=== PATIENT | female | born 1940 | race African-American/Black ===

== ENCOUNTER 2017-03-07 18:08 | Inpatient (IN) | payer MEDICARE, MEDICAID ==
[2017-03-07] MEDS ORDERED: Sodium Chloride 0.9% 1,000 ML IV ONE (20:41)
--- NOTE | 2017-03-07 20:44 | ED Physician Chart ---
ED Chief Complaint/HPI - Patient Information Date Seen:: 03/07/17 Time Seen:: 20:30 Chief Complaint:: abnormal labs History of Present Illness:: location: general quality: abnormal labs severity: mild, mod duration: few days context: SNF pt had routine labs drawn today. sodium is found to be low. pt case discussed with SNF physician who advised to send pt to ER for ER medical screening exam. pt reports no pain complaint. no chest pain, no shortness of breath. no acute complaint from patient on arrival. when reevaluated by RN and physician. pt says she feels a little weak and dizzy. 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: none hx from pt, medic, rn Allergies:: Allergies Allergy/AdvReac Type Severity Reaction Status Date / Time lovastatin Allergy Verified 03/07/17 18:40 Vitals:: Vital Signs - 8 hr 03/07/17 18:23 Temp 97.7 F HR 69 RR 18 BP 140/80 O2 Sat % 97 Historian:: Patient, EMS, Medical Records Review:: Nurse's Note Reviewed, EMS run form Reviewed ED Review of Systems - Review of Systems General/Constitutional: No fever, No chills, No weight loss, No weakness, No diaphoresis, No edema, No loss of appetite Skin: No skin lesions, No rash, No bruising Head: No headache, No light-headedness Eyes: No loss of vision, No pain, No diplopia ENT: No earache, No nasal drainage, No sore throat, No tinnitus Neck: No neck pain, No swelling, No thyromegaly, No stiffness, No mass noted Cardio Vascular: No chest pain, No palpitations, No PND, No orthopnea, No edema Pulmonary: No SOB, No cough, No sputum, No wheezing GI: No nausea, No vomiting, No diarrhea, No pain, No melena, No hematochezia, No constipation, No hematemesis G/U: No dysuria, No frequency, No hematuria Musculoskeletal: No bone or joint pain, No back pain, No muscle pain Endocrine: No polyuria, No polydipsia Psychiatric: No prior psych history, No depression, No anxiety, No suicidal ideation Hematopoietic: No bruising, No lymphadenopathy Allergic/Immuno: No urticaria, No angioedema Neurological: No syncope, No focal symptoms, No weakness, No paresthesia, No headache, No seizure, No dizziness, No confusion, No vertigo ED Past Medical History - Past Medical History Past Medical History: HTN, PUD/GERD, Dementia (constipation) Family History: None Social History: Non Smoker, No Alcohol, No Drug Use, Single, Care Facility Surgical History: None Psychiatricy History: Schizophrenia, Dementia, Other Medication: Reviewed Family Medical History - Family Member Mother History Unknown: Yes ED Physical Exam - Physical Examination General/Constitutional: Awake, Well-developed, well-nourished, Alert, No distress, GCS 15, Non-toxic appearing, Ambulatory Head: Atraumatic Eyes: Lids, conjuctiva normal, PERRL, EOMI Skin: Nl inspection, No rash, No skin lesions, No ecchymosis, Well hydrated, No lymphadenopathy ENMT: External ears, nose nl, Nasal exam nl, Lips, teeth, gums nl Neck: Nontender, Full ROM w/o pain, No JVD, No nuchal rigidity, No bruit, No mass, No stridor Respiratory: Nl effort/Exclusion, Clear to Auscultation, No Wheeze/Rhonchi/Rales Cardio Vascular: RRR, No murmur, gallop, rubs, NL S1 S2 GI: No tenderness/rebounding/guarding, Normal BS's, Nondistended : No CVA tenderness Extremities: No tenderness or effusion, Full ROM, normal strength in all extremities, No edema, Normal digits & nails Neuro/Psych: Alert/oriented, Normal sensory exam, Normal motor strength, Judgement/insight normal, Mood normal, Normal gait, No focal deficits Misc: Normal back, No paraspinal tenderness ED Assessment - Assessment General Assessment: pt in stable condition while in ER. ambulated to bathroom with RN with steady but slow gait. no fall, no instability. ED Septic Shock - . Is Septic Shock (SBP<90, OR Lactate>4 mmol\L) present?: No - <6hrs of presentation: Vital Signs: Vital Signs - 8 hr 03/07/17 18:23 Temp 97.7 F HR 69 RR 18 BP 140/80 O2 Sat % 97 ED Reassessment (Disposition) - Reassessment Reassessment:: pt in stable condition while in ER. still reports some generalized weakness, and some mild dizziness when ambulating with assistance. Reassessment Condition:: Improved - Diagnosis Diagnosis:: Hyponatremia, generalized weakness. - Patient Disposition Discharge/Transfer:: Acute Care w/in this hosp Admitted to:: Med/Surg Admitting Medical Physician:: Phan Hernandez Time:: 23:30 Condition at Disposition:: Stable, Improved
[2017-03-07 21:00] LABS: EOSINOPHILE ABSOLUTE 0.2 Th/cmm (0.1-0.4); HEMATOCRIT 32.8 % (41.0-60); HEMOGLOBIN 11.2 gm/dL (12-16); LYMPHOCYTE ABSOLUTE 0.4 Th/cmm (1.5-3.0); MEAN CELL VOLUME 89.3 fl (81-100); MEAN CORPUSCULAR HEMOGLOBIN 30.6 pg (27.0-31.0); MEAN CORPUSCULAR HGB CONC 34.3 pg (28.0-36.0); MEAN PLATELET VOLUME 5.9 fl; MONOCYTE ABSOLUTE 1.9 Th/cmm (0.3-1.0); PLATELET COUNT 356 Th/cmm (150-400); RED BLOOD COUNT 3.67 Mil/cmm (3.80-5.20); WHITE BLOOD COUNT 6.5 Th/cmm (4.8-10.8)
[2017-03-07 21:23] LABS: ALB/GLOB RATIO 1.3 (1.0-1.8); ALBUMIN 4.3 gm/dL (3.7-5.3); ALKALINE PHOSPHATASE 89 U/L (34-104); ANION GAP 11.2 (7.0-16.0); BILIRUBIN,TOTAL 0.5 mg/dL (0.3-1.0); BUN - UREA NITROGEN 10 mg/dL (7-25); CALCIUM SERUM 9.3 mg/dL (8.6-10.3); CARBON DIOXIDE 24.1 mEq/L (21.0-31.0); CHLORIDE 87 mEq/L (98-107); CREATININE - SERUM 0.6 mg/dL (0.6-1.2); GLUCOSE 123 mg/dL (70-105); POTASSIUM SERUM 4.3 mEq/L (3.5-5.1); SGOT 48 U/L (13-39); SGPT/ALT 22 U/L (7-52); TOTAL PROTEIN,SERUM 7.5 gm/dL (6.0-8.3)
[2017-03-07 21:28] LABS: SODIUM SERUM 118 mEq/L (136-145)
[2017-03-07 21:52] LABS: BAND NEUTROPHILE 0 % (0-10); BASOPHIL 0 % (0-3); EOSINOPHIL 1 % (0-5); LYMPHOCYTE 40 % (20-50); MONOCYTE 9 % (2-10); NEUTROPHILS 50 % (40-80); PLATELET ESTIMATE ADEQUATE (NORMAL); PLATELET MORPHOLOGY NORMAL (NORMAL); TOTAL CELLS COUNTED 100
[2017-03-07 22:27] LABS: URINE MICROSCOPIC INDICATED? YES; URINE SOURCE CLEAN C
[2017-03-07 22:33] LABS: URINE BILIRUBIN NEGATIVE (NEGATIVE); URINE BLOOD NEGATIVE (NEGATIVE); URINE CLARITY CLEAR (CLEAR); URINE COLOR OTHER; URINE GLUCOSE (UA) NEGATIVE (NEGATIVE); URINE KETONE NEGATIVE (NEGATIVE); URINE LEUKOCYTE ESTERASE NEGATIVE (NEGATIVE); URINE NITRATE NEGATIVE (NEGATIVE); URINE PROTEIN NEGATIVE (NEGATIVE); URINE UROBILINOGEN 0.2 E.U./dL (0.2 - 1.0)
[2017-03-07 22:34] LABS: URINE BACTERIA FEW /hpf (NONE SEEN); URINE EPITHELIAL CELLS FEW /lpf (FEW); URINE RBC 0-2 /hpf (0-5); URINE WBC 0-2 /hpf (0-5)
[2017-03-07 23:15] LABS: INF A SCREEN NEG FOR INF A; INF B SCREEN NEG FOR INF B
[2017-03-08] MEDS ORDERED: Sodium Chloride 0.9% 1,000 ML IV ONE (00:50)
[2017-03-08 03:35] VITALS: BP 146/75
--- NOTE | 2017-03-08 08:00 | Diagnostic Imaging Report ---
Portable chest x-ray Time: 2249 hours History: Cough Allowing for portable technique the heart size is normal. No focal pulmonary parenchymal processes. No hilar or mediastinal abnormalities. Impression: No acute abnormalities.
[2017-03-08] MEDS ORDERED: Sodium Chloride 3% 500 ML IV ONE (18:00)
--- NOTE | 2017-03-08 19:02 | History and Physical ---
History of Present Illness - HPI Chief Complaint: abnormal labs HPI: This is a 76 year old female who is a correction resident [facility] to hyponatremia. Patient did no have any fevers but complained of weakness and dizziness. Vital Signs: Last Vital Signs Temp 98.3 F 03/08/17 16:00 Pulse 64 03/08/17 16:00 Resp 18 03/08/17 16:00 BP 156/82 03/08/17 16:00 Pulse Ox 98 03/08/17 16:00 Past Medical History Other History: HTN, PUD/GERD, Dementia Family Medical History - Family Member Mother History Unknown: Yes Social History Smoke: No Alcohol: None Drugs: None Lives: Senior Care - Medications Home Medications: Home Medication Medication Instructions Recorded Type Amlodipine Besylate 5 mg PO DAILY 03/07/17 History Aspirin 325 mg PO DAILY 03/07/17 History Cilostazol 100 mg PO BID 03/07/17 History Cyanocobalamin (Vitamin B-12) 1,000 mcg PO DAILY 03/07/17 History [Vitamin B-12] Docusate Sodium [Colace] 100 mg PO DAILY 03/07/17 History Donepezil Hcl [Aricept] 5 mg PO DAILY 03/07/17 History Donepezil Hcl [Aricept] 10 mg PO DAILY 03/07/17 History Gabapentin 300 mg PO TID 03/07/17 History Lisinopril 5 mg PO DAILY 03/07/17 History Omeprazole 20 mg PO DAILY 03/07/17 History Risperidone 0.5 mg PO HS 03/07/17 History Sodium Chloride Tab [NaCL Tab] 1 gm PO BID 03/07/17 History - Allergies Allergies/Adverse Reactions: Allergies Allergy/AdvReac Type Severity Reaction Status Date / Time lovastatin Allergy Verified 03/07/17 18:40 Review of Systems - Review of Systems Constitutional: Report: No Significant Eyes: Report: No Significant Respiratory: Report: No Significant Cardiovascular: Report: No Significant Genitourinary: Report: No Significant Musculoskeletal: Report: No Significant Neurological: Report: Weakness Physical Exam - Physical Exam HEENT: Report: Ears Nose Throat within normal limits Neck: Report: Within normal limits Cardiovascular Systems: Report: +s1/s2 noted Respiratory: Report: Breath Sounds are within normal limits Abdomen: Report: Non-tender to palpation Back: Report: Inspection of back is within normal limits. Extremities: Report: Non-tender to palpation. Skin: Report: Color of skin is within normal limits, Warm, Dry Neuro/Psych: Report: Mood affect is within normal limits - Lab Results All Lab Results last 24 hours: Laboratory Results - last 24 hr 03/08/17 00:24 POC Glucose 123 H - Assessment Assessment: HYPONATREMIA HTN PUD/GERD Dementia - Plan Plan: ivf for hydration monitor electrolytes continue current orders
--- NOTE | 2017-03-09 02:49 | Consultation ---
DATE OF CONSULTATION: 03/08/2017 REASON FOR CONSULTATION: Severe hyponatremia. HISTORY OF PRESENT ILLNESS: This is a 76-year-old -[place] female with a past medical history of hypertension, who was brought in because of low sodium level. A few days prior to admission, the patient experienced generalized weakness. A few hours prior to admission, labs drawn at [facility] revealed a low sodium. She was brought to the Emergency Room. Sodium level was 118. She was started on normal saline. She denied any nausea and vomiting as well as diarrhea. PAST MEDICAL HISTORY: 1. COPD. 2. Essential hypertension. 3. Peripheral arterial disease. 4. Psychosis. 5. GERD. 6. Dementia with behavioral disturbance. 7. Migraine headache. 8. Cataracts. CURRENT MEDICATIONS: She is currently on clonidine as well as normal saline. ALLERGIES: Allergic to LOVASTATIN. SOCIAL HISTORY: Denied any history of alcohol or tobacco use. FAMILY HISTORY: Noncontributory to present illness. REVIEW OF SYSTEMS: CONSTITUTIONAL: She did complain of generalized weakness, appetite had been fair, no fever or chills. HEENT: No mention of headaches, no dizziness. CARDIORESPIRATORY: No chest pain, palpitations, diaphoresis, or cough. No shortness of breath. GASTROINTESTINAL: No nausea, vomiting, abdominal pain or cramping, hematemesis, melena, hematochezia, nor diarrhea. ENDOCRINE: No history of diabetes, thyroid abnormalities, dyslipidemia. MUSCULOSKELETAL: Multiple joint arthralgias. GENITOURINARY: No history of kidney failure in the past. HEMATOLOGIC: Mild anemia. NEUROPSYCHIATRIC: No syncopal episode or seizure activity. PHYSICAL EXAMINATION: GENERAL: The patient is awake, verbal, and comfortable. VITAL SIGNS: Blood pressure is 165/75, pulse is 69, and temperature 98.4 degrees. SKIN: Good turgor, warm, no rash, no jaundice appreciated. HEENT: Head normocephalic and atraumatic. EYES: Extraocular muscles intact. Pupils equal, round, reactive to light and accommodate. Anicteric sclerae, pale conjunctivae. Nose, midline nasal septum. Mouth, moist mucosa, adequate dentition. NECK: Supple, no adenopathy, no thyromegaly, no bruits. Trachea palpated in the midline. CHEST AND CARDIOVASCULAR: S1, S2. No rub, murmur, nor gallop appreciated. Point of maximal impulse fifth intercostal space, left midclavicular line. No abdominal or femoral bruits appreciated. LUNGS: Equal expansion. No use of accessory muscles. No supraclavicular retractions, decreased breath sounds, clear to auscultation without any wheeze. ABDOMEN: Flat and soft. Positive for bowel sounds. No bruits either diastolic or systolic. RECTAL: The patient refused. GENITOURINARY: She also refused. MUSCULOSKELETAL: No effusions present in her joints with limited range of motion. EXTREMITIES: No evidence of edema, cyanosis, nor clubbing with palpable femoral, popliteal, and dorsalis pedis pulses. NEUROLOGIC: The patient is alert, verbal, motor is 5/5. Cranial nerves III through XII intact. Sensory intact. LABORATORY DATA: Sodium is 118, potassium 4.3, chloride 87, BUN is 10, creatinine 0.6, carbon dioxide 24, glucose 123, and albumin 4.3. IMPRESSION: 1. Hyponatremia, etiology unknown at the present time. 2. Generalized weakness may be secondary to her acute hyponatremia. 3. Chronic obstructive pulmonary disease. 4. Essential hypertension. 5. Peripheral arterial disease. 6. Psychosis. 7. Gastroesophageal reflux disease.. 8. Dementia with behavioral disturbance. 9. Migraine headaches. 10. Cataracts. PLAN: 1. Start the patient on hypertonic solution 500 mL over 24 hours. Try to avoid more than an increase of 12 mEq per 24 hours to avoid hyperosmolar demyelination syndrome. 2. Urinalysis. 3. Urine spot sodium, eosinophils, and creatinine. 4. Serum osmolality as well as uric acid. Thank you Dr. Hernandez for this consult. We will follow the patient closely with you. JOB# [id number]
[2017-03-09 07:28] LABS: URINE MICROSCOPIC INDICATED? YES; URINE SOURCE MIDSTREAM
[2017-03-09 07:30] LABS: BASOPHILE ABSOLUTE 0.3 Th/cumm (0-0.2); HEMOGLOBIN 12.9 gm/dL (12-16); LYMPHOCYTE ABSOLUTE 2.4 Th/cmm (1.5-3.0); MEAN CORPUSCULAR HEMOGLOBIN 29.7 pg (27.0-31.0); MEAN CORPUSCULAR HGB CONC 33.3 pg (28.0-36.0); MEAN PLATELET VOLUME 6.2 fl; MONOCYTE ABSOLUTE 0.5 Th/cmm (0.3-1.0); NEUTROPHILE ABSOLUTE 1.1 Th/cmm (1.8-8.0); PLATELET COUNT 383 Th/cmm (150-400); RED BLOOD COUNT 4.34 Mil/cmm (3.80-5.20); RED CELL DISTRIBUTION WIDTH 13.1 % (11.5-20.0)
[2017-03-09 07:31] LABS: HEMATOCRIT 38.6 % (41.0-60); WHITE BLOOD COUNT 4.3 Th/cmm (4.8-10.8)
[2017-03-09 07:41] LABS: URINE BILIRUBIN NEGATIVE (NEGATIVE); URINE BLOOD NEGATIVE (NEGATIVE); URINE GLUCOSE (UA) NEGATIVE (NEGATIVE); URINE KETONE NEGATIVE (NEGATIVE); URINE LEUKOCYTE ESTERASE TRACE (NEGATIVE); URINE NITRATE NEGATIVE (NEGATIVE); URINE PH 6.5 (4.6 - 8.0); URINE PROTEIN NEGATIVE (NEGATIVE); URINE UROBILINOGEN 0.2 E.U./dL (0.2 - 1.0)
[2017-03-09 07:46] LABS: URINE CLARITY CLEAR (CLEAR); URINE COLOR YELLOW
[2017-03-09 07:47] LABS: ALB/GLOB RATIO 1.3 (1.0-1.8); ALBUMIN 4.4 gm/dL (3.7-5.3); ALKALINE PHOSPHATASE 87 U/L (34-104); ANION GAP 12.5 (7.0-16.0); BILIRUBIN,TOTAL 0.6 mg/dL (0.3-1.0); BUN - UREA NITROGEN 10 mg/dL (7-25); CALCIUM SERUM 9.5 mg/dL (8.6-10.3); CARBON DIOXIDE 22.6 mEq/L (21.0-31.0); CHLORIDE 98 mEq/L (98-107); CREATININE - SERUM 0.6 mg/dL (0.6-1.2); GLUCOSE 93 mg/dL (70-105); POTASSIUM SERUM 4.1 mEq/L (3.5-5.1); SGOT 46 U/L (13-39); SGPT/ALT 21 U/L (7-52); SODIUM SERUM 129 mEq/L (136-145); TOTAL PROTEIN,SERUM 7.9 gm/dL (6.0-8.3); URIC ACID 3.7 mg/dL (2.3-6.6)
[2017-03-09 07:49] LABS: URINE RBC 0-2 /hpf (0-5)
[2017-03-09 07:50] LABS: URINE BACTERIA 2+ /hpf (NONE SEEN); URINE EPITHELIAL CELLS FEW /lpf (FEW)
[2017-03-09] MEDS: Pantoprazole 40 mg EC Tab PO SCH (09:01)
--- NOTE | 2017-03-09 09:53 | General Progress Note ---
Subjective - Review of Systems Events since last encounter: c/o weakness denies cp,sob Objective - Results Result Diagrams: 03/09/17 07:00 03/09/17 07:00 Recent Labs: Laboratory Last Values WBC 4.3 Th/cmm (4.8-10.8) L D 03/09/17 07:00 RBC 4.34 Mil/cmm (3.80-5.20) 03/09/17 07:00 Hgb 12.9 gm/dL (12-16) 03/09/17 07:00 Hct 38.6 % (41.0-60) L D 03/09/17 07:00 MCV 89.0 fl (81-100) 03/09/17 07:00 MCH 29.7 pg (27.0-31.0) 03/09/17 07:00 MCHC Differential 33.3 pg (28.0-36.0) 03/09/17 07:00 RDW 13.1 % (11.5-20.0) 03/09/17 07:00 Plt Count 383 Th/cmm (150-400) 03/09/17 07:00 MPV 6.2 fl 03/09/17 07:00 Band Neutrophils % 0 % (0-10) 03/07/17 20:55 Neutrophils (Manual) 50 % (40-80) 03/07/17 20:55 Lymphocytes 40 % (20-50) 03/07/17 20:55 Monocytes 9 % (2-10) 03/07/17 20:55 Eosinophils 1 % (0-5) 03/07/17 20:55 Basophils 0 % (0-3) 03/07/17 20:55 Platelet Estimate ADEQUATE (NORMAL) 03/07/17 20:55 Platelet Morphology NORMAL (NORMAL) 03/07/17 20:55 RBC Morph Micro Appear NORMAL (NORMAL) 03/07/17 20:55 Sodium 129 mEq/L (136-145) L 03/09/17 07:00 Potassium 4.1 mEq/L (3.5-5.1) 03/09/17 07:00 Chloride 98 mEq/L (98-107) 03/09/17 07:00 Carbon Dioxide 22.6 mEq/L (21.0-31.0) 03/09/17 07:00 Anion Gap 12.5 (7.0-16.0) 03/09/17 07:00 BUN 10 mg/dL (7-25) 03/09/17 07:00 Creatinine 0.6 mg/dL (0.6-1.2) 03/09/17 07:00 Est GFR ( Amer) TNP 03/09/17 07:00 Est GFR (Non-Af Amer) TNP 03/09/17 07:00 BUN/Creatinine Ratio 16.7 03/09/17 07:00 Glucose 93 mg/dL (70-105) 03/09/17 07:00 POC Glucose 123 MG/DL (70 - 105) H 03/08/17 00:24 Whole Bld Lactic Acid 0.75 mmol/L (0.60-1.99) 03/07/17 20:55 Uric Acid 3.7 mg/dL (2.3-6.6) 03/09/17 07:00 Calcium 9.5 mg/dL (8.6-10.3) 03/09/17 07:00 Total Bilirubin 0.6 mg/dL (0.3-1.0) 03/09/17 07:00 AST 46 U/L (13-39) H 03/09/17 07:00 ALT 21 U/L (7-52) 03/09/17 07:00 Alkaline Phosphatase 87 U/L (34-104) 03/09/17 07:00 Total Protein 7.9 gm/dL (6.0-8.3) 03/09/17 07:00 Albumin 4.4 gm/dL (3.7-5.3) 03/09/17 07:00 Globulin 3.5 gm/dL 03/09/17 07:00 Albumin/Globulin Ratio 1.3 (1.0-1.8) 03/09/17 07:00 TSH 1.54 uIU/ml (0.34-5.60) 03/09/17 07:00 Urine Source MIDSTREAM 03/09/17 06:08 Urine Color YELLOW 03/09/17 06:08 Urine Clarity CLEAR (CLEAR) 03/09/17 06:08 Urine pH 6.5 (4.6 - 8.0) 03/09/17 06:08 Ur Specific [place] 1.010 (1.005-1.030) 03/09/17 06:08 Urine Protein NEGATIVE mg/dL (NEGATIVE) 03/09/17 06:08 Urine Glucose (UA) NEGATIVE mg/dL (NEGATIVE) 03/09/17 06:08 Urine Ketones NEGATIVE mg/dL (NEGATIVE) 03/09/17 06:08 Urine Blood NEGATIVE (NEGATIVE) 03/09/17 06:08 Urine Nitrate NEGATIVE (NEGATIVE) 03/09/17 06:08 Urine Bilirubin NEGATIVE (NEGATIVE) 03/09/17 06:08 Urine Urobilinogen 0.2 E.U./dL (0.2 - 1.0) 03/09/17 06:08 Ur Leukocyte Esterase TRACE (NEGATIVE) H 03/09/17 06:08 Urine RBC 0-2 /hpf (0-5) 03/09/17 06:08 Urine WBC 2-5 /hpf (0-5) 03/09/17 06:08 Ur Epithelial Cells FEW /lpf (FEW) 03/09/17 06:08 Urine Bacteria 2+ /hpf (NONE SEEN) H 03/09/17 06:08 Ur Random Sodium 105 mmol/L 03/09/17 06:08 Influenza A (Rapid) NEG FOR INF A 03/07/17 22:45 Influenza B (Rapid) NEG FOR INF B 03/07/17 22:45 - Physical Exam Vitals and I&O: Vital Signs Temp 97.3 F 03/09/17 08:17 Pulse 66 03/09/17 09:05 Resp 18 03/09/17 08:17 BP 162/71 03/09/17 09:02 Pulse Ox 100 03/09/17 08:17 Intake & Output 03/08/17 03/09/17 03/09/17 18:59 06:59 18:59 Intake Total 420 360 Balance 420 360 Weight (lbs) 60.328 kg 61.689 kg Intake: Oral 420 360 Other: # Voids 1 # Bowel Movements 1 Active Medications: Current Medications Amlodipine Besylate (Norvasc) 5 mg PO DAILY [facility] Stop: 05/08/17 08:59 Last Admin: 03/09/17 09:01 Dose: 5 mg Aspirin (Aspirin) 325 mg PO DAILY [facility] Stop: 05/08/17 08:59 Last Admin: 03/09/17 09:01 Dose: 325 mg Cilostazol (Pletal) 100 mg PO BID [facility] Stop: 05/08/17 08:59 Last Admin: 03/09/17 09:01 Dose: 100 mg Cyanocobalamin (Vitamin B12) 1,000 mcg PO DAILY [facility] Stop: 05/08/17 08:59 Last Admin: 03/09/17 09:01 Dose: 1,000 mcg Docusate Sodium (Colace) 100 mg PO DAILY [facility] Stop: 05/08/17 08:59 Last Admin: 03/09/17 09:01 Dose: 100 mg Donepezil HCl (Aricept) 10 mg PO DAILY [facility] Stop: 05/08/17 08:59 Last Admin: 03/09/17 09:01 Dose: 10 mg Gabapentin (Neurontin) 300 mg PO TID [facility] Stop: 05/07/17 20:59 Last Admin: 03/09/17 09:01 Dose: 300 mg Sodium Chloride (Hypertonic 3%) 500 mls @ 20 mls/hr IV X1 ONE Stop: 03/09/17 18:59 Last Admin: 03/08/17 18:16 Dose: 20 mls/hr Lisinopril (Zestril) 5 mg PO DAILY [facility] Stop: 05/08/17 08:59 Last Admin: 03/09/17 09:02 Dose: 5 mg Pantoprazole Sodium (Protonix) 40 mg PO DAILY [facility] Stop: 05/08/17 08:59 Last Admin: 03/09/17 09:01 Dose: 40 mg Risperidone (Risperdal) 0.5 mg PO HS [facility] PRN Reason: Protocol Stop: 05/07/17 20:59 Last Admin: 03/08/17 20:45 Dose: 0.5 mg Sodium Chloride (Nacl Tab) 1 gm PO BID [facility] Stop: 05/08/17 08:59 Last Admin: 03/09/17 09:01 Dose: 1 gm Assessment/Plan - Assessment Assessment: HYPONATREMIA HTN PUD/GERD Dementia - Plan Plan: ivf for hydration monitor electrolytes continue current orders
--- NOTE | 2017-03-09 17:22 | General Progress Note ---
Subjective - Review of Systems Service Date: 03/09/17 Subjective: alert, comfortable Objective - Results Result Diagrams: 03/09/17 07:00 03/09/17 07:00 Recent Labs: Laboratory Last Values WBC 4.3 Th/cmm (4.8-10.8) L D 03/09/17 07:00 RBC 4.34 Mil/cmm (3.80-5.20) 03/09/17 07:00 Hgb 12.9 gm/dL (12-16) 03/09/17 07:00 Hct 38.6 % (41.0-60) L D 03/09/17 07:00 MCV 89.0 fl (81-100) 03/09/17 07:00 MCH 29.7 pg (27.0-31.0) 03/09/17 07:00 MCHC Differential 33.3 pg (28.0-36.0) 03/09/17 07:00 RDW 13.1 % (11.5-20.0) 03/09/17 07:00 Plt Count 383 Th/cmm (150-400) 03/09/17 07:00 MPV 6.2 fl 03/09/17 07:00 Band Neutrophils % 0 % (0-10) 03/07/17 20:55 Neutrophils (Manual) 50 % (40-80) 03/07/17 20:55 Lymphocytes 40 % (20-50) 03/07/17 20:55 Monocytes 9 % (2-10) 03/07/17 20:55 Eosinophils 1 % (0-5) 03/07/17 20:55 Basophils 0 % (0-3) 03/07/17 20:55 Platelet Estimate ADEQUATE (NORMAL) 03/07/17 20:55 Platelet Morphology NORMAL (NORMAL) 03/07/17 20:55 RBC Morph Micro Appear NORMAL (NORMAL) 03/07/17 20:55 Sodium 129 mEq/L (136-145) L 03/09/17 07:00 Potassium 4.1 mEq/L (3.5-5.1) 03/09/17 07:00 Chloride 98 mEq/L (98-107) 03/09/17 07:00 Carbon Dioxide 22.6 mEq/L (21.0-31.0) 03/09/17 07:00 Anion Gap 12.5 (7.0-16.0) 03/09/17 07:00 BUN 10 mg/dL (7-25) 03/09/17 07:00 Creatinine 0.6 mg/dL (0.6-1.2) 03/09/17 07:00 Est GFR ( Amer) TNP 03/09/17 07:00 Est GFR (Non-Af Amer) TNP 03/09/17 07:00 BUN/Creatinine Ratio 16.7 03/09/17 07:00 Glucose 93 mg/dL (70-105) 03/09/17 07:00 POC Glucose 123 MG/DL (70 - 105) H 03/08/17 00:24 Whole Bld Lactic Acid 0.75 mmol/L (0.60-1.99) 03/07/17 20:55 Uric Acid 3.7 mg/dL (2.3-6.6) 03/09/17 07:00 Calcium 9.5 mg/dL (8.6-10.3) 03/09/17 07:00 Total Bilirubin 0.6 mg/dL (0.3-1.0) 03/09/17 07:00 AST 46 U/L (13-39) H 03/09/17 07:00 ALT 21 U/L (7-52) 03/09/17 07:00 Alkaline Phosphatase 87 U/L (34-104) 03/09/17 07:00 Total Protein 7.9 gm/dL (6.0-8.3) 03/09/17 07:00 Albumin 4.4 gm/dL (3.7-5.3) 03/09/17 07:00 Globulin 3.5 gm/dL 03/09/17 07:00 Albumin/Globulin Ratio 1.3 (1.0-1.8) 03/09/17 07:00 TSH 1.54 uIU/ml (0.34-5.60) 03/09/17 07:00 Urine Source MIDSTREAM 03/09/17 06:08 Urine Color YELLOW 03/09/17 06:08 Urine Clarity CLEAR (CLEAR) 03/09/17 06:08 Urine pH 6.5 (4.6 - 8.0) 03/09/17 06:08 Ur Specific [place] 1.010 (1.005-1.030) 03/09/17 06:08 Urine Protein NEGATIVE mg/dL (NEGATIVE) 03/09/17 06:08 Urine Glucose (UA) NEGATIVE mg/dL (NEGATIVE) 03/09/17 06:08 Urine Ketones NEGATIVE mg/dL (NEGATIVE) 03/09/17 06:08 Urine Blood NEGATIVE (NEGATIVE) 03/09/17 06:08 Urine Nitrate NEGATIVE (NEGATIVE) 03/09/17 06:08 Urine Bilirubin NEGATIVE (NEGATIVE) 03/09/17 06:08 Urine Urobilinogen 0.2 E.U./dL (0.2 - 1.0) 03/09/17 06:08 Ur Leukocyte Esterase TRACE (NEGATIVE) H 03/09/17 06:08 Urine RBC 0-2 /hpf (0-5) 03/09/17 06:08 Urine WBC 2-5 /hpf (0-5) 03/09/17 06:08 Ur Epithelial Cells FEW /lpf (FEW) 03/09/17 06:08 Urine Bacteria 2+ /hpf (NONE SEEN) H 03/09/17 06:08 Ur Random Sodium 105 mmol/L 03/09/17 06:08 Influenza A (Rapid) NEG FOR INF A 03/07/17 22:45 Influenza B (Rapid) NEG FOR INF B 03/07/17 22:45 - Physical Exam Vitals and I&O: Vital Signs Temp 98.0 F 03/09/17 16:00 Pulse 61 03/09/17 16:00 Resp 18 03/09/17 16:00 BP 100/55 03/09/17 16:00 Pulse Ox 96 03/09/17 16:00 Intake & Output 03/08/17 03/09/17 03/09/17 18:59 06:59 18:59 Intake Total 420 360 Balance 420 360 Weight (lbs) 60.328 kg 61.689 kg Intake: Oral 420 360 Other: # Voids 1 # Bowel Movements 1 Active Medications: Current Medications Amlodipine Besylate (Norvasc) 5 mg PO DAILY [facility] Stop: 05/08/17 08:59 Last Admin: 03/09/17 09:01 Dose: 5 mg Aspirin (Aspirin) 325 mg PO DAILY [facility] Stop: 05/08/17 08:59 Last Admin: 03/09/17 09:01 Dose: 325 mg Cilostazol (Pletal) 100 mg PO BID [facility] Stop: 05/08/17 08:59 Last Admin: 03/09/17 16:51 Dose: 100 mg Cyanocobalamin (Vitamin B12) 1,000 mcg PO DAILY [facility] Stop: 05/08/17 08:59 Last Admin: 03/09/17 09:01 Dose: 1,000 mcg Docusate Sodium (Colace) 100 mg PO DAILY [facility] Stop: 05/08/17 08:59 Last Admin: 03/09/17 09:01 Dose: 100 mg Donepezil HCl (Aricept) 10 mg PO DAILY [facility] Stop: 05/08/17 08:59 Last Admin: 03/09/17 09:01 Dose: 10 mg Gabapentin (Neurontin) 300 mg PO TID [facility] Stop: 05/07/17 20:59 Last Admin: 03/09/17 13:42 Dose: 300 mg Sodium Chloride (Hypertonic 3%) 500 mls @ 20 mls/hr IV X1 ONE Stop: 03/09/17 18:59 Last Admin: 03/08/17 18:16 Dose: 20 mls/hr Lisinopril (Zestril) 5 mg PO DAILY [facility] Stop: 05/08/17 08:59 Last Admin: 03/09/17 09:02 Dose: 5 mg Pantoprazole Sodium (Protonix) 40 mg PO DAILY [facility] Stop: 05/08/17 08:59 Last Admin: 03/09/17 09:01 Dose: 40 mg Risperidone (Risperdal) 0.5 mg PO HS [facility] PRN Reason: Protocol Stop: 05/07/17 20:59 Last Admin: 03/08/17 20:45 Dose: 0.5 mg Sodium Chloride (Nacl Tab) 1 gm PO BID [facility] Stop: 05/08/17 08:59 Last Admin: 03/09/17 16:52 Dose: 1 gm General: Alert, No acute distress HEENT: Atraumatic, PERRLA, Mucous membr. moist/pink Neck: Supple, +2 carotid pulse wo bruit Cardiovascular: Regular rate, Normal S1, Normal S2 Lungs: Clear to auscultation Abdomen: Distended Extremities: no Edema Neurological: Sensation intact Skin: no Rash Psych/Mental Status: Mood NL Assessment/Plan - Assessment Assessment: Hypokalemia COPD Ess Htn PAD Psych GERD Dementia Migraine GALEAS - Plan Plan: Lab - Result Diagrams 03/09/17 07:00 Lab - Result Diagrams 03/09/17 07:00 03/09/17 07:00 03/09/17 07:00 Current Medications Amlodipine Besylate (Norvasc) 5 mg PO DAILY [facility] Stop: 05/08/17 08:59 Last Admin: 03/09/17 09:01 Dose: 5 mg Aspirin (Aspirin) 325 mg PO DAILY [facility] Stop: 05/08/17 08:59 Last Admin: 03/09/17 09:01 Dose: 325 mg Cilostazol (Pletal) 100 mg PO BID [facility] Stop: 05/08/17 08:59 Last Admin: 03/09/17 16:51 Dose: 100 mg Cyanocobalamin (Vitamin B12) 1,000 mcg PO DAILY [facility] Stop: 05/08/17 08:59 Last Admin: 03/09/17 09:01 Dose: 1,000 mcg Docusate Sodium (Colace) 100 mg PO DAILY [facility] Stop: 05/08/17 08:59 Last Admin: 03/09/17 09:01 Dose: 100 mg Donepezil HCl (Aricept) 10 mg PO DAILY [facility] Stop: 05/08/17 08:59 Last Admin: 03/09/17 09:01 Dose: 10 mg Gabapentin (Neurontin) 300 mg PO TID [facility] Stop: 05/07/17 20:59 Last Admin: 03/09/17 13:42 Dose: 300 mg Sodium Chloride (Hypertonic 3%) 500 mls @ 20 mls/hr IV X1 ONE Stop: 03/09/17 18:59 Last Admin: 03/08/17 18:16 Dose: 20 mls/hr Lisinopril (Zestril) 5 mg PO DAILY [facility] Stop: 05/08/17 08:59 Last Admin: 03/09/17 09:02 Dose: 5 mg Pantoprazole Sodium (Protonix) 40 mg PO DAILY [facility] Stop: 05/08/17 08:59 Last Admin: 03/09/17 09:01 Dose: 40 mg Risperidone (Risperdal) 0.5 mg PO HS [facility] PRN Reason: Protocol Stop: 05/07/17 20:59 Last Admin: 03/08/17 20:45 Dose: 0.5 mg Sodium Chloride (Nacl Tab) 1 gm PO BID [facility] Stop: 05/08/17 08:59 Last Admin: 03/09/17 16:52 Dose: 1 gm Lab - Result Diagrams 03/09/17 07:00 03/09/17 07:00 Na up to 129. continue NS f/u electrolytes
[2017-03-09] MEDS: Sodium Chloride 0.9% 1,000 ML IV SCH (20:38)
[2017-03-10] MEDS: Sodium Chloride 0.9% 1,000 ML IV SCH (06:50)
[2017-03-10 08:28] LABS: ANION GAP 11.2 (7.0-16.0); BUN - UREA NITROGEN 13 mg/dL (7-25); CHLORIDE 99 mEq/L (98-107); CREATININE - SERUM 0.6 mg/dL (0.6-1.2); GLUCOSE 94 mg/dL (70-105); POTASSIUM SERUM 4.2 mEq/L (3.5-5.1); SODIUM SERUM 128 mEq/L (136-145)
--- NOTE | 2017-03-10 09:12 | General Progress Note ---
Subjective - Review of Systems Events since last encounter: patient awake alert comfortable Objective - Results Result Diagrams: 03/09/17 07:00 03/09/17 07:00 Recent Labs: Laboratory Last Values WBC 4.3 Th/cmm (4.8-10.8) L D 03/09/17 07:00 RBC 4.34 Mil/cmm (3.80-5.20) 03/09/17 07:00 Hgb 12.9 gm/dL (12-16) 03/09/17 07:00 Hct 38.6 % (41.0-60) L D 03/09/17 07:00 MCV 89.0 fl (81-100) 03/09/17 07:00 MCH 29.7 pg (27.0-31.0) 03/09/17 07:00 MCHC Differential 33.3 pg (28.0-36.0) 03/09/17 07:00 RDW 13.1 % (11.5-20.0) 03/09/17 07:00 Plt Count 383 Th/cmm (150-400) 03/09/17 07:00 MPV 6.2 fl 03/09/17 07:00 Band Neutrophils % 0 % (0-10) 03/07/17 20:55 Neutrophils (Manual) 50 % (40-80) 03/07/17 20:55 Lymphocytes 40 % (20-50) 03/07/17 20:55 Monocytes 9 % (2-10) 03/07/17 20:55 Eosinophils 1 % (0-5) 03/07/17 20:55 Basophils 0 % (0-3) 03/07/17 20:55 Platelet Estimate ADEQUATE (NORMAL) 03/07/17 20:55 Platelet Morphology NORMAL (NORMAL) 03/07/17 20:55 RBC Morph Micro Appear NORMAL (NORMAL) 03/07/17 20:55 Sodium 129 mEq/L (136-145) L 03/09/17 07:00 Potassium 4.1 mEq/L (3.5-5.1) 03/09/17 07:00 Chloride 98 mEq/L (98-107) 03/09/17 07:00 Carbon Dioxide 22.6 mEq/L (21.0-31.0) 03/09/17 07:00 Anion Gap 12.5 (7.0-16.0) 03/09/17 07:00 BUN 10 mg/dL (7-25) 03/09/17 07:00 Creatinine 0.6 mg/dL (0.6-1.2) 03/09/17 07:00 Est GFR ( Amer) TNP 03/09/17 07:00 Est GFR (Non-Af Amer) TNP 03/09/17 07:00 BUN/Creatinine Ratio 16.7 03/09/17 07:00 Glucose 93 mg/dL (70-105) 03/09/17 07:00 POC Glucose 123 MG/DL (70 - 105) H 03/08/17 00:24 Whole Bld Lactic Acid 0.75 mmol/L (0.60-1.99) 03/07/17 20:55 Uric Acid 3.7 mg/dL (2.3-6.6) 03/09/17 07:00 Calcium 9.5 mg/dL (8.6-10.3) 03/09/17 07:00 Total Bilirubin 0.6 mg/dL (0.3-1.0) 03/09/17 07:00 AST 46 U/L (13-39) H 03/09/17 07:00 ALT 21 U/L (7-52) 03/09/17 07:00 Alkaline Phosphatase 87 U/L (34-104) 03/09/17 07:00 Total Protein 7.9 gm/dL (6.0-8.3) 03/09/17 07:00 Albumin 4.4 gm/dL (3.7-5.3) 03/09/17 07:00 Globulin 3.5 gm/dL 03/09/17 07:00 Albumin/Globulin Ratio 1.3 (1.0-1.8) 03/09/17 07:00 TSH 1.54 uIU/ml (0.34-5.60) 03/09/17 07:00 Urine Source MIDSTREAM 03/09/17 06:08 Urine Color YELLOW 03/09/17 06:08 Urine Clarity CLEAR (CLEAR) 03/09/17 06:08 Urine pH 6.5 (4.6 - 8.0) 03/09/17 06:08 Ur Specific [place] 1.010 (1.005-1.030) 03/09/17 06:08 Urine Protein NEGATIVE mg/dL (NEGATIVE) 01/24/18 06:08 Urine Glucose (UA) NEGATIVE mg/dL (NEGATIVE) 03/09/17 06:08 Urine Ketones NEGATIVE mg/dL (NEGATIVE) 03/09/17 06:08 Urine Blood NEGATIVE (NEGATIVE) 03/09/17 06:08 Urine Nitrate NEGATIVE (NEGATIVE) 03/09/17 06:08 Urine Bilirubin NEGATIVE (NEGATIVE) 03/09/17 06:08 Urine Urobilinogen 0.2 E.U./dL (0.2 - 1.0) 03/09/17 06:08 Ur Leukocyte Esterase TRACE (NEGATIVE) H 03/09/17 06:08 Urine RBC 0-2 /hpf (0-5) 03/09/17 06:08 Urine WBC 2-5 /hpf (0-5) 03/09/17 06:08 Ur Epithelial Cells FEW /lpf (FEW) 03/09/17 06:08 Urine Bacteria 2+ /hpf (NONE SEEN) H 03/09/17 06:08 Ur Random Sodium 105 mmol/L 03/09/17 06:08 Influenza A (Rapid) NEG FOR INF A 03/07/17 22:45 Influenza B (Rapid) NEG FOR INF B 03/07/17 22:45 - Physical Exam Vitals and I&O: Vital Signs Temp 98.3 F 03/10/17 08:00 Pulse 60 03/10/17 08:00 Resp 18 03/10/17 08:00 BP 155/74 03/10/17 08:00 Pulse Ox 100 03/10/17 08:00 Intake & Output 03/09/17 03/10/17 03/10/17 18:59 06:59 18:59 Intake Total 250 965 Output Total 800 Balance 250 165 Weight (lbs) 62.188 kg 59.874 kg Intake: Intake, IV Amount 765 Sodium Chloride 0.9% 1, 765 000 ml @ 75 mls/hr IV . [id number] [facility] Rx#:[id number] Oral 250 200 Output: Urine 800 Other: # Voids 2 3 # Bowel Movements 0 0 Active Medications: Current Medications Amlodipine Besylate (Norvasc) 5 mg PO DAILY [facility] Stop: 05/08/17 08:59 Last Admin: 03/09/17 09:01 Dose: 5 mg Aspirin (Aspirin) 325 mg PO DAILY [facility] Stop: 05/08/17 08:59 Last Admin: 03/09/17 09:01 Dose: 325 mg Cilostazol (Pletal) 100 mg PO BID [facility] Stop: 05/08/17 08:59 Last Admin: 03/09/17 16:51 Dose: 100 mg Cyanocobalamin (Vitamin B12) 1,000 mcg PO DAILY [facility] Stop: 05/08/17 08:59 Last Admin: 03/09/17 09:01 Dose: 1,000 mcg Docusate Sodium (Colace) 100 mg PO DAILY [facility] Stop: 05/08/17 08:59 Last Admin: 03/09/17 09:01 Dose: 100 mg Donepezil HCl (Aricept) 10 mg PO DAILY [facility] Stop: 05/08/17 08:59 Last Admin: 03/09/17 09:01 Dose: 10 mg Gabapentin (Neurontin) 300 mg PO TID [facility] Stop: 05/07/17 20:59 Last Admin: 03/09/17 20:37 Dose: 300 mg Sodium Chloride (Nacl 0.9%) 1,000 mls @ 75 mls/hr IV .[id number] [facility] Stop: 05/08/17 17:29 Last Admin: 03/10/17 06:50 Dose: 75 mls/hr Lisinopril (Zestril) 5 mg PO DAILY [facility] Stop: 05/08/17 08:59 Last Admin: 03/09/17 09:02 Dose: 5 mg Pantoprazole Sodium (Protonix) 40 mg PO DAILY [facility] Stop: 05/08/17 08:59 Last Admin: 03/09/17 09:01 Dose: 40 mg Risperidone (Risperdal) 0.5 mg PO [facility] PRN Reason: Protocol Stop: 05/07/17 20:59 Last Admin: 03/09/17 20:38 Dose: 0.5 mg Sodium Chloride (Nacl Tab) 1 gm PO BID [facility] Stop: 05/08/17 08:59 Last Admin: 03/09/17 16:52 Dose: 1 gm General: Alert, No acute distress HEENT: Atraumatic, PERRLA, Mucous membr. moist/pink Neck: Supple, +2 carotid pulse wo bruit Cardiovascular: Regular rate, Normal S1, Normal S2 Lungs: Clear to auscultation Abdomen: Distended Extremities: no Edema Neurological: Sensation intact Skin: no Rash Psych/Mental Status: Mood NL Assessment/Plan - Assessment Assessment: HYPONATREMIA HTN PUD/GERD Dementia - Plan Plan: ivf for hydration monitor electrolytes continue current orders
[2017-03-10] MEDS: Pantoprazole 40 mg EC Tab PO SCH (10:02)
--- NOTE | 2017-03-10 14:26 | General Progress Note ---
Subjective - Review of Systems Service Date: 03/10/17 Subjective: alert, comfortable, verbal Objective - Results Result Diagrams: 03/09/17 07:00 03/10/17 07:25 Recent Labs: Laboratory Last Values WBC 4.3 Th/cmm (4.8-10.8) L D 03/09/17 07:00 RBC 4.34 Mil/cmm (3.80-5.20) 03/09/17 07:00 Hgb 12.9 gm/dL (12-16) 03/09/17 07:00 Hct 38.6 % (41.0-60) L D 03/09/17 07:00 MCV 89.0 fl (81-100) 03/09/17 07:00 MCH 29.7 pg (27.0-31.0) 03/09/17 07:00 MCHC Differential 33.3 pg (28.0-36.0) 03/09/17 07:00 RDW 13.1 % (11.5-20.0) 03/09/17 07:00 Plt Count 383 Th/cmm (150-400) 03/09/17 07:00 MPV 6.2 fl 03/09/17 07:00 Band Neutrophils % 0 % (0-10) 03/07/17 20:55 Neutrophils (Manual) 50 % (40-80) 03/07/17 20:55 Lymphocytes 40 % (20-50) 03/07/17 20:55 Monocytes 9 % (2-10) 03/07/17 20:55 Eosinophils 1 % (0-5) 03/07/17 20:55 Basophils 0 % (0-3) 03/07/17 20:55 Platelet Estimate ADEQUATE (NORMAL) 03/07/17 20:55 Platelet Morphology NORMAL (NORMAL) 03/07/17 20:55 RBC Morph Micro Appear NORMAL (NORMAL) 03/07/17 20:55 Sodium 128 mEq/L (136-145) L 03/10/17 07:25 Potassium 4.2 mEq/L (3.5-5.1) 03/10/17 07:25 Chloride 99 mEq/L (98-107) 03/10/17 07:25 Carbon Dioxide 22.0 mEq/L (21.0-31.0) 03/10/17 07:25 Anion Gap 11.2 (7.0-16.0) 03/10/17 07:25 BUN 13 mg/dL (7-25) 03/10/17 07:25 Creatinine 0.6 mg/dL (0.6-1.2) 03/10/17 07:25 Est GFR ( Amer) TNP 03/10/17 07:25 Est GFR (Non-Af Amer) TNP 03/10/17 07:25 BUN/Creatinine Ratio 21.7 03/10/17 07:25 Glucose 94 mg/dL (70-105) 03/10/17 07:25 POC Glucose 123 MG/DL (70 - 105) H 03/08/17 00:24 Whole Bld Lactic Acid 0.75 mmol/L (0.60-1.99) 03/07/17 20:55 Uric Acid 3.7 mg/dL (2.3-6.6) 03/09/17 07:00 Calcium 9.0 mg/dL (8.6-10.3) 03/10/17 07:25 Total Bilirubin 0.6 mg/dL (0.3-1.0) 03/09/17 07:00 AST 46 U/L (13-39) H 03/09/17 07:00 ALT 21 U/L (7-52) 03/09/17 07:00 Alkaline Phosphatase 87 U/L (34-104) 03/09/17 07:00 Total Protein 7.9 gm/dL (6.0-8.3) 03/09/17 07:00 Albumin 4.4 gm/dL (3.7-5.3) 03/09/17 07:00 Globulin 3.5 gm/dL 03/09/17 07:00 Albumin/Globulin Ratio 1.3 (1.0-1.8) 03/09/17 07:00 TSH 1.54 uIU/ml (0.34-5.60) 03/09/17 07:00 Urine Source MIDSTREAM 03/09/17 06:08 Urine Color YELLOW 03/09/17 06:08 Urine Clarity CLEAR (CLEAR) 03/09/17 06:08 Urine pH 6.5 (4.6 - 8.0) 03/09/17 06:08 Ur Specific [place] 1.010 (1.005-1.030) 03/09/17 06:08 Urine Protein NEGATIVE mg/dL (NEGATIVE) 03/09/17 06:08 Urine Glucose (UA) NEGATIVE mg/dL (NEGATIVE) 03/09/17 06:08 Urine Ketones NEGATIVE mg/dL (NEGATIVE) 03/09/17 06:08 Urine Blood NEGATIVE (NEGATIVE) 03/09/17 06:08 Urine Nitrate NEGATIVE (NEGATIVE) 03/09/17 06:08 Urine Bilirubin NEGATIVE (NEGATIVE) 03/09/17 06:08 Urine Urobilinogen 0.2 E.U./dL (0.2 - 1.0) 03/09/17 06:08 Ur Leukocyte Esterase TRACE (NEGATIVE) H 03/09/17 06:08 Urine RBC 0-2 /hpf (0-5) 03/09/17 06:08 Urine WBC 2-5 /hpf (0-5) 03/09/17 06:08 Ur Epithelial Cells FEW /lpf (FEW) 03/09/17 06:08 Urine Bacteria 2+ /hpf (NONE SEEN) H 03/09/17 06:08 Ur Random Sodium 105 mmol/L 03/09/17 06:08 Influenza A (Rapid) NEG FOR INF A 03/07/17 22:45 Influenza B (Rapid) NEG FOR INF B 03/07/17 22:45 - Physical Exam Vitals and I&O: Vital Signs Temp 98.3 F 03/10/17 08:00 Pulse 90 03/10/17 10:02 Resp 20 03/10/17 08:00 BP 155/74 03/10/17 10:02 Pulse Ox 100 03/10/17 08:00 Intake & Output 03/09/17 03/10/17 03/10/17 18:59 06:59 18:59 Intake Total 250 965 720 Output Total 800 Balance 250 165 720 Weight (lbs) 62.188 kg 59.874 kg 59.874 kg Intake: Intake, IV Amount 765 Sodium Chloride 0.9% 1, 765 000 ml @ 75 mls/hr IV . [id number] [facility] Rx#:[id number] Oral 250 200 720 Output: Urine 800 Other: # Voids 2 3 # Bowel Movements 0 0 Active Medications: Current Medications Amlodipine Besylate (Norvasc) 5 mg PO DAILY [facility] Stop: 05/08/17 08:59 Last Admin: 03/10/17 10:02 Dose: 5 mg Aspirin (Aspirin) 325 mg PO DAILY [facility] Stop: 05/08/17 08:59 Last Admin: 03/10/17 10:00 Dose: 325 mg Cilostazol (Pletal) 100 mg PO BID [facility] Stop: 05/08/17 08:59 Last Admin: 03/10/17 10:01 Dose: 100 mg Cyanocobalamin (Vitamin B12) 1,000 mcg PO DAILY [facility] Stop: 05/08/17 08:59 Last Admin: 03/10/17 10:01 Dose: 1,000 mcg Docusate Sodium (Colace) 100 mg PO DAILY [facility] Stop: 05/08/17 08:59 Last Admin: 03/10/17 10:01 Dose: 100 mg Donepezil HCl (Aricept) 10 mg PO DAILY [facility] Stop: 05/08/17 08:59 Last Admin: 03/10/17 10:01 Dose: 10 mg Gabapentin (Neurontin) 300 mg PO TID [facility] Stop: 05/07/17 20:59 Last Admin: 03/10/17 13:21 Dose: 300 mg Sodium Chloride (Nacl 0.9%) 1,000 mls @ 75 mls/hr IV .[id number] [facility] Stop: 05/08/17 17:29 Last Admin: 03/10/17 06:50 Dose: 75 mls/hr Lisinopril (Zestril) 5 mg PO DAILY [facility] Stop: 05/08/17 08:59 Last Admin: 03/10/17 10:01 Dose: 5 mg Pantoprazole Sodium (Protonix) 40 mg PO DAILY [facility] Stop: 05/08/17 08:59 Last Admin: 03/10/17 10:02 Dose: 40 mg Risperidone (Risperdal) 0.5 mg PO [facility] PRN Reason: Protocol Stop: 05/07/17 20:59 Last Admin: 03/09/17 20:38 Dose: 0.5 mg Sodium Chloride (Nacl Tab) 1 gm PO BID [facility] Stop: 05/08/17 08:59 Last Admin: 03/10/17 10:01 Dose: 1 gm General: Alert, No acute distress HEENT: Atraumatic, PERRLA, Mucous membr. 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 COPD Ess Htn PAD Psych GERD Dementia Migraine GALEAS - Plan Plan: Lab - Result Diagrams 03/09/17 07:00 Lab - Result Diagrams 03/09/17 07:00 03/09/17 07:00 03/09/17 07:00 Current Medications Amlodipine Besylate (Norvasc) 5 mg PO DAILY [facility] Stop: 05/08/17 08:59 Last Admin: 03/09/17 09:01 Dose: 5 mg Aspirin (Aspirin) 325 mg PO DAILY [facility] Stop: 05/08/17 08:59 Last Admin: 03/09/17 09:01 Dose: 325 mg Cilostazol (Pletal) 100 mg PO BID [facility] Stop: 05/08/17 08:59 Last Admin: 03/09/17 16:51 Dose: 100 mg Cyanocobalamin (Vitamin B12) 1,000 mcg PO DAILY [facility] Stop: 05/08/17 08:59 Last Admin: 03/09/17 09:01 Dose: 1,000 mcg Docusate Sodium (Colace) 100 mg PO DAILY [facility] Stop: 05/08/17 08:59 Last Admin: 03/09/17 09:01 Dose: 100 mg Donepezil HCl (Aricept) 10 mg PO DAILY [facility] Stop: 05/08/17 08:59 Last Admin: 03/09/17 09:01 Dose: 10 mg Gabapentin (Neurontin) 300 mg PO TID [facility] Stop: 05/07/17 20:59 Last Admin: 03/09/17 13:42 Dose: 300 mg Sodium Chloride (Hypertonic 3%) 500 mls @ 20 mls/hr IV X1 ONE Stop: 03/09/17 18:59 Last Admin: 03/08/17 18:16 Dose: 20 mls/hr Lisinopril (Zestril) 5 mg PO DAILY [facility] Stop: 05/08/17 08:59 Last Admin: 03/09/17 09:02 Dose: 5 mg Pantoprazole Sodium (Protonix) 40 mg PO DAILY [facility] Stop: 05/08/17 08:59 Last Admin: 03/09/17 09:01 Dose: 40 mg Risperidone (Risperdal) 0.5 mg PO HS [facility] PRN Reason: Protocol Stop: 05/07/17 20:59 Last Admin: 03/08/17 20:45 Dose: 0.5 mg Sodium Chloride (Nacl Tab) 1 gm PO BID [facility] Stop: 05/08/17 08:59 Last Admin: 03/09/17 16:52 Dose: 1 Lab - Result Diagrams 03/09/17 07:00 03/10/17 07:25 Na up to 128 continue NS f/u electrolytes
--- NOTE | 2017-03-12 14:18 | Discharge Summary ---
DATE OF DISCHARGE: 03/10/2017 HISTORY AND HOSPITAL COURSE: This is a patient, very well known to me. The patient from [facility]. The patient was admitted on 03/07/2017 to [facility] and was discharged on 03/10/2017 and the patient was admitted initially for abnormal labs. The patient had hyponatremia, hypertension, and dementia, was treated. The patient improved and the patient was in stable condition. On 03/10/2017, was discharged back to [place]. I will follow the patient there. CONDITION AT THE TIME OF DISCHARGE: Stable. MEDICATIONS: See the reconciliation sheet. JOB# [id number]
== END 2017-03-10 20:05 | disposition home or self-care (01) | DRG 641 ==
LOC: ER 18:08 → MSI 23:30
PROVIDERS: ADMIT Internal Medicine; ATTEND Internal Medicine
DX: E87.1 Hypo-osmolality and hyponatremia (principal); F03.91 Unspecified dementia, unspecified severity, with behavioral disturbance; J44.9 Chronic obstructive pulmonary disease, unspecified; I10 Essential (primary) hypertension; K27.9 Peptic ulcer, site unspecified, unspecified as acute or chronic, without hemorrhage or perforation; K21.9 Gastro-esophageal reflux disease without esophagitis; F29 Unspecified psychosis not due to a substance or known physiological condition; G43.909 Migraine, unspecified, not intractable, without status migrainosus; F20.9 Schizophrenia, unspecified; I73.9 Peripheral vascular disease, unspecified; E87.6 Hypokalemia; H26.9 Unspecified cataract; Z79.82 Long term (current) use of aspirin; Z88.8 Allergy status to other drugs, medicaments and biological substances
CPT/HCPCS: 36415-UA; 71045-TC; 80048-TC; 80053-TC; 81001-TC; 82088-90; 82533-90; 82948-90; 83605; 83930-90; 84300-TC; 84443-TC; 84550-TC; 85007-TC; 85025-TC; 85027-TC; 87086-90; 87804-TC; 93005; J7030; J7042; J7131; Z7610

== ENCOUNTER 2017-03-14 18:13 | Inpatient (IN) | payer MEDICARE, MEDICAID ==
--- NOTE | 2017-03-14 18:24 | ED Physician Chart ---
ED Chief Complaint/HPI - Patient Information Date Seen:: 03/14/17 Time Seen:: 18:10 Chief Complaint:: Weakness History of Present Illness:: onset x 3 days of weakness, dizziness, and poor oral intake; no report of trauma , H/As, S/T, neck pain, C/P, SOB, Abd. Pain, A/N/v/D/c, fever, chills, or urinary s/s Allergies:: Allergies Allergy/AdvReac Type Severity Reaction Status Date / Time lovastatin Allergy Verified 03/07/17 18:40 Historian:: Patient, EMS Review:: Nurse's Note Reviewed, EMS run form Reviewed ED Review of Systems - Review of Systems General/Constitutional: Fever, No chills, No weight loss, Weakness, No diaphoresis, No edema, No loss of appetite Skin: No skin lesions, No rash, No bruising Head: No headache, No light-headedness Eyes: No loss of vision, No pain, No diplopia ENT: No earache, No nasal drainage, No sore throat, No tinnitus Neck: No neck pain, No swelling, No thyromegaly, No stiffness, No mass noted Cardio Vascular: No chest pain, No palpitations, No PND, No orthopnea, No edema Pulmonary: No SOB, Cough, No sputum, No wheezing GI: No nausea, No vomiting, No diarrhea, No pain, No melena, No hematochezia, No constipation, No hematemesis G/U: No dysuria, No frequency, No hematuria, No nacturia [employer] Finisher: No vaginal discharge, No abnormal vaginal bleed, No contraction Musculoskeletal: No bone or joint pain, No back pain, No muscle pain Endocrine: No polyuria, No polydipsia Psychiatric: No prior psych history, No depression, No anxiety, No suicidal ideation, No homicidal ideation, No auditory hallucination, No visual hallucination Hematopoietic: No bruising, No lymphadenopathy Allergic/Immuno: No urticaria, No angioedema Neurological: No syncope, No focal symptoms, Weakness, No paresthesia, No headache, No seizure, Dizziness, No confusion, Vertigo ED Past Medical History - Past Medical History Obtainable: Yes Past Medical History: HTN, Asthma/COPD, Dyslipidemia Family History: HTN Social History: Non Smoker, No Alcohol, No Drug Use, Single, Care Facility Surgical History: None Psychiatricy History: None Medication: Reviewed Family Medical History - Family Member Mother History Unknown: Yes ED Physical Exam - Physical Examination General/Constitutional: Awake, Well-developed, well-nourished, Alert, No distress, GCS 15, Non-toxic appearing, Ambulatory Head: Atraumatic Eyes: Lids, conjuctiva normal, PERRL, EOMI Skin: Nl inspection, No rash, No skin lesions, No ecchymosis, No lymphadenopathy Other Skin comments:: Poor Turgor with dry MM ENMT: External ears, nose nl, TM canals nl, Nasal exam nl, Lips, teeth, gums nl , Oropharynx nl, Tonsils nl Neck: Nontender, Full ROM w/o pain, No JVD, No nuchal rigidity, No bruit, No mass, No stridor Respiratory: Nl effort/Exclusion, Clear to Auscultation, No Wheeze/Rhonchi/Rales Cardio Vascular: RRR, No murmur, gallop, rubs, NL S1 S2, Carotid/Femoral/Distal pulses equal bilaterally GI: No tenderness/rebounding/guarding, No organomegaly, No hernia, Normal BS's, Nondistended, No mass/bruits, No McBurney tenderness : No CVA tenderness Extremities: No tenderness or effusion, Full ROM, normal strength in all extremities, No edema, Normal digits & nails Neuro/Psych: Alert/oriented, DTR's symmetric, Normal sensory exam, Normal motor strength, Judgement/insight normal, Mood normal, Normal gait, No focal deficits Misc: Normal back, No paraspinal tenderness ED Septic Shock - . Is Septic Shock (SBP<90, OR Lactate>4 mmol\L) present?: No ED Reassessment (Disposition) - Reassessment Reassessment Condition:: Improved - Diagnosis Diagnosis:: Poor Oral Intake; Dehydration; Weakness; Dizziness; COPD; - Aftercare/Follow up Instructions Aftercare/Follow-Up Instructions:: Counseled pt regarding lab results/diagnosis & need follow up, Counseled pt & family regarding lab results/diagnosis & need follow up - Patient Disposition Discharge/Transfer:: Acute Care w/in this hosp Accepting Physician:: Dr. Hernandez Time Called:: 081 Time Responded:: 18:40 Admitted to:: Telemetry Spoke to:: Dr. David Admitting Medical Physician:: Dr. Hernandez Condition at Disposition:: Stable, Improved
[2017-03-14] MEDS ORDERED: Sodium Chloride 0.9% 1,000 ML IV ONE (18:25)
[2017-03-14 18:44] LABS: HEMATOCRIT 35.7 % (41.0-60); HEMOGLOBIN 12.1 gm/dL (12-16); MEAN CELL VOLUME 88.3 fl (81-100); MEAN CORPUSCULAR HEMOGLOBIN 29.9 pg (27.0-31.0); MEAN CORPUSCULAR HGB CONC 33.9 pg (28.0-36.0); MEAN PLATELET VOLUME 5.8 fl; PLATELET COUNT 371 Th/cmm (150-400); RED BLOOD COUNT 4.04 Mil/cmm (3.80-5.20); RED CELL DISTRIBUTION WIDTH 12.7 % (11.5-20.0); WHITE BLOOD COUNT 4.7 Th/cmm (4.8-10.8)
[2017-03-14 18:58] LABS: INR 0.93 (0.5-1.4); PROTHROMBIN TIME (TEST) 9.7 SECONDS (9.5-11.5)
[2017-03-14 19:02] LABS: ALB/GLOB RATIO 1.4 (1.0-1.8); ALBUMIN 4.5 gm/dL (3.7-5.3); ALKALINE PHOSPHATASE 80 U/L (34-104); BILIRUBIN,TOTAL 0.7 mg/dL (0.3-1.0); BUN - UREA NITROGEN 6 mg/dL (7-25); CALCIUM SERUM 9.4 mg/dL (8.6-10.3); CARBON DIOXIDE 23.4 mEq/L (21.0-31.0); CHLORIDE 85 mEq/L (98-107); CHOLESTEROL 149 mg/dL (<200); CREATININE - SERUM 0.6 mg/dL (0.6-1.2); CREATININE KINASE 399 U/L (30-223); GLUCOSE 102 mg/dL (70-105); HDL -HIGH DENSITY LIPOPROTEIN 71 mg/dL (23-92); POTASSIUM SERUM 3.9 mEq/L (3.5-5.1); SGOT 51 U/L (13-39); SGPT/ALT 22 U/L (7-52); TOTAL PROTEIN,SERUM 7.7 gm/dL (6.0-8.3); TRIGLYCERIDES 37 mg/dL (<150)
[2017-03-14 19:03] LABS: AMYLASE SERUM 92 U/L (29-103); LIPASE 81 U/L (11-82)
[2017-03-14 19:07] LABS: URINE MICROSCOPIC INDICATED? YES; URINE SOURCE MIDSTREAM
[2017-03-14 19:14] LABS: URINE BILIRUBIN NEGATIVE (NEGATIVE); URINE BLOOD TRACE (NEGATIVE); URINE GLUCOSE (UA) 100 mg/dL (NEGATIVE); URINE KETONE NEGATIVE (NEGATIVE); URINE LEUKOCYTE ESTERASE NEGATIVE (NEGATIVE); URINE NITRATE NEGATIVE (NEGATIVE); URINE PROTEIN NEGATIVE (NEGATIVE); URINE UROBILINOGEN 0.2 E.U./dL (0.2 - 1.0)
[2017-03-14 19:32] LABS: ANION GAP 13.5 (7.0-16.0); SODIUM SERUM 118 mEq/L (136-145)
[2017-03-14 19:43] LABS: URINE CLARITY CLEAR (CLEAR); URINE COLOR YELLOW
[2017-03-14 20:03] LABS: URINE BACTERIA NONE SEEN /hpf (NONE SEEN); URINE EPITHELIAL CELLS NONE SEEN /lpf (FEW); URINE RBC 0-2 /hpf (0-5); URINE WBC NONE SEEN /hpf (0-5)
[2017-03-14 21:40] LABS: BAND NEUTROPHILE 0 % (0-10); LYMPHOCYTE 45 % (20-50); MONOCYTE 10 % (2-10); NEUTROPHILS 45 % (40-80); PLATELET ESTIMATE ADEQUATE (NORMAL); PLATELET MORPHOLOGY NORMAL (NORMAL); TOTAL CELLS COUNTED 100
[2017-03-14 22:13] VITALS: BP 161/77
[2017-03-14 23:04] LABS: CHOLESTEROL 146 mg/dL (<200); HDL -HIGH DENSITY LIPOPROTEIN 69 mg/dL (23-92); TRIGLYCERIDES 36 mg/dL (<150)
[2017-03-15 05:51] LABS: % BASOPHILS 0.3 % (0.0-2.0); % EOSINOPHILS 0.4 % (0.0-5.0); % LYMPHOCYTES 47.7 % (20.0-50.0); % MONOCYTES 14.6 % (2.0-10.0); HEMATOCRIT 35.3 % (41.0-60); HEMOGLOBIN 11.8 gm/dL (12-16); MEAN CELL VOLUME 89.2 fl (81-100); MEAN CORPUSCULAR HEMOGLOBIN 29.9 pg (27.0-31.0); MEAN CORPUSCULAR HGB CONC 33.5 pg (28.0-36.0); MONOCYTE ABSOLUTE 0.6 Th/cmm (0.3-1.0); NEUTROPHILE ABSOLUTE 1.5 Th/cmm (1.8-8.0); PLATELET COUNT 357 Th/cmm (150-400); RED BLOOD COUNT 3.96 Mil/cmm (3.80-5.20); RED CELL DISTRIBUTION WIDTH 12.6 % (11.5-20.0); WHITE BLOOD COUNT 4.1 Th/cmm (4.8-10.8)
[2017-03-15 06:04] LABS: ANION GAP 10.3 (7.0-16.0); BUN - UREA NITROGEN 3 mg/dL (7-25); CALCIUM SERUM 8.9 mg/dL (8.6-10.3); CARBON DIOXIDE 23.4 mEq/L (21.0-31.0); CHLORIDE 94 mEq/L (98-107); CREATININE - SERUM 0.5 mg/dL (0.6-1.2); GLUCOSE 90 mg/dL (70-105); POTASSIUM SERUM 3.7 mEq/L (3.5-5.1); SODIUM SERUM 124 mEq/L (136-145)
--- NOTE | 2017-03-15 08:22 | Diagnostic Imaging Report ---
CHEST X-RAY: AP view INDICATION: pain COMPARISON: 03/07/2017 FINDINGS: Chronic lung changes are noted with left basal subsegmental atelectasis versus scarring. No focal consolidation or effusions. Mild cardiomegaly is noted with atherosclerosis. Degenerative changes of the spine are noted. Postsurgical changes of the lumbar spine are partially visualized. IMPRESSION: Chronic lung changes with left basal subsegmental atelectasis versus scarring. No focal consolidation identified. Mild cardiomegaly with atherosclerosis.
[2017-03-15] MEDS ORDERED: Acetaminophen 500 MG TAB PO PRN (15:01)
[2017-03-15] MEDS ORDERED: Magnesium Hydroxide (MOM) 30 mL UDC PO PRN (15:01)
--- NOTE | 2017-03-15 21:19 | History and Physical ---
History of Present Illness - HPI Chief Complaint: weak, severe right arm pain with infected av shunt HPI: This is a 76 year old female who is admitted to the telemetry unit for weakness and right arm (av shunt) cellulitis. Vital Signs: Last Vital Signs Temp 98.4 F 03/15/17 20:00 Pulse 62 03/15/17 20:00 Resp 20 03/15/17 20:00 BP 137/68 03/15/17 20:00 Pulse Ox 98 03/15/17 20:00 Past Medical History Other History: HTN, Asthma/COPD, Dyslipidemia - Past Surgical History Past Surgical History: Other (av shunt) Family Medical History - Family Member Mother History Unknown: Yes Social History Smoke: No Alcohol: None Drugs: None Lives: With Family - Medications Home Medications: Home Medication Medication Instructions Recorded Type Acetaminophen [Tylenol Extra 500 mg PO Q4HR PRN 03/14/17 History Strength] Acetaminophen [Tylenol] 650 mg PO Q4HR PRN 03/14/17 History Clonidine HCl [Catapres] 0.1 mg PO Q6H PRN 03/14/17 History Cyanocobalamin [Vitamin B12] 1,000 mcg PO DAILY 03/14/17 History Docusate Sodium [Colace] 100 mg PO DAILY 03/14/17 History Donepezil Hcl [Aricept] 10 mg PO DAILY 03/14/17 History Gabapentin [Neurontin] 300 mg PO TID 03/14/17 History Magnesium Hydroxide [Milk of 30 ml PO HS PRN 03/14/17 History Magnesia] Pantoprazole [Protonix] 40 mg PO DAILY 03/14/17 History RX: Aspirin 325 mg PO DAILY 03/14/17 History RX: Cilostazol 100 mg PO BID 03/14/17 History RX: Lisinopril 5 mg PO DAILY 03/14/17 History RX: Sodium Chloride 1 gm PO BID 03/14/17 History amLODIPine Besylate [Norvasc] 5 mg PO DAILY 03/14/17 History risperiDONE [RisperDAL] 0.5 mg PO HS 03/14/17 History - Allergies Allergies/Adverse Reactions: Allergies Allergy/AdvReac Type Severity Reaction Status Date / Time lovastatin Allergy Verified 03/07/17 18:40 Review of Systems - Review of Systems Constitutional: Report: Weakness Eyes: Report: No Significant ENT: Report: No Significant Respiratory: Report: No Significant Cardiovascular: Report: No Significant Gastrointestinal: Report: No Significant Genitourinary: Report: No Significant Neurological: Report: Weakness Physical Exam - Physical Exam HEENT: Report: Ears Nose Throat within normal limits Neck: Report: Within normal limits Cardiovascular Systems: Report: +s1/s2 noted, Regular, Rate and Rhythm Respiratory: Report: Breath Sounds are within normal limits, Clear to Auscultation of lung brandon Abdomen: Report: Non-tender to palpation Extremities: Report: Non-tender to palpation. Skin: Report: Other (right arm redness) Neuro/Psych: Report: Mood affect is within normal limits - Lab Results All Lab Results last 24 hours: Laboratory Results - last 24 hr 03/15/17 03/15/17 03/15/17 05:20 05:20 05:20 WBC 4.1 L RBC 3.96 Hgb 11.8 L Hct 35.3 L MCV 89.2 MCH 29.9 MCHC Differential 33.5 RDW 12.6 Plt Count 357 MPV 6.0 Neutrophils % 37.0 L Lymphocytes % 47.7 Monocytes % 14.6 H Eosinophils % 0.4 Basophils % 0.3 Sodium 124 L Potassium 3.7 Chloride 94 L Carbon Dioxide 23.4 Anion Gap 10.3 BUN 3 L Creatinine 0.5 L Est GFR ( Amer) TNP Est GFR (Non-Af Amer) TNP BUN/Creatinine Ratio 6.0 Glucose 90 Calcium 8.9 TSH 0.67 - Assessment Assessment: right arm cellulitis HTN Asthma/COPD Dyslipidemia - Plan Plan: iv antibiotics id consult nephro consult follow up labs in am continue current plan of care
--- NOTE | 2017-03-16 03:31 | Consultation ---
DATE OF CONSULTATION: 03/15/2017 REFERRING PHYSICIAN: Dr. Hernandez. REASON FOR CONSULTATION: Generalized weakness. HISTORY OF PRESENT ILLNESS: The patient is a 76-year-old female with a past medical history of hypertension, asthma, COPD, dyslipidemia, brought into the ER for generalized weakness, dizziness, and poor oral intake. The patient denies any fever, chills, diarrhea, constipation or any urinary symptoms. The patient denies any cough or shortness of breath. On initial evaluation, the patient's temperature was 97.5 degree Fahrenheit and WBC count was 2700. The patient's sodium was 118. ID consult was called for further evaluation and management although the patient is alert, awake, and communicates well. PAST MEDICAL HISTORY: Includes hypertension, asthma, COPD, dyslipidemia. PAST SURGICAL HISTORY: None. FAMILY HISTORY: Hypertension. ALLERGIES: LOVASTATIN. MEDICATIONS: As per medication reconciliation sheet. ANTIBIOTICS: None. SOCIAL HISTORY: The patient lives at care facility, single. No history of smoking, alcohol, or drug use. REVIEW OF SYSTEMS: GENERAL: The patient has no fever, no chills. HEENT: No diplopia, no photophobia, no sore throat. RESPIRATORY: No cough. No shortness of breath. CARDIOVASCULAR: No chest pain or palpitations. GASTROINTESTINAL: No nausea, no vomiting, no diarrhea, no constipation. GENITOURINARY: No dysuria, no hematuria. NEUROLOGIC: Dizziness. No headache or focal weakness. The patient complains of generalized weakness. IMPRESSION: 1. Generalized weakness. 2. Dizziness. 3. Hyponatremia. 4. Dehydration. 5. Elevated creatinine. 6. Left acute kidney injury. RECOMMENDATIONS: We will do an ultrasound, urinalysis, and urine culture. Nephrology consultation. Thank you, Dr. Hernandez for involving me in taking care of this patient. JOB# [id number]
[2017-03-16] MEDS: Pantoprazole 40 mg EC Tab PO SCH (09:19)
--- NOTE | 2017-03-16 10:05 | General Progress Note ---
Subjective - Review of Systems Events since last encounter: generalized weakness with failure to thrive Objective - Results Result Diagrams: 03/15/17 05:20 03/15/17 05:20 Recent Labs: Laboratory Last Values WBC 4.1 Th/cmm (4.8-10.8) L 03/15/17 05:20 RBC 3.96 Mil/cmm (3.80-5.20) 03/15/17 05:20 Hgb 11.8 gm/dL (12-16) L 03/15/17 05:20 Hct 35.3 % (41.0-60) L 03/15/17 05:20 MCV 89.2 fl (81-100) 03/15/17 05:20 MCH 29.9 pg (27.0-31.0) 03/15/17 05:20 MCHC Differential 33.5 pg (28.0-36.0) 03/15/17 05:20 RDW 12.6 % (11.5-20.0) 03/15/17 05:20 Plt Count 357 Th/cmm (150-400) 03/15/17 05:20 MPV 6.0 fl 03/15/17 05:20 Neutrophils % 37.0 % (40.0-80.0) L 03/15/17 05:20 Band Neutrophils % 0 % (0-10) 03/14/17 18:30 Lymphocytes % 47.7 % (20.0-50.0) 03/15/17 05:20 Monocytes % 14.6 % (2.0-10.0) H 03/15/17 05:20 Eosinophils % 0.4 % (0.0-5.0) 03/15/17 05:20 Basophils % 0.3 % (0.0-2.0) 03/15/17 05:20 Neutrophils (Manual) 45 % (40-80) 03/14/17 18:30 Lymphocytes 45 % (20-50) 03/14/17 18:30 Monocytes 10 % (2-10) 03/14/17 18:30 Platelet Estimate ADEQUATE (NORMAL) 03/14/17 18:30 Platelet Morphology NORMAL (NORMAL) 03/14/17 18:30 RBC Morph Micro Appear NORMAL (NORMAL) 03/14/17 18:30 PT 9.7 SECONDS (9.5-11.5) 03/14/17 18:30 INR 0.93 (0.5-1.4) 03/14/17 18:30 PTT (Actin FS) 25.1 SECONDS (26.0-38.0) L 03/14/17 18:30 Sodium 124 mEq/L (136-145) L 03/15/17 05:20 Potassium 3.7 mEq/L (3.5-5.1) 03/15/17 05:20 Chloride 94 mEq/L (98-107) L 03/15/17 05:20 Carbon Dioxide 23.4 mEq/L (21.0-31.0) 03/15/17 05:20 Anion Gap 10.3 (7.0-16.0) 03/15/17 05:20 BUN 3 mg/dL (7-25) L 03/15/17 05:20 Creatinine 0.5 mg/dL (0.6-1.2) L 03/15/17 05:20 Est GFR ( Amer) TNP 03/15/17 05:20 Est GFR (Non-Af Amer) TNP 03/15/17 05:20 BUN/Creatinine Ratio 6.0 03/15/17 05:20 Glucose 90 mg/dL (70-105) 03/15/17 05:20 Whole Bld Lactic Acid 0.73 mmol/L (0.60-1.99) 03/14/17 18:30 Calcium 8.9 mg/dL (8.6-10.3) 03/15/17 05:20 Total Bilirubin 0.7 mg/dL (0.3-1.0) 03/14/17 18:30 AST 51 U/L (13-39) H 03/14/17 18:30 ALT 22 U/L (7-52) 03/14/17 18:30 Alkaline Phosphatase 80 U/L (34-104) 03/14/17 18:30 Creatine Kinase 399 U/L (30-223) H 03/14/17 18:30 CK-MB (CK-2) 7.8 ng/mL (0.6-6.3) H 03/14/17 18:30 Troponin I 0.01 ng/mL (0.01-0.05) 03/14/17 18:30 B-Natriuretic Peptide 27.7 pg/mL (5.0-100.0) 03/14/17 18:30 Total Protein 7.7 gm/dL (6.0-8.3) 03/14/17 18:30 Albumin 4.5 gm/dL (3.7-5.3) 03/14/17 18:30 Globulin 3.2 gm/dL 03/14/17 18:30 Albumin/Globulin Ratio 1.4 (1.0-1.8) 03/14/17 18:30 Triglycerides 36 mg/dL (<150) 03/14/17 18:30 Cholesterol 146 mg/dL (<200) 03/14/17 18:30 LDL Cholesterol Direct 64 mg/dL (75-193) L 03/14/17 18:30 HDL Cholesterol 69 mg/dL (23-92) 03/14/17 18:30 Amylase 92 U/L (29-103) 03/14/17 18:30 Lipase 81 U/L (11-82) 03/14/17 18:30 TSH 0.67 uIU/ml (0.34-5.60) 03/15/17 05:20 Urine Source MIDSTREAM 03/14/17 18:15 Urine Color YELLOW 03/14/17 18:15 Urine Clarity CLEAR (CLEAR) 03/14/17 18:15 Urine pH 7.0 (4.6 - 8.0) 03/14/17 18:15 Ur Specific [place] <= 1.005 (1.005-1.030) 03/14/17 18:15 Urine Protein NEGATIVE mg/dL (NEGATIVE) 03/14/17 18:15 Urine Glucose (UA) 100 mg/dL (NEGATIVE) H 03/14/17 18:15 Urine Ketones NEGATIVE mg/dL (NEGATIVE) 03/14/17 18:15 Urine Blood TRACE (NEGATIVE) 03/14/17 18:15 Urine Nitrate NEGATIVE (NEGATIVE) 03/14/17 18:15 Urine Bilirubin NEGATIVE (NEGATIVE) 03/14/17 18:15 Urine Urobilinogen 0.2 E.U./dL (0.2 - 1.0) 03/14/17 18:15 Ur Leukocyte Esterase NEGATIVE (NEGATIVE) 03/14/17 18:15 Urine RBC 0-2 /hpf (0-5) 03/14/17 18:15 Urine WBC NONE SEEN /hpf (0-5) 03/14/17 18:15 Ur Epithelial Cells NONE SEEN /lpf (FEW) 03/14/17 18:15 Urine Bacteria NONE SEEN /hpf (NONE SEEN) 03/14/17 18:15 - Physical Exam Vitals and I&O: Vital Signs Temp 98.4 F 03/16/17 08:00 Pulse 64 03/16/17 09:20 Resp 18 03/16/17 08:00 BP 155/80 03/16/17 09:20 Pulse Ox 99 03/16/17 08:00 Intake & Output 03/15/17 03/16/17 03/16/17 18:59 06:59 18:59 Intake Total 800 150 Balance 800 150 Weight (lbs) 55.338 kg 56.472 kg Intake: Oral 800 150 Tube Feeding 0 Other: # Voids 5 3 # Bowel Movements 0 0 Active Medications: Current Medications Acetaminophen (Tylenol) 650 mg PO Q4HR PRN PRN Reason: Moderate Pain or Fever >101F Stop: 05/14/17 15:00 Last Admin: 03/15/17 15:39 Dose: 650 mg Acetaminophen (Tylenol Extra Strength) 500 mg PO Q4HR PRN PRN Reason: Pain (MILD) Stop: 05/14/17 15:00 Amlodipine Besylate (Norvasc) 5 mg PO DAILY [facility] Stop: 05/15/17 08:59 Last Admin: 03/16/17 09:19 Dose: 5 mg Aspirin (Aspirin) 325 mg PO DAILY [facility] Stop: 05/15/17 08:59 Last Admin: 03/16/17 09:19 Dose: 325 mg Cilostazol (Pletal) 100 mg PO BID [facility] Stop: 05/14/17 16:59 Last Admin: 03/16/17 09:19 Dose: 100 mg Cyanocobalamin (Vitamin B12) 1,000 mcg PO DAILY [facility] Stop: 05/15/17 08:59 Last Admin: 03/16/17 09:19 Dose: 1,000 mcg Docusate Sodium (Colace) 100 mg PO DAILY [facility] Stop: 05/15/17 08:59 Last Admin: 03/16/17 09:19 Dose: 100 mg Donepezil HCl (Aricept) 10 mg PO DAILY [facility] Stop: 05/15/17 08:59 Last Admin: 03/16/17 09:19 Dose: 10 mg Gabapentin (Neurontin) 300 mg PO TID [facility] Stop: 05/14/17 20:59 Last Admin: 03/16/17 09:20 Dose: 300 mg Lisinopril (Zestril) 5 mg PO DAILY [facility] Stop: 05/15/17 08:59 Last Admin: 03/16/17 09:20 Dose: 5 mg Magnesium Hydroxide (Milk Of Magnesia) 30 ml PO HS PRN PRN Reason: Constipation Stop: 05/14/17 15:00 Pantoprazole Sodium (Protonix) 40 mg PO DAILY [facility] Stop: 05/15/17 08:59 Last Admin: 03/16/17 09:19 Dose: 40 mg Risperidone (Risperdal) 0.5 mg PO HS [facility] PRN Reason: Protocol Stop: 05/14/17 20:59 Sodium Chloride (Nacl Tab) 1 gm PO BID [facility] Stop: 05/14/17 16:59 Last Admin: 03/16/17 09:20 Dose: 1 gm General: No acute distress HEENT: Atraumatic Neck: Supple, JVD Cardiovascular: Regular rate, Normal S1, Normal S2 Abdomen: Bowel sounds Assessment/Plan - Problem List Patient Problems: All Active Problems Asthma (Acute) J45.909 COPD (chronic obstructive pulmonary disease) (Acute) Dyslipidemia (Acute) E78.5 Failure to thrive (Acute) [id number] HTN (hypertension) (Acute) I10 Right arm cellulitis (Acute) L03.113 - Plan Plan: continue present management
[2017-03-17 02:04] LABS: URINE MICROSCOPIC INDICATED? YES; URINE SOURCE MIDSTREAM
[2017-03-17 02:12] LABS: URINE BILIRUBIN NEGATIVE (NEGATIVE); URINE BLOOD NEGATIVE (NEGATIVE); URINE GLUCOSE (UA) NEGATIVE (NEGATIVE); URINE KETONE NEGATIVE (NEGATIVE); URINE LEUKOCYTE ESTERASE NEGATIVE (NEGATIVE); URINE NITRATE NEGATIVE (NEGATIVE); URINE PROTEIN NEGATIVE (NEGATIVE); URINE UROBILINOGEN 0.2 E.U./dL (0.2 - 1.0)
[2017-03-17 02:13] LABS: URINE BACTERIA FEW /hpf (NONE SEEN); URINE CLARITY CLEAR (CLEAR); URINE COLOR YELLOW; URINE EPITHELIAL CELLS FEW /lpf (FEW); URINE RBC 0-2 /hpf (0-5); URINE WBC 0-2 /hpf (0-5)
[2017-03-17 06:37] LABS: % BASOPHILS 1.3 % (0.0-2.0); % EOSINOPHILS 0.7 % (0.0-5.0); % LYMPHOCYTES 50.8 % (20.0-50.0); % MONOCYTES 14.8 % (2.0-10.0); % NEUTROPHILS 32.4 % (40.0-80.0); BASOPHILE ABSOLUTE 0.1 Th/cumm (0-0.2); HEMATOCRIT 32.7 % (41.0-60); HEMOGLOBIN 10.9 gm/dL (12-16); LYMPHOCYTE ABSOLUTE 2.2 Th/cmm (1.5-3.0); MEAN CELL VOLUME 89.5 fl (81-100); MEAN CORPUSCULAR HEMOGLOBIN 29.9 pg (27.0-31.0); MEAN CORPUSCULAR HGB CONC 33.4 pg (28.0-36.0); MONOCYTE ABSOLUTE 0.7 Th/cmm (0.3-1.0); NEUTROPHILE ABSOLUTE 1.5 Th/cmm (1.8-8.0); PLATELET COUNT 336 Th/cmm (150-400); RED BLOOD COUNT 3.66 Mil/cmm (3.80-5.20); WHITE BLOOD COUNT 4.5 Th/cmm (4.8-10.8)
[2017-03-17 06:52] LABS: ANION GAP 11.3 (7.0-16.0); BUN - UREA NITROGEN 8 mg/dL (7-25); CALCIUM SERUM 8.4 mg/dL (8.6-10.3); CARBON DIOXIDE 20.6 mEq/L (21.0-31.0); CHLORIDE 93 mEq/L (98-107); CREATININE - SERUM 0.6 mg/dL (0.6-1.2); GLUCOSE 122 mg/dL (70-105); POTASSIUM SERUM 3.9 mEq/L (3.5-5.1); SODIUM SERUM 121 mEq/L (136-145)
--- NOTE | 2017-03-17 08:28 | General Progress Note ---
Subjective - Review of Systems Events since last encounter: awake in no acute distress Objective - Results Result Diagrams: 03/17/17 06:06 03/17/17 06:06 Recent Labs: Laboratory Last Values WBC 4.5 Th/cmm (4.8-10.8) L 03/17/17 06:06 RBC 3.66 Mil/cmm (3.80-5.20) L 03/17/17 06:06 Hgb 10.9 gm/dL (12-16) L 03/17/17 06:06 Hct 32.7 % (41.0-60) L 03/17/17 06:06 MCV 89.5 fl (81-100) 03/17/17 06:06 MCH 29.9 pg (27.0-31.0) 03/17/17 06:06 MCHC Differential 33.4 pg (28.0-36.0) 03/17/17 06:06 RDW 13.0 % (11.5-20.0) 03/17/17 06:06 Plt Count 336 Th/cmm (150-400) 03/17/17 06:06 MPV 6.0 fl 03/17/17 06:06 Neutrophils % 32.4 % (40.0-80.0) L 03/17/17 06:06 Band Neutrophils % 0 % (0-10) 03/14/17 18:30 Lymphocytes % 50.8 % (20.0-50.0) H 03/17/17 06:06 Monocytes % 14.8 % (2.0-10.0) H 03/17/17 06:06 Eosinophils % 0.7 % (0.0-5.0) 03/17/17 06:06 Basophils % 1.3 % (0.0-2.0) 03/17/17 06:06 Neutrophils (Manual) 45 % (40-80) 03/14/17 18:30 Lymphocytes 45 % (20-50) 03/14/17 18:30 Monocytes 10 % (2-10) 03/14/17 18:30 Platelet Estimate ADEQUATE (NORMAL) 03/14/17 18:30 Platelet Morphology NORMAL (NORMAL) 03/14/17 18:30 RBC Morph Micro Appear NORMAL (NORMAL) 03/14/17 18:30 PT 9.7 SECONDS (9.5-11.5) 03/14/17 18:30 INR 0.93 (0.5-1.4) 03/14/17 18:30 PTT (Actin FS) 25.1 SECONDS (26.0-38.0) L 03/14/17 18:30 Sodium 121 mEq/L (136-145) L 03/17/17 06:06 Potassium 3.9 mEq/L (3.5-5.1) 03/17/17 06:06 Chloride 93 mEq/L (98-107) L 03/17/17 06:06 Carbon Dioxide 20.6 mEq/L (21.0-31.0) L 03/17/17 06:06 Anion Gap 11.3 (7.0-16.0) 03/17/17 06:06 BUN 8 mg/dL (7-25) 03/17/17 06:06 Creatinine 0.6 mg/dL (0.6-1.2) 03/17/17 06:06 Est GFR ( Amer) TNP 03/17/17 06:06 Est GFR (Non-Af Amer) TNP 03/17/17 06:06 BUN/Creatinine Ratio 13.3 03/17/17 06:06 Glucose 122 mg/dL (70-105) H 03/17/17 06:06 Whole Bld Lactic Acid 0.73 mmol/L (0.60-1.99) 03/14/17 18:30 Calcium 8.4 mg/dL (8.6-10.3) L 03/17/17 06:06 Total Bilirubin 0.7 mg/dL (0.3-1.0) 03/14/17 18:30 AST 51 U/L (13-39) H 03/14/17 18:30 ALT 22 U/L (7-52) 03/14/17 18:30 Alkaline Phosphatase 80 U/L (34-104) 03/14/17 18:30 Creatine Kinase 399 U/L (30-223) H 03/14/17 18:30 CK-MB (CK-2) 7.8 ng/mL (0.6-6.3) H 03/14/17 18:30 Troponin I 0.01 ng/mL (0.01-0.05) 03/14/17 18:30 B-Natriuretic Peptide 27.7 pg/mL (5.0-100.0) 03/14/17 18:30 Total Protein 7.7 gm/dL (6.0-8.3) 03/14/17 18:30 Albumin 4.5 gm/dL (3.7-5.3) 03/14/17 18:30 Globulin 3.2 gm/dL 03/14/17 18:30 Albumin/Globulin Ratio 1.4 (1.0-1.8) 03/14/17 18:30 Triglycerides 36 mg/dL (<150) 03/14/17 18:30 Cholesterol 146 mg/dL (<200) 03/14/17 18:30 LDL Cholesterol Direct 64 mg/dL (75-193) L 03/14/17 18:30 HDL Cholesterol 69 mg/dL (23-92) 03/14/17 18:30 Amylase 92 U/L (29-103) 03/14/17 18:30 Lipase 81 U/L (11-82) 03/14/17 18:30 TSH 0.67 uIU/ml (0.34-5.60) 03/15/17 05:20 Urine Source MIDSTREAM 03/17/17 01:50 Urine Color YELLOW 03/17/17 01:50 Urine Clarity CLEAR (CLEAR) 03/17/17 01:50 Urine pH 6.0 (4.6 - 8.0) 03/17/17 01:50 Ur Specific [place] <= 1.005 (1.005-1.030) 03/17/17 01:50 Urine Protein NEGATIVE mg/dL (NEGATIVE) 03/17/17 01:50 Urine Glucose (UA) NEGATIVE mg/dL (NEGATIVE) 03/17/17 01:50 Urine Ketones NEGATIVE mg/dL (NEGATIVE) 03/17/17 01:50 Urine Blood NEGATIVE (NEGATIVE) 03/17/17 01:50 Urine Nitrate NEGATIVE (NEGATIVE) 03/17/17 01:50 Urine Bilirubin NEGATIVE (NEGATIVE) 03/17/17 01:50 Urine Urobilinogen 0.2 E.U./dL (0.2 - 1.0) 03/17/17 01:50 Ur Leukocyte Esterase NEGATIVE (NEGATIVE) 03/17/17 01:50 Urine RBC 0-2 /hpf (0-5) 03/17/17 01:50 Urine WBC 0-2 /hpf (0-5) 03/17/17 01:50 Ur Epithelial Cells FEW /lpf (FEW) 03/17/17 01:50 Urine Bacteria FEW /hpf (NONE SEEN) 03/17/17 01:50 - Physical Exam Vitals and I&O: Vital Signs Temp 97.0 F 03/17/17 07:54 Pulse 58 03/17/17 07:54 Resp 17 03/17/17 07:54 BP 151/73 03/17/17 07:54 Pulse Ox 99 03/17/17 07:54 Intake & Output 03/16/17 03/17/17 03/17/17 18:59 06:59 18:59 Intake Total 800 800 Output Total 0 Balance 800 800 Weight (lbs) 56.472 kg 56.245 kg Intake: Oral 800 800 Output: Stool 0 Other: # Voids 3 3 # Bowel Movements 1 0 Active Medications: Current Medications Acetaminophen (Tylenol) 650 mg PO Q4HR PRN PRN Reason: Moderate Pain or Fever >101F Stop: 05/14/17 15:00 Last Admin: 03/15/17 15:39 Dose: 650 mg Acetaminophen (Tylenol Extra Strength) 500 mg PO Q4HR PRN PRN Reason: Pain (MILD) Stop: 05/14/17 15:00 Amlodipine Besylate (Norvasc) 5 mg PO DAILY [facility] Stop: 05/15/17 08:59 Last Admin: 03/16/17 09:19 Dose: 5 mg Aspirin (Aspirin) 325 mg PO DAILY [facility] Stop: 05/15/17 08:59 Last Admin: 03/16/17 09:19 Dose: 325 mg Cilostazol (Pletal) 100 mg PO BID [facility] Stop: 05/14/17 16:59 Last Admin: 03/16/17 16:53 Dose: 100 mg Cyanocobalamin (Vitamin B12) 1,000 mcg PO DAILY [facility] Stop: 05/15/17 08:59 Last Admin: 03/16/17 09:19 Dose: 1,000 mcg Docusate Sodium (Colace) 100 mg PO DAILY [facility] Stop: 05/15/17 08:59 Last Admin: 03/16/17 09:19 Dose: 100 mg Donepezil HCl (Aricept) 10 mg PO DAILY [facility] Stop: 05/15/17 08:59 Last Admin: 03/16/17 09:19 Dose: 10 mg Gabapentin (Neurontin) 300 mg PO TID [facility] Stop: 05/14/17 20:59 Last Admin: 03/16/17 20:43 Dose: 300 mg Lisinopril (Zestril) 5 mg PO DAILY [facility] Stop: 05/15/17 08:59 Last Admin: 03/16/17 09:20 Dose: 5 mg Magnesium Hydroxide (Milk Of Magnesia) 30 ml PO HS PRN PRN Reason: Constipation Stop: 05/14/17 15:00 Pantoprazole Sodium (Protonix) 40 mg PO DAILY [facility] Stop: 05/15/17 08:59 Last Admin: 03/16/17 09:19 Dose: 40 mg Risperidone (Risperdal) 0.5 mg PO HS [facility] PRN Reason: Protocol Stop: 05/14/17 20:59 Last Admin: 03/16/17 20:43 Dose: 0.5 mg Sodium Chloride (Nacl Tab) 1 gm PO BID [facility] Stop: 05/14/17 16:59 Last Admin: 03/16/17 16:52 Dose: 1 gm General: No acute distress HEENT: Atraumatic Neck: Supple, JVD Cardiovascular: Regular rate, Normal S1, Normal S2 Abdomen: Bowel sounds Assessment/Plan - Problem List Patient Problems: All Active Problems Asthma (Acute) J45.909 COPD (chronic obstructive pulmonary disease) (Acute) Dyslipidemia (Acute) E78.5 Failure to thrive (Acute) [id number] HTN (hypertension) (Acute) I10 Right arm cellulitis (Acute) L03.113 - Plan Plan: continue present management Nutritional Asmnt/Malnutr-PDOC - Dietary Evaluation Malnutrition Findings (Please click <Entered> for more info): Nutritional Asmnt/Malnutrition Start: 03/16/17 17: 03 Text: Status: Complete Freq: Document 03/16/17 17:03 [email or web address] (Rec: 03/16/17 17:08 [id number]) Nutritional Asmnt/Malnutrition Patient General Information Nutritional Screening High Risk Consult Diagnosis generlized weakness, po9or oral intake Pertinent Medical Hx/Surgical Hx HTN, asthma/COPD, dyslipidemia , AV shunt Subjective Information Consult received for poor vahe intake. Pt seen sleeping at time of visit, lunch tray at on table. RN reported pt did not want to eat, wanted go back to her facility. Per records, 25% of breakfast and lunch, 0% of dinner on 03/15. Current Diet Order/ Nutrition Support Cardiac Pertinent Medications vitamin B12, colace, protonix, nacl tab Pertinent Labs 03/15 Na 124, K 3.7, Cl 94, BUN 3, Cr 0.5, Glucose 90, Ca 8.9 Nutritional Hx/Data Height 1.65 m Height (Calculated Centimeters) 165.1 Current Weight (lbs) 56.472 kg Weight (Calculated Kilograms) 56.5 Weight (Calculated Grams) 17959.3 [place] Body Weight 125 % [place] Body Weight 100 Body Mass Index (BMI) 20.7 Weight Status Approriate GI Symptoms GI Symptoms None Last BM none Difficult in: None Skin Integrity/Comment: yesenia enamorado 19 Estimated Nutritional Goals BEE in Kcals: Using Current wt Calories/Kcals/Kg 25-30 Kcals Calculated 6588-3354 Protein: Using Current wt Protein g/k Protein Calculated 57 Fluid: ml 1425-1710ml (1ml/kcal) Nutritional Problem 1. Problem Problem inadequate food intake Etiology poor appetite Signs/Symptoms: PO intake 0-25% Malnutrition Alert Protein-Calorie Malnutrition N/A Is there a minimum of two criteria No selected? Query Text:Check all the applicable criteria. A minimum of two criteria are recommended for diagnosis of either severe or non-severe malnutrition. Intervention/Recommendation Comments 1. Continue with current diet as ordered. Assist pt with meals as needed. If PO intake continue low, consider Boost BID to supplement intake. 2. Monitor PO intake, wt, labs and skin integrity 3. F/U as high risk in 2-3 days, 2/2-2/3 Expected Outcomes/Goals Expected Outcomes/Goals 1. PO intake to meet at least 75% of nutritional needs. 2. Wt stability, skin to remain intact, labs to approach WNL.
--- NOTE | 2017-03-17 10:49 | Diagnostic Imaging Report ---
Renal ultrasound HISTORY: Pyelonephritis The right kidney measures 11.8 x 6 point x 6.8 cm. Multiple sonolucent lesions consistent with cysts are seen throughout the kidney. The largest measures approximately 3.6 cm. No hydronephrosis. The left kidney measures 9.7 x 6.0 x 6.2 cm. 2 cysts noted in the upper pole. The largest measures approximately 2.4 cm. No hydronephrosis. The urinary bladder cannot be evaluated due to lack of distention. IMPRESSION: 1. Findings consistent with bilateral renal cysts
[2017-03-17] MEDS: Pantoprazole 40 mg EC Tab PO SCH (11:00)
--- NOTE | 2017-03-17 13:42 | Internal Medicine Prog Note ---
Internal Medicine Subjective - Subjective Service Date: 03/17/17 Patient seen and examined:: with staff Patient is:: awake Per staff patient has:: no adverse event Internal Medicine Objective - Results Result Diagrams: 03/17/17 06:06 03/17/17 06:06 Recent Labs: Laboratory Last Values WBC 4.5 Th/cmm (4.8-10.8) L 03/17/17 06:06 RBC 3.66 Mil/cmm (3.80-5.20) L 03/17/17 06:06 Hgb 10.9 gm/dL (12-16) L 03/17/17 06:06 Hct 32.7 % (41.0-60) L 03/17/17 06:06 MCV 89.5 fl (81-100) 03/17/17 06:06 MCH 29.9 pg (27.0-31.0) 03/17/17 06:06 MCHC Differential 33.4 pg (28.0-36.0) 03/17/17 06:06 RDW 13.0 % (11.5-20.0) 03/17/17 06:06 Plt Count 336 Th/cmm (150-400) 03/17/17 06:06 MPV 6.0 fl 03/17/17 06:06 Neutrophils % 32.4 % (40.0-80.0) L 03/17/17 06:06 Band Neutrophils % 0 % (0-10) 03/14/17 18:30 Lymphocytes % 50.8 % (20.0-50.0) H 03/17/17 06:06 Monocytes % 14.8 % (2.0-10.0) H 03/17/17 06:06 Eosinophils % 0.7 % (0.0-5.0) 03/17/17 06:06 Basophils % 1.3 % (0.0-2.0) 03/17/17 06:06 Neutrophils (Manual) 45 % (40-80) 03/14/17 18:30 Lymphocytes 45 % (20-50) 03/14/17 18:30 Monocytes 10 % (2-10) 03/14/17 18:30 Platelet Estimate ADEQUATE (NORMAL) 03/14/17 18:30 Platelet Morphology NORMAL (NORMAL) 03/14/17 18:30 RBC Morph Micro Appear NORMAL (NORMAL) 03/14/17 18:30 PT 9.7 SECONDS (9.5-11.5) 03/14/17 18:30 INR 0.93 (0.5-1.4) 03/14/17 18:30 PTT (Actin FS) 25.1 SECONDS (26.0-38.0) L 03/14/17 18:30 Sodium 121 mEq/L (136-145) L 03/17/17 06:06 Potassium 3.9 mEq/L (3.5-5.1) 03/17/17 06:06 Chloride 93 mEq/L (98-107) L 03/17/17 06:06 Carbon Dioxide 20.6 mEq/L (21.0-31.0) L 03/17/17 06:06 Anion Gap 11.3 (7.0-16.0) 03/17/17 06:06 BUN 8 mg/dL (7-25) 03/17/17 06:06 Creatinine 0.6 mg/dL (0.6-1.2) 03/17/17 06:06 Est GFR ( Amer) TNP 03/17/17 06:06 Est GFR (Non-Af Amer) TNP 03/17/17 06:06 BUN/Creatinine Ratio 13.3 03/17/17 06:06 Glucose 122 mg/dL (70-105) H 03/17/17 06:06 Whole Bld Lactic Acid 0.73 mmol/L (0.60-1.99) 03/14/17 18:30 Calcium 8.4 mg/dL (8.6-10.3) L 03/17/17 06:06 Total Bilirubin 0.7 mg/dL (0.3-1.0) 03/14/17 18:30 AST 51 U/L (13-39) H 03/14/17 18:30 ALT 22 U/L (7-52) 03/14/17 18:30 Alkaline Phosphatase 80 U/L (34-104) 03/14/17 18:30 Creatine Kinase 399 U/L (30-223) H 03/14/17 18:30 CK-MB (CK-2) 7.8 ng/mL (0.6-6.3) H 03/14/17 18:30 Troponin I 0.01 ng/mL (0.01-0.05) 03/14/17 18:30 B-Natriuretic Peptide 27.7 pg/mL (5.0-100.0) 03/14/17 18:30 Total Protein 7.7 gm/dL (6.0-8.3) 03/14/17 18:30 Albumin 4.5 gm/dL (3.7-5.3) 03/14/17 18:30 Globulin 3.2 gm/dL 03/14/17 18:30 Albumin/Globulin Ratio 1.4 (1.0-1.8) 03/14/17 18:30 Triglycerides 36 mg/dL (<150) 03/14/17 18:30 Cholesterol 146 mg/dL (<200) 03/14/17 18:30 LDL Cholesterol Direct 64 mg/dL (75-193) L 03/14/17 18:30 HDL Cholesterol 69 mg/dL (23-92) 03/14/17 18:30 Amylase 92 U/L (29-103) 03/14/17 18:30 Lipase 81 U/L (11-82) 03/14/17 18:30 TSH 0.67 uIU/ml (0.34-5.60) 03/15/17 05:20 Urine Source MIDSTREAM 03/17/17 01:50 Urine Color YELLOW 03/17/17 01:50 Urine Clarity CLEAR (CLEAR) 03/17/17 01:50 Urine pH 6.0 (4.6 - 8.0) 03/17/17 01:50 Ur Specific [place] <= 1.005 (1.005-1.030) 03/17/17 01:50 Urine Protein NEGATIVE mg/dL (NEGATIVE) 03/17/17 01:50 Urine Glucose (UA) NEGATIVE mg/dL (NEGATIVE) 03/17/17 01:50 Urine Ketones NEGATIVE mg/dL (NEGATIVE) 03/17/17 01:50 Urine Blood NEGATIVE (NEGATIVE) 03/17/17 01:50 Urine Nitrate NEGATIVE (NEGATIVE) 03/17/17 01:50 Urine Bilirubin NEGATIVE (NEGATIVE) 03/17/17 01:50 Urine Urobilinogen 0.2 E.U./dL (0.2 - 1.0) 03/17/17 01:50 Ur Leukocyte Esterase NEGATIVE (NEGATIVE) 03/17/17 01:50 Urine RBC 0-2 /hpf (0-5) 03/17/17 01:50 Urine WBC 0-2 /hpf (0-5) 03/17/17 01:50 Ur Epithelial Cells FEW /lpf (FEW) 03/17/17 01:50 Urine Bacteria FEW /hpf (NONE SEEN) 03/17/17 01:50 - Physical Exam Vitals and I&O: Vital Signs Temp 97.4 F 03/17/17 11:34 Pulse 68 03/17/17 11:34 Resp 18 03/17/17 11:34 BP 142/66 03/17/17 11:34 Pulse Ox 98 03/17/17 11:34 Intake & Output 03/16/17 03/17/17 03/17/17 18:59 06:59 18:59 Intake Total 800 800 Output Total 0 0 Balance 800 800 0 Weight (lbs) 124 lb 8 oz 124 lb 124 lb Intake: Oral 800 800 Output: Stool 0 0 Other: # Voids 3 3 2 # Bowel Movements 1 0 0 Active Medications: Current Medications Acetaminophen (Tylenol) 650 mg PO Q4HR PRN PRN Reason: Moderate Pain or Fever >101F Stop: 05/14/17 15:00 Last Admin: 03/15/17 15:39 Dose: 650 mg Acetaminophen (Tylenol Extra Strength) 500 mg PO Q4HR PRN PRN Reason: Pain (MILD) Stop: 05/14/17 15:00 Amlodipine Besylate (Norvasc) 5 mg PO DAILY [facility] Stop: 05/15/17 08:59 Last Admin: 03/17/17 11:00 Dose: 5 mg Aspirin (Aspirin) 325 mg PO DAILY [facility] Stop: 05/15/17 08:59 Last Admin: 03/17/17 11:00 Dose: 325 mg Cilostazol (Pletal) 100 mg PO BID [facility] Stop: 05/14/17 16:59 Last Admin: 03/17/17 11:00 Dose: 100 mg Cyanocobalamin (Vitamin B12) 1,000 mcg PO DAILY [facility] Stop: 05/15/17 08:59 Last Admin: 03/17/17 11:00 Dose: 1,000 mcg Docusate Sodium (Colace) 100 mg PO DAILY [facility] Stop: 05/15/17 08:59 Last Admin: 03/17/17 11:00 Dose: 100 mg Donepezil HCl (Aricept) 10 mg PO DAILY [facility] Stop: 05/15/17 08:59 Last Admin: 03/17/17 11:00 Dose: 10 mg Gabapentin (Neurontin) 300 mg PO TID KENISHA Stop: 05/14/17 20:59 Last Admin: 03/17/17 11:00 Dose: 300 mg Lisinopril (Zestril) 5 mg PO DAILY KENISHA Stop: 05/15/17 08:59 Last Admin: 03/17/17 11:00 Dose: 5 mg Magnesium Hydroxide (Milk Of Magnesia) 30 ml PO HS PRN PRN Reason: Constipation Stop: 05/14/17 15:00 Pantoprazole Sodium (Protonix) 40 mg PO DAILY KENISHA Stop: 05/15/17 08:59 Last Admin: 03/17/17 11:00 Dose: 40 mg Risperidone (Risperdal) 0.5 mg PO HS KENISHA PRN Reason: Protocol Stop: 05/14/17 20:59 Last Admin: 03/16/17 20:43 Dose: 0.5 mg Sodium Chloride (Nacl Tab) 1 gm PO BID KENISHA Stop: 05/14/17 16:59 Last Admin: 03/17/17 11:00 Dose: 1 gm General: alert HEENT: NC/AT, PERRLA Neck: Supple Lungs: CTAB Cardiovascular: RRR, Normal S1, Normal S2 Abdomen: soft, non-tender, non-distended Neurological: alert Internal Medicine Assmt/Plan - Assessment Assessment: failure to thrize generalized weakness HTN Dyslipidemia - Plan Plan: ivf for hydration follow up labs in am continue current plan of care Nutritional Asmnt/Malnutr-PDOC - Dietary Evaluation Malnutrition Findings (Please click <Entered> for more info): Nutritional Asmnt/Malnutrition Start: 03/16/17 17: 03 Text: Status: Complete Freq: Document 03/16/17 17:03 [email or web address] (Rec: 03/16/17 17:08 [id number]) Nutritional Asmnt/Malnutrition Patient General Information Nutritional Screening High Risk Consult Diagnosis generlized weakness, po9or oral intake Pertinent Medical Hx/Surgical Hx HTN, asthma/COPD, dyslipidemia , AV shunt Subjective Information Consult received for poor vahe intake. Pt seen sleeping at time of visit, lunch tray at on table. RN reported pt did not want to eat, wanted go back to her facility. Per records, 25% of breakfast and lunch, 0% of dinner on 03/15. Current Diet Order/ Nutrition Support Cardiac Pertinent Medications vitamin B12, colace, protonix, nacl tab Pertinent Labs 03/15 Na 124, K 3.7, Cl 94, BUN 3, Cr 0.5, Glucose 90, Ca 8.9 Nutritional Hx/Data Height 5 ft 5 in Height (Calculated Centimeters) 165.1 Current Weight (lbs) 124 lb 8 oz Weight (Calculated Kilograms) 56.5 Weight (Calculated Grams) 06134.3 [place] Body Weight 125 % [place] Body Weight 100 Body Mass Index (BMI) 20.7 Weight Status Approriate GI Symptoms GI Symptoms None Last BM none Difficult in: None Skin Integrity/Comment: yesenia enamorado 19 Estimated Nutritional Goals BEE in Kcals: Using Current wt Calories/Kcals/Kg 25-30 Kcals Calculated 4719-8517 Protein: Using Current wt Protein g/k Protein Calculated 57 Fluid: ml 1425-1710ml (1ml/kcal) Nutritional Problem 1. Problem Problem inadequate food intake Etiology poor appetite Signs/Symptoms: PO intake 0-25% Malnutrition Alert Protein-Calorie Malnutrition N/A Is there a minimum of two criteria No selected? Query Text:Check all the applicable criteria. A minimum of two criteria are recommended for diagnosis of either severe or non-severe malnutrition. Intervention/Recommendation Comments 1. Continue with current diet as ordered. Assist pt with meals as needed. If PO intake continue low, consider Boost BID to supplement intake. 2. Monitor PO intake, wt, labs and skin integrity 3. F/U as high risk in 2-3 days, 2/2-2/3 Expected Outcomes/Goals Expected Outcomes/Goals 1. PO intake to meet at least 75% of nutritional needs. 2. Wt stability, skin to remain intact, labs to approach WNL.
[2017-03-17] MEDS ORDERED: Sodium Chloride 0.9% 1,000 ML IV SCH (13:45)
[2017-03-17] MEDS ORDERED: Sodium Chloride 3% 500 ML IV ONE ×2 (18:51→20:43)
[2017-03-18 07:10] LABS: % BASOPHILS 3.1 % (0.0-2.0); % LYMPHOCYTES 52.9 % (20.0-50.0); BASOPHILE ABSOLUTE 0.2 Th/cumm (0-0.2); EOSINOPHILE ABSOLUTE 0.1 Th/cmm (0.1-0.4); HEMOGLOBIN 12.2 gm/dL (12-16); LYMPHOCYTE ABSOLUTE 3.6 Th/cmm (1.5-3.0); MEAN CELL VOLUME 88.1 fl (81-100); MEAN CORPUSCULAR HEMOGLOBIN 29.3 pg (27.0-31.0); MEAN CORPUSCULAR HGB CONC 33.2 pg (28.0-36.0); MEAN PLATELET VOLUME 6.5 fl; MONOCYTE ABSOLUTE 0.8 Th/cmm (0.3-1.0); NEUTROPHILE ABSOLUTE 2.1 Th/cmm (1.8-8.0); RED BLOOD COUNT 4.16 Mil/cmm (3.80-5.20); RED CELL DISTRIBUTION WIDTH 13.2 % (11.5-20.0)
[2017-03-18 07:12] LABS: WHITE BLOOD COUNT 6.8 Th/cmm (4.8-10.8)
[2017-03-18 07:13] LABS: HEMATOCRIT 36.6 % (41.0-60); PLATELET COUNT 243 Th/cmm (150-400)
[2017-03-18 07:29] LABS: ANION GAP 11.2 (7.0-16.0); BUN - UREA NITROGEN 8 mg/dL (7-25); CALCIUM SERUM 8.7 mg/dL (8.6-10.3); CHLORIDE 101 mEq/L (98-107); CREATININE - SERUM 0.9 mg/dL (0.6-1.2); GLUCOSE 80 mg/dL (70-105); POTASSIUM SERUM 4.2 mEq/L (3.5-5.1); SODIUM SERUM 131 mEq/L (136-145); URIC ACID 3.4 mg/dL (2.3-6.6)
[2017-03-18] MEDS: Pantoprazole 40 mg EC Tab PO SCH (09:41)
--- NOTE | 2017-03-18 14:54 | Internal Medicine Prog Note ---
Internal Medicine Subjective - Subjective Service Date: 03/18/17 Patient is:: awake Per staff patient has:: no adverse event Internal Medicine Objective - Results Result Diagrams: 03/18/17 06:33 03/18/17 06:33 Recent Labs: Laboratory Last Values WBC 6.8 Th/cmm (4.8-10.8) D 03/18/17 06:33 RBC 4.16 Mil/cmm (3.80-5.20) 03/18/17 06:33 Hgb 12.2 gm/dL (12-16) 03/18/17 06:33 Hct 36.6 % (41.0-60) L D 03/18/17 06:33 MCV 88.1 fl (81-100) 03/18/17 06:33 MCH 29.3 pg (27.0-31.0) 03/18/17 06:33 MCHC Differential 33.2 pg (28.0-36.0) 03/18/17 06:33 RDW 13.2 % (11.5-20.0) 03/18/17 06:33 Plt Count 243 Th/cmm (150-400) D 03/18/17 06:33 MPV 6.5 fl 03/18/17 06:33 Neutrophils % 31.0 % (40.0-80.0) L 03/18/17 06:33 Band Neutrophils % 0 % (0-10) 03/14/17 18:30 Lymphocytes % 52.9 % (20.0-50.0) H 03/18/17 06:33 Monocytes % 12.0 % (2.0-10.0) H 03/18/17 06:33 Eosinophils % 1.0 % (0.0-5.0) 03/18/17 06:33 Basophils % 3.1 % (0.0-2.0) H 03/18/17 06:33 Neutrophils (Manual) 45 % (40-80) 03/14/17 18:30 Lymphocytes 45 % (20-50) 03/14/17 18:30 Monocytes 10 % (2-10) 03/14/17 18:30 Platelet Estimate ADEQUATE (NORMAL) 03/14/17 18:30 Platelet Morphology NORMAL (NORMAL) 03/14/17 18:30 RBC Morph Micro Appear NORMAL (NORMAL) 03/14/17 18:30 PT 9.7 SECONDS (9.5-11.5) 03/14/17 18:30 INR 0.93 (0.5-1.4) 03/14/17 18:30 PTT (Actin FS) 25.1 SECONDS (26.0-38.0) L 03/14/17 18:30 Sodium 131 mEq/L (136-145) L 03/18/17 06:33 Potassium 4.2 mEq/L (3.5-5.1) 03/18/17 06:33 Chloride 101 mEq/L (98-107) 03/18/17 06:33 Carbon Dioxide 23.0 mEq/L (21.0-31.0) 03/18/17 06:33 Anion Gap 11.2 (7.0-16.0) 03/18/17 06:33 BUN 8 mg/dL (7-25) 03/18/17 06:33 Creatinine 0.9 mg/dL (0.6-1.2) 03/18/17 06:33 Est GFR ( Amer) TNP 03/18/17 06:33 Est GFR (Non-Af Amer) TNP 03/18/17 06:33 BUN/Creatinine Ratio 8.9 03/18/17 06:33 Glucose 80 mg/dL (70-105) 03/18/17 06:33 Whole Bld Lactic Acid 0.73 mmol/L (0.60-1.99) 03/14/17 18:30 Uric Acid 3.4 mg/dL (2.3-6.6) 03/18/17 06:33 Calcium 8.7 mg/dL (8.6-10.3) 03/18/17 06:33 Total Bilirubin 0.7 mg/dL (0.3-1.0) 03/14/17 18:30 AST 51 U/L (13-39) H 03/14/17 18:30 ALT 22 U/L (7-52) 03/14/17 18:30 Alkaline Phosphatase 80 U/L (34-104) 03/14/17 18:30 Creatine Kinase 399 U/L (30-223) H 03/14/17 18:30 CK-MB (CK-2) 7.8 ng/mL (0.6-6.3) H 03/14/17 18:30 Troponin I 0.01 ng/mL (0.01-0.05) 03/14/17 18:30 B-Natriuretic Peptide 27.7 pg/mL (5.0-100.0) 03/14/17 18:30 Total Protein 7.7 gm/dL (6.0-8.3) 03/14/17 18:30 Albumin 4.5 gm/dL (3.7-5.3) 03/14/17 18:30 Globulin 3.2 gm/dL 03/14/17 18:30 Albumin/Globulin Ratio 1.4 (1.0-1.8) 03/14/17 18:30 Triglycerides 36 mg/dL (<150) 03/14/17 18:30 Cholesterol 146 mg/dL (<200) 03/14/17 18:30 LDL Cholesterol Direct 64 mg/dL (75-193) L 03/14/17 18:30 HDL Cholesterol 69 mg/dL (23-92) 03/14/17 18: Amylase 92 U/L (29-103) 03/14/17 18:30 Lipase 81 U/L (11-82) 03/14/17 18:30 TSH 0.67 uIU/ml (0.34-5.60) 03/15/17 05:20 Urine Source MIDSTREAM 03/17/17 01:50 Urine Color YELLOW 03/17/17 01:50 Urine Clarity CLEAR (CLEAR) 03/17/17 01:50 Urine pH 6.0 (4.6 - 8.0) 03/17/17 01:50 Ur Specific [place] <= 1.005 (1.005-1.030) 03/17/17 01:50 Urine Protein NEGATIVE mg/dL (NEGATIVE) 03/17/17 01:50 Urine Glucose (UA) NEGATIVE mg/dL (NEGATIVE) 03/17/17 01:50 Urine Ketones NEGATIVE mg/dL (NEGATIVE) 03/17/17 01:50 Urine Blood NEGATIVE (NEGATIVE) 03/17/17 01:50 Urine Nitrate NEGATIVE (NEGATIVE) 03/17/17 01:50 Urine Bilirubin NEGATIVE (NEGATIVE) 03/17/17 01:50 Urine Urobilinogen 0.2 E.U./dL (0.2 - 1.0) 03/17/17 01:50 Ur Leukocyte Esterase NEGATIVE (NEGATIVE) 03/17/17 01:50 Urine RBC 0-2 /hpf (0-5) 03/17/17 01:50 Urine WBC 0-2 /hpf (0-5) 03/17/17 01:50 Ur Epithelial Cells FEW /lpf (FEW) 03/17/17 01:50 Urine Bacteria FEW /hpf (NONE SEEN) 03/17/17 01:50 - Physical Exam Vitals and I&O: Vital Signs Temp 97 F 03/18/17 12:00 Pulse 97 03/18/17 12:00 Resp 19 03/18/17 12:00 BP 139/74 03/18/17 12:00 Pulse Ox 97 03/18/17 12:00 Intake & Output 03/17/17 03/18/17 03/18/17 18:59 06:59 18:59 Intake Total 100 120 Output Total 0 Balance 0 100 120 Weight (lbs) 124 lb 124 lb 124 lb Intake: Oral 100 120 Output: Stool 0 Other: # Voids 2 3 3 # Bowel Movements 0 1 Active Medications: Current Medications Acetaminophen (Tylenol) 650 mg PO Q4HR PRN PRN Reason: Moderate Pain or Fever >101F Stop: 05/14/17 15:00 Last Admin: 03/15/17 15:39 Dose: 650 mg Acetaminophen (Tylenol Extra Strength) 500 mg PO Q4HR PRN PRN Reason: Pain (MILD) Stop: 05/14/17 15:00 Amlodipine Besylate (Norvasc) 5 mg PO DAILY [facility] Stop: 05/15/17 08:59 Last Admin: 03/18/17 09:36 Dose: 5 mg Aspirin (Aspirin) 325 mg PO DAILY [facility] Stop: 05/15/17 08:59 Last Admin: 03/18/17 09:38 Dose: 325 mg Cilostazol (Pletal) 100 mg PO BID [facility] Stop: 05/14/17 16:59 Last Admin: 03/18/17 09:41 Dose: 100 mg Cyanocobalamin (Vitamin B12) 1,000 mcg PO DAILY [facility] Stop: 05/15/17 08:59 Last Admin: 03/18/17 09:41 Dose: 1,000 mcg Docusate Sodium (Colace) 100 mg PO DAILY [facility] Stop: 05/15/17 08:59 Last Admin: 03/18/17 09:39 Dose: 100 mg Donepezil HCl (Aricept) 10 mg PO DAILY [facility] Stop: 05/15/17 08:59 Last Admin: 03/18/17 09:40 Dose: 10 mg Gabapentin (Neurontin) 300 mg PO TID [facility] Stop: 05/14/17 20:59 Last Admin: 03/18/17 09:40 Dose: 300 mg Sodium Chloride (Hypertonic 3%) 500 mls @ 20 mls/hr IV X1 ONE Stop: 03/18/17 19:50 Last Admin: 03/17/17 21:14 Dose: 20 mls/hr Lisinopril (Zestril) 5 mg PO DAILY [facility] Stop: 05/15/17 08:59 Last Admin: 03/18/17 09:40 Dose: 5 mg Magnesium Hydroxide (Milk Of Magnesia) 30 ml PO HS PRN PRN Reason: Constipation Stop: 05/14/17 15:00 Pantoprazole Sodium (Protonix) 40 mg PO DAILY [facility] Stop: 05/15/17 08:59 Last Admin: 03/18/17 09:41 Dose: 40 mg Risperidone (Risperdal) 0.5 mg PO HS [facility] PRN Reason: Protocol Stop: 05/14/17 20:59 Last Admin: 03/17/17 21:35 Dose: 0.5 mg Sodium Chloride (Nacl Tab) 1 gm PO BID [facility] Stop: 05/14/17 16:59 Last Admin: 03/18/17 09:41 Dose: 1 gm General: alert HEENT: NC/AT, PERRLA Neck: Supple Lungs: CTAB Cardiovascular: RRR, Normal S1, Normal S2 Abdomen: soft, non-tender, non-distended Neurological: alert Internal Medicine Assmt/Plan - Assessment Assessment: failure to thrize generalized weakness HTN Dyslipidemia - Plan Plan: ivf for hydration follow up labs in am continue current plan of care Nutritional Asmnt/Malnutr-PDOC - Dietary Evaluation Malnutrition Findings (Please click <Entered> for more info): Nutritional Asmnt/Malnutrition Start: 03/16/17 17: 03 Text: Status: Complete Freq: Document 03/16/17 17:03 BECCA (Rec: 03/16/17 17:08 [email or web address]) Nutritional Asmnt/Malnutrition Patient General Information Nutritional Screening High Risk Consult Diagnosis generlized weakness, po9or oral intake Pertinent Medical Hx/Surgical Hx HTN, asthma/COPD, dyslipidemia , AV shunt Subjective Information Consult received for poor vahe intake. Pt seen sleeping at time of visit, lunch tray at on table. RN reported pt did not want to eat, wanted go back to her facility. Per records, 25% of breakfast and lunch, 0% of dinner on 03/15. Current Diet Order/ Nutrition Support Cardiac Pertinent Medications vitamin B12, colace, protonix, nacl tab Pertinent Labs 03/15 Na 124, K 3.7, Cl 94, BUN 3, Cr 0.5, Glucose 90, Ca 8.9 Nutritional Hx/Data Height 5 ft 5 in Height (Calculated Centimeters) 165.1 Current Weight (lbs) 124 lb 8 oz Weight (Calculated Kilograms) 56.5 Weight (Calculated Grams) 45685.3 [place] Body Weight 125 % [place] Body Weight 100 Body Mass Index (BMI) 20.7 Weight Status Approriate GI Symptoms GI Symptoms None Last BM none Difficult in: None Skin Integrity/Comment: yesenia enamorado 19 Estimated Nutritional Goals BEE in Kcals: Using Current wt Calories/Kcals/Kg 25-30 Kcals Calculated 3640-4016 Protein: Using Current wt Protein g/k Protein Calculated 57 Fluid: ml 1425-1710ml (1ml/kcal) Nutritional Problem 1. Problem Problem inadequate food intake Etiology poor appetite Signs/Symptoms: PO intake 0-25% Malnutrition Alert Protein-Calorie Malnutrition N/A Is there a minimum of two criteria No selected? Query Text:Check all the applicable criteria. A minimum of two criteria are recommended for diagnosis of either severe or non-severe malnutrition. Intervention/Recommendation Comments 1. Continue with current diet as ordered. Assist pt with meals as needed. If PO intake continue low, consider Boost BID to supplement intake. 2. Monitor PO intake, wt, labs and skin integrity 3. F/U as high risk in 2-3 days, 2/2-2/3 Expected Outcomes/Goals Expected Outcomes/Goals 1. PO intake to meet at least 75% of nutritional needs. 2. Wt stability, skin to remain intact, labs to approach WNL.
--- NOTE | 2017-03-18 15:02 | General Progress Note ---
Subjective - Review of Systems Service Date: 03/18/17 Subjective: alert, verbal, comfortable Objective - Results Result Diagrams: 03/18/17 06:33 03/18/17 06:33 Recent Labs: Laboratory Last Values WBC 6.8 Th/cmm (4.8-10.8) D 03/18/17 06:33 RBC 4.16 Mil/cmm (3.80-5.20) 03/18/17 06:33 Hgb 12.2 gm/dL (12-16) 03/18/17 06:33 Hct 36.6 % (41.0-60) L D 03/18/17 06:33 MCV 88.1 fl (81-100) 03/18/17 06:33 MCH 29.3 pg (27.0-31.0) 03/18/17 06:33 MCHC Differential 33.2 pg (28.0-36.0) 03/18/17 06:33 RDW 13.2 % (11.5-20.0) 03/18/17 06:33 Plt Count 243 Th/cmm (150-400) D 03/18/17 06:33 MPV 6.5 fl 03/18/17 06:33 Neutrophils % 31.0 % (40.0-80.0) L 03/18/17 06:33 Band Neutrophils % 0 % (0-10) 03/14/17 18:30 Lymphocytes % 52.9 % (20.0-50.0) H 03/18/17 06:33 Monocytes % 12.0 % (2.0-10.0) H 03/18/17 06:33 Eosinophils % 1.0 % (0.0-5.0) 03/18/17 06:33 Basophils % 3.1 % (0.0-2.0) H 03/18/17 06:33 Neutrophils (Manual) 45 % (40-80) 03/14/17 18:30 Lymphocytes 45 % (20-50) 03/14/17 18:30 Monocytes 10 % (2-10) 03/14/17 18:30 Platelet Estimate ADEQUATE (NORMAL) 03/14/17 18:30 Platelet Morphology NORMAL (NORMAL) 03/14/17 18:30 RBC Morph Micro Appear NORMAL (NORMAL) 03/14/17 18:30 PT 9.7 SECONDS (9.5-11.5) 03/14/17 18:30 INR 0.93 (0.5-1.4) 03/14/17 18:30 PTT (Actin FS) 25.1 SECONDS (26.0-38.0) L 03/14/17 18:30 Sodium 131 mEq/L (136-145) L 03/18/17 06:33 Potassium 4.2 mEq/L (3.5-5.1) 03/18/17 06:33 Chloride 101 mEq/L (98-107) 03/18/17 06:33 Carbon Dioxide 23.0 mEq/L (21.0-31.0) 03/18/17 06:33 Anion Gap 11.2 (7.0-16.0) 03/18/17 06:33 BUN 8 mg/dL (7-25) 03/18/17 06:33 Creatinine 0.9 mg/dL (0.6-1.2) 03/18/17 06:33 Est GFR ( Amer) TNP 03/18/17 06:33 Est GFR (Non-Af Amer) TNP 03/18/17 06:33 BUN/Creatinine Ratio 8.9 03/18/17 06:33 Glucose 80 mg/dL (70-105) 03/18/17 06:33 Whole Bld Lactic Acid 0.73 mmol/L (0.60-1.99) 03/14/17 18:30 Uric Acid 3.4 mg/dL (2.3-6.6) 03/18/17 06:33 Calcium 8.7 mg/dL (8.6-10.3) 03/18/17 06:33 Total Bilirubin 0.7 mg/dL (0.3-1.0) 03/14/17 18:30 AST 51 U/L (13-39) H 03/14/17 18:30 ALT 22 U/L (7-52) 03/14/17 18:30 Alkaline Phosphatase 80 U/L (34-104) 03/14/17 18:30 Creatine Kinase 399 U/L (30-223) H 03/14/17 18:30 CK-MB (CK-2) 7.8 ng/mL (0.6-6.3) H 03/14/17 18:30 Troponin I 0.01 ng/mL (0.01-0.05) 03/14/17 18:30 B-Natriuretic Peptide 27.7 pg/mL (5.0-100.0) 03/14/17 18:30 Total Protein 7.7 gm/dL (6.0-8.3) 03/14/17 18:30 Albumin 4.5 gm/dL (3.7-5.3) 03/14/17 18:30 Globulin 3.2 gm/dL 03/14/17 18:30 Albumin/Globulin Ratio 1.4 (1.0-1.8) 03/14/17 18:30 Triglycerides 36 mg/dL (<150) 03/14/17 18:30 Cholesterol 146 mg/dL (<200) 03/14/17 18:30 LDL Cholesterol Direct 64 mg/dL (75-193) L 03/14/17 18:30 HDL Cholesterol 69 mg/dL (23-92) 03/14/17 18: Amylase 92 U/L (29-103) 03/14/17 18: Lipase 81 U/L (11-82) 03/14/17 18:30 TSH 0.67 uIU/ml (0.34-5.60) 03/15/17 05:20 Urine Source MIDSTREAM 03/17/17 01:50 Urine Color YELLOW 03/17/17 01:50 Urine Clarity CLEAR (CLEAR) 03/17/17 01:50 Urine pH 6.0 (4.6 - 8.0) 03/17/17 01:50 Ur Specific [place] <= 1.005 (1.005-1.030) 03/17/17 01:50 Urine Protein NEGATIVE mg/dL (NEGATIVE) 03/17/17 01:50 Urine Glucose (UA) NEGATIVE mg/dL (NEGATIVE) 03/17/17 01:50 Urine Ketones NEGATIVE mg/dL (NEGATIVE) 03/17/17 01:50 Urine Blood NEGATIVE (NEGATIVE) 03/17/17 01:50 Urine Nitrate NEGATIVE (NEGATIVE) 03/17/17 01:50 Urine Bilirubin NEGATIVE (NEGATIVE) 03/17/17 01:50 Urine Urobilinogen 0.2 E.U./dL (0.2 - 1.0) 03/17/17 01:50 Ur Leukocyte Esterase NEGATIVE (NEGATIVE) 03/17/17 01:50 Urine RBC 0-2 /hpf (0-5) 03/17/17 01:50 Urine WBC 0-2 /hpf (0-5) 03/17/17 01:50 Ur Epithelial Cells FEW /lpf (FEW) 03/17/17 01:50 Urine Bacteria FEW /hpf (NONE SEEN) 03/17/17 01:50 - Physical Exam Vitals and I&O: Vital Signs Temp 97 F 03/18/17 12:00 Pulse 97 03/18/17 12:00 Resp 19 03/18/17 12:00 BP 139/74 03/18/17 12:00 Pulse Ox 97 03/18/17 12:00 Intake & Output 03/17/17 03/18/17 03/18/17 18:59 06:59 18:59 Intake Total 100 120 Output Total 0 Balance 0 100 120 Weight (lbs) 56.245 kg 56.245 kg 56.245 kg Intake: Oral 100 120 Output: Stool 0 Other: # Voids 2 3 3 # Bowel Movements 0 1 Active Medications: Current Medications Acetaminophen (Tylenol) 650 mg PO Q4HR PRN PRN Reason: Moderate Pain or Fever >101F Stop: 05/14/17 15:00 Last Admin: 03/15/17 15:39 Dose: 650 mg Acetaminophen (Tylenol Extra Strength) 500 mg PO Q4HR PRN PRN Reason: Pain (MILD) Stop: 05/14/17 15:00 Amlodipine Besylate (Norvasc) 5 mg PO DAILY [facility] Stop: 05/15/17 08:59 Last Admin: 03/18/17 09:36 Dose: 5 mg Aspirin (Aspirin) 325 mg PO DAILY [facility] Stop: 05/15/17 08:59 Last Admin: 03/18/17 09:38 Dose: 325 mg Cilostazol (Pletal) 100 mg PO BID [facility] Stop: 05/14/17 16:59 Last Admin: 03/18/17 09:41 Dose: 100 mg Cyanocobalamin (Vitamin B12) 1,000 mcg PO DAILY [facility] Stop: 05/15/17 08:59 Last Admin: 03/18/17 09:41 Dose: 1,000 mcg Docusate Sodium (Colace) 100 mg PO DAILY [facility] Stop: 05/15/17 08:59 Last Admin: 03/18/17 09:39 Dose: 100 mg Donepezil HCl (Aricept) 10 mg PO DAILY [facility] Stop: 05/15/17 08:59 Last Admin: 03/18/17 09:40 Dose: 10 mg Gabapentin (Neurontin) 300 mg PO TID [facility] Stop: 05/14/17 20:59 Last Admin: 03/18/17 09:40 Dose: 300 mg Sodium Chloride (Hypertonic 3%) 500 mls @ 20 mls/hr IV X1 ONE Stop: 03/18/17 19:50 Last Admin: 03/17/17 21:14 Dose: 20 mls/hr Lisinopril (Zestril) 5 mg PO DAILY [facility] Stop: 05/15/17 08:59 Last Admin: 03/18/17 09:40 Dose: 5 mg Magnesium Hydroxide (Milk Of Magnesia) 30 ml PO HS PRN PRN Reason: Constipation Stop: 05/14/17 15:00 Pantoprazole Sodium (Protonix) 40 mg PO DAILY [facility] Stop: 05/15/17 08:59 Last Admin: 03/18/17 09:41 Dose: 40 mg Risperidone (Risperdal) 0.5 mg PO HS [facility] PRN Reason: Protocol Stop: 05/14/17 20:59 Last Admin: 03/17/17 21:35 Dose: 0.5 mg Sodium Chloride (Nacl Tab) 1 gm PO BID [facility] Stop: 05/14/17 16:59 Last Admin: 03/18/17 09:41 Dose: 1 gm General: Alert, No acute distress HEENT: Atraumatic, PERRLA, Mucous membr. 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 Gen weakness Ess Htn BA/COPD Dyslipidemia - Plan Plan: Lab - Result Diagrams 03/18/17 06:33 03/18/17 06:33 Current Medications Acetaminophen (Tylenol) 650 mg PO Q4HR PRN PRN Reason: Moderate Pain or Fever >101F Stop: 05/14/17 15:00 Last Admin: 03/15/17 15:39 Dose: 650 mg Acetaminophen (Tylenol Extra Strength) 500 mg PO Q4HR PRN PRN Reason: Pain (MILD) Stop: 05/14/17 15:00 Amlodipine Besylate (Norvasc) 5 mg PO DAILY [facility] Stop: 05/15/17 08:59 Last Admin: 03/18/17 09:36 Dose: 5 mg Aspirin (Aspirin) 325 mg PO DAILY [facility] Stop: 05/15/17 08:59 Last Admin: 03/18/17 09:38 Dose: 325 mg Cilostazol (Pletal) 100 mg PO BID [facility] Stop: 05/14/17 16:59 Last Admin: 03/18/17 09:41 Dose: 100 mg Cyanocobalamin (Vitamin B12) 1,000 mcg PO DAILY [facility] Stop: 05/15/17 08:59 Last Admin: 03/18/17 09:41 Dose: 1,000 mcg Docusate Sodium (Colace) 100 mg PO DAILY [facility] Stop: 05/15/17 08:59 Last Admin: 03/18/17 09:39 Dose: 100 mg Donepezil HCl (Aricept) 10 mg PO DAILY [facility] Stop: 05/15/17 08:59 Last Admin: 03/18/17 09:40 Dose: 10 mg Gabapentin (Neurontin) 300 mg PO TID [facility] Stop: 05/14/17 20:59 Last Admin: 03/18/17 09:40 Dose: 300 mg Sodium Chloride (Hypertonic 3%) 500 mls @ 20 mls/hr IV X1 ONE Stop: 03/18/17 19:50 Last Admin: 03/17/17 21:14 Dose: 20 mls/hr Lisinopril (Zestril) 5 mg PO DAILY [facility] Stop: 05/15/17 08:59 Last Admin: 03/18/17 09:40 Dose: 5 mg Magnesium Hydroxide (Milk Of Magnesia) 30 ml PO HS PRN PRN Reason: Constipation Stop: 05/14/17 15:00 Pantoprazole Sodium (Protonix) 40 mg PO DAILY [facility] Stop: 05/15/17 08:59 Last Admin: 03/18/17 09:41 Dose: 40 mg Risperidone (Risperdal) 0.5 mg PO HS [facility] PRN Reason: Protocol Stop: 05/14/17 20:59 Last Admin: 03/17/17 21:35 Dose: 0.5 mg Sodium Chloride (Nacl Tab) 1 gm PO BID [facility] Stop: 05/14/17 16:59 Last Admin: 03/18/17 09:41 Dose: 1 gm Lab - Result Diagrams 03/18/17 06:33 03/18/17 06:33 Na up to 131 still on 3% NS add florinef f/u electrolytes in am Nutritional Asmnt/Malnutr-PDOC - Dietary Evaluation Malnutrition Findings (Please click <Entered> for more info): Nutritional Asmnt/Malnutrition Start: 03/16/17 17: 03 Text: Status: Complete Freq: Document 03/16/17 17:03 BECCA (Rec: 03/16/17 17:08 BECCA [email or web address]) Nutritional Asmnt/Malnutrition Patient General Information Nutritional Screening High Risk Consult Diagnosis generlized weakness, po9or oral intake Pertinent Medical Hx/Surgical Hx HTN, asthma/COPD, dyslipidemia , AV shunt Subjective Information Consult received for poor vahe intake. Pt seen sleeping at time of visit, lunch tray at on table. RN reported pt did not want to eat, wanted go back to her facility. Per records, 25% of breakfast and lunch, 0% of dinner on 03/15. Current Diet Order/ Nutrition Support Cardiac Pertinent Medications vitamin B12, colace, protonix, nacl tab Pertinent Labs 03/15 Na 124, K 3.7, Cl 94, BUN 3, Cr 0.5, Glucose 90, Ca 8.9 Nutritional Hx/Data Height 1.65 m Height (Calculated Centimeters) 165.1 Current Weight (lbs) 56.472 kg Weight (Calculated Kilograms) 56.5 Weight (Calculated Grams) 74849.3 [place] Body Weight 125 % [place] Body Weight 100 Body Mass Index (BMI) 20.7 Weight Status Approriate GI Symptoms GI Symptoms None Last BM none Difficult in: None Skin Integrity/Comment: yesenia enamorado Estimated Nutritional Goals BEE in Kcals: Using Current wt Calories/Kcals/Kg 25-30 Kcals Calculated 9669-6453 Protein: Using Current wt Protein g/k Protein Calculated 57 Fluid: ml 1425-1710ml (1ml/kcal) Nutritional Problem 1. Problem Problem inadequate food intake Etiology poor appetite Signs/Symptoms: PO intake 0-25% Malnutrition Alert Protein-Calorie Malnutrition N/A Is there a minimum of two criteria No selected? Query Text:Check all the applicable criteria. A minimum of two criteria are recommended for diagnosis of either severe or non-severe malnutrition. Intervention/Recommendation Comments 1. Continue with current diet as ordered. Assist pt with meals as needed. If PO intake continue low, consider Boost BID to supplement intake. 2. Monitor PO intake, wt, labs and skin integrity 3. F/U as high risk in 2-3 days, 2/2-2/3 Expected Outcomes/Goals Expected Outcomes/Goals 1. PO intake to meet at least 75% of nutritional needs. 2. Wt stability, skin to remain intact, labs to approach WNL.
--- NOTE | 2017-03-18 18:05 | Consultation ---
DATE OF CONSULTATION: 03/17/2017 ATTENDING: Dr. Hernandez. TREE SCOUT: Reece Fry M.D. REASON FOR CONSULTATION: Chronic hyponatremia. HISTORY OF PRESENT ILLNESS: This is a 76-year-old -[place] female with past medical history of hyponatremia, who came in because of generalized weakness. Three days prior to admission, [facility] staff noted the patient to have a very poor oral intake along with her medications. A few hours prior to admission, she complained of generalized weakness along with some dizziness. She was then brought to the Emergency Room. Her sugar level was within acceptable limits. Her white count was 4.5. Urinalysis was benign. Her sodium was 118. She was started on normal saline at 50 mL per hour. Her sodium improved to 124 then back down 121 today. She denied any nausea and vomiting, diarrhea, being on diuretics. PAST MEDICAL HISTORY: 1. Chronic hyponatremia. 2. Essential hypertension. 3. Bronchial asthma. 4. COPD. 5. Dyslipidemia. 6. Polyneuropathy. 7. Gastritis. CURRENT MEDICATIONS: She is currently on acetaminophen, amlodipine, aspirin, Pletal, clonidine, cyanocobalamin, Colace, Aricept, Neurontin, Zestril, milk of magnesia, pantoprazole, risperidone, sodium chloride tablets. ALLERGIES: Lovastatin. SOCIAL AND FAMILY HISTORY: I was not able to obtain directly from the patient because she is drowsy at the present time. REVIEW OF SYSTEMS: Again, I was not able to decipher directly from the patient because of the same reason. PHYSICAL EXAMINATION: GENERAL: The patient is drowsy, arousable, but remains comfortable. VITAL SIGNS: Blood pressure is 110/62, pulse 54, temperature 98 degrees. SKIN: Good turgor, warm, no rash, no jaundice appreciated. HEENT: Head normocephalic, atraumatic. Eyes: Extraocular muscles intact. Unable to assess her pupils, anicteric sclerae. Pale conjunctivae. Nose, midline nasal septum. Mouth, moist mucosa with poor dentition. NECK: Supple, no adenopathy, no thyromegaly, no bruits. Trachea palpated in the midline. CHEST AND CARDIOVASCULAR: S1, S2. No rub, murmur, or gallop appreciated. Point of maximal impulse, fifth intercostal space, left midclavicular line. No abdominal or femoral bruits appreciated. LUNGS: Equal expansion, no use of accessory muscles. No supraclavicular retractions. Decreased breath sounds, but clear to auscultation without any wheeze. BREAST: Symmetrical without any discharge. ABDOMEN: Flat, soft, positive for bowel sounds. No bruits either diastolic or systolic. RECTAL: The patient refused. GENITOURINARY: Normal appearing female genitalia. MUSCULOSKELETAL: No effusions present in her joints with adequate range of motion. EXTREMITIES: No evidence of edema, cyanosis or clubbing with palpable femoral, popliteal, or dorsalis pedis pulses. NEUROLOGIC: The patient remains drowsy at the present time. She was not able to follow my neuro commands, so I was not able to pursue further my neuro exam. LABORATORY DATA: Did reveal white count 4.5, hemoglobin 10.9, hematocrit 32.7, platelets 336, polys 32.4%. Sodium 121, potassium 3.9, chloride 93, bicarbonate 20, BUN 8, creatinine 0.6, glucose 122, calcium 8.4, creatinine kinase 399. Troponin 0.01. BNP 27. Albumin 4.5, TSH 0.67. IMPRESSION: 1. Chronic hyponatremia likely due to syndrome of inappropriate antidiuretic hormone secretion with history of hyponatremia in the past. On exam, the patient looks euvolemic. However, we also need to consider a reset osmostat as the cause of her hyponatremia. 2. Generalized weakness and dizziness secondary to malnutrition due to very poor oral intake or severe hyponatremia. 3. Essential hypertension. 4. Bronchial asthma. 5. Chronic obstructive pulmonary disease. 6. Dyslipidemia. 7. Polyneuropathy. 8. Gastritis. PLAN: 1. Start the patient on 3% normal saline because of her persistent weakness and dizziness. It is quite important to keep the increase of sodium limited to about 12 mEq per 24 hours to avoid hyperosmolar demyelination syndrome. 2. Urine sodium. 3. A 24-hour urine for sodium. 4. Cortisol, aldosterone, uric acid, and serum osmolarity. 5. Follow up electrolytes. JOB# [id number]
--- NOTE | 2017-03-22 01:40 | Discharge Summary ---
DATE OF DISCHARGE: 03/18/2017 HISTORY AND HOSPITAL COURSE: This patient is a resident of [place]. Apparently, the patient had weakness, shortness of breath and cellulitis, was admitted at [facility]. The patient's diagnosis is cellulitis, history of asthma, COPD, hyperlipidemia and the patient was treated at [facility] and the patient's antibiotics and pain medications and the patient improved. The patient is in stable condition on 03/18/2017, discharged back to [place] with the final diagnosis of cellulitis, improving; history of hypertension; asthma; COPD; dyslipidemia and right arm cellulitis improved. The patient also had infected shunt and complaining of pain to improve. The patient was sent back to [place] with antibiotics and I will follow the patient there. CONDITION AT THE TIME OF DISCHARGE: Stable. JOB# [id number]
== END 2017-03-18 16:07 | disposition home or self-care (01) | DRG 315 ==
LOC: ER 18:13 → MSI 19:42 → TELE 20:27
PROVIDERS: ADMIT Internal Medicine; ATTEND Internal Medicine
DX: T82.7XXA Infection and inflammatory reaction due to other cardiac and vascular devices, implants and grafts, initial encounter (principal); E22.2 Syndrome of inappropriate secretion of antidiuretic hormone; E46 Unspecified protein-calorie malnutrition; N17.9 Acute kidney failure, unspecified; G62.9 Polyneuropathy, unspecified; L03.113 Cellulitis of right upper limb; E86.0 Dehydration; J44.9 Chronic obstructive pulmonary disease, unspecified; I10 Essential (primary) hypertension; E78.5 Hyperlipidemia, unspecified; K29.70 Gastritis, unspecified, without bleeding; R62.7 Adult failure to thrive; Y83.8 Other surgical procedures as the cause of abnormal reaction of the patient, or of later complication, without mention of misadventure at the time of the procedure; E03.9 Hypothyroidism, unspecified; Z88.8 Allergy status to other drugs, medicaments and biological substances; Z82.49 Family history of ischemic heart disease and other diseases of the circulatory system; Z79.82 Long term (current) use of aspirin; Z68.20 Body mass index [BMI] 20.0-20.9, adult; Y92.89 Other specified places as the place of occurrence of the external cause
CPT/HCPCS: 36415-UA; 71045-TC; 76770-TC; 80048-TC; 80053-TC; 80061-TC; 81001-TC; 82088-90; 82150-TC; 82533-90; 82550-TC; 82553; 83605; 83690-TC; 83880-TC; 84443-TC; 84484-TC; 84550-TC; 85007-TC; 85025-TC; 85027-TC; 85610-TC; 85730-TC; 87086-90; 93005; J7030; J7131; Z7610

== ENCOUNTER 2017-05-14 12:12 | Inpatient (IN) | payer MEDICARE, MEDICAID ==
[2017-05-14 12:49] LABS: URINE MICROSCOPIC INDICATED? YES; URINE SOURCE CLEAN C
[2017-05-14 12:55] LABS: % BASOPHILS 3.9 % (0.0-2.0); % EOSINOPHILS 1.4 % (0.0-5.0); % LYMPHOCYTES 48.1 % (20.0-50.0); % MONOCYTES 10.8 % (2.0-10.0); % NEUTROPHILS 35.8 % (40.0-80.0); BASOPHILE ABSOLUTE 0.2 Th/cumm (0-0.2); EOSINOPHILE ABSOLUTE 0.1 Th/cmm (0.1-0.4); HEMATOCRIT 32.4 % (41.0-60); LYMPHOCYTE ABSOLUTE 2.4 Th/cmm (1.5-3.0); MEAN CELL VOLUME 87.6 fl (81-100); MEAN CORPUSCULAR HEMOGLOBIN 29.7 pg (27.0-31.0); MEAN CORPUSCULAR HGB CONC 33.9 pg (28.0-36.0); MEAN PLATELET VOLUME 6.4 fl; MONOCYTE ABSOLUTE 0.6 Th/cmm (0.3-1.0); NEUTROPHILE ABSOLUTE 1.9 Th/cmm (1.8-8.0); PLATELET COUNT 449 Th/cmm (150-400); RED CELL DISTRIBUTION WIDTH 13.7 % (11.5-20.0); WHITE BLOOD COUNT 5.2 Th/cmm (4.8-10.8)
--- NOTE | 2017-05-14 13:03 | ED Physician Chart ---
ED Chief Complaint/HPI - Patient Information Date Seen:: 05/14/17 Time Seen:: 13:02 Chief Complaint:: the patient awoke this a.m. with swelling of the right upper lip accompanie History of Present Illness:: The patient is unaware of any local trauma and she denies any fever, chills, or sweats. She has never experienced a similar episode in the past. Patient does not recall any trauma to the right upper lip region. Allergies:: Allergies Allergy/AdvReac Type Severity Reaction Status Date / Time lovastatin Allergy Verified 03/07/17 18:40 Vitals:: Vital Signs - 8 hr 05/14/17 12:41 Temp 99 F HR 91 RR 18 BP 130/66 O2 Sat % 99 Family Medical History - Family Member Mother History Unknown: Yes Hx Family Cancer: No Hx Family Hypertension: No Hx Family Stroke: No Hx Family Seizures: No Hx Family Dementia: No Hx Family AIDS: No Hx Family COPD: No ED Labs/Radiology/EKG Results - Lab Results Results: Laboratory Tests 05/14/17 12:38 WBC 5.2 RBC 3.70 L Hgb 11.0 L Hct 32.4 L MCV 87.6 MCH 29.7 MCHC Differential 33.9 RDW 13.7 Plt Count 449 H MPV 6.4 Neutrophils % 35.8 L Lymphocytes % 48.1 Monocytes % 10.8 H Eosinophils % 1.4 Basophils % 3.9 H ED Septic Shock - . Is Septic Shock (SBP<90, OR Lactate>4 mmol\L) present?: No - <6hrs of presentation: Vital Signs: Vital Signs - 8 hr 05/14/17 12:41 Temp 99 F HR 91 RR 18 BP 130/66 O2 Sat % 99 ED Reassessment (Disposition) - Reassessment Reassessment Condition:: Improved - Diagnosis Diagnosis:: ANGIOEDEMA VS ALLERGIC REACTION RT UPPER LIP ED Discharge Plan - Patient Disposition Admit/Discharge/Transfer: Acute Care w/in this hosp
[2017-05-14 13:14] LABS: URINE CLARITY CLEAR (CLEAR); URINE COLOR YELLOW
[2017-05-14 13:15] LABS: URINE BILIRUBIN NEGATIVE (NEGATIVE); URINE BLOOD NEGATIVE (NEGATIVE); URINE GLUCOSE (UA) NEGATIVE (NEGATIVE); URINE KETONE NEGATIVE (NEGATIVE); URINE LEUKOCYTE ESTERASE NEGATIVE (NEGATIVE); URINE NITRATE NEGATIVE (NEGATIVE); URINE PROTEIN NEGATIVE (NEGATIVE); URINE RBC NONE SEEN /hpf (0-5); URINE UROBILINOGEN 0.2 E.U./dL (0.2 - 1.0); URINE WBC 0-2 /hpf (0-5)
[2017-05-14 13:16] LABS: URINE BACTERIA FEW /hpf (NONE SEEN); URINE EPITHELIAL CELLS OCCASIONAL /lpf (FEW)
[2017-05-14 13:21] LABS: ALB/GLOB RATIO 1.1 (1.0-1.8); ALBUMIN 3.7 gm/dL (3.7-5.3); ALKALINE PHOSPHATASE 67 U/L (34-104); BILIRUBIN,TOTAL 0.5 mg/dL (0.3-1.0); BUN - UREA NITROGEN 7 mg/dL (7-25); CALCIUM SERUM 9.4 mg/dL (8.6-10.3); CHLORIDE 91 mEq/L (98-107); CREATININE - SERUM 0.7 mg/dL (0.6-1.2); GLUCOSE 97 mg/dL (70-105); SGOT 28 U/L (13-39); SGPT/ALT 11 U/L (7-52); SODIUM SERUM 123 mEq/L (136-145)
[2017-05-14 17:29] VITALS: BP 135/60
[2017-05-14] MEDS ORDERED: Magnesium Hydroxide (MOM) 30 mL UDC PO PRN (19:13)
[2017-05-14] MEDS ORDERED: Acetaminophen 500 MG TAB PO PRN (19:13)
--- NOTE | 2017-05-14 20:21 | History & Physical ---
ADMIT DATE: 05/14/2017 HISTORY OF PRESENT ILLNESS: The patient apparently had swelling of her right upper lip since yesterday who woke up with that. The patient complained of no fever, no chills, no rigors, no trauma. The patient is known to have history of psych disorder and history of depression, on multiple medications. PAST MEDICAL HISTORY: As noted in the past. PHYSICAL EXAMINATION: HEENT: Normocephalic. Pupils equal, reactive to light. NECK: Supple, nontender. LUNGS: Clear. CARDIOVASCULAR SYSTEM: S1, S2 heard. ABDOMEN: Soft. Bowel sounds are heard. CENTRAL NERVOUS SYSTEM: Grossly normal. LABORATORY DATA: Apparently when she came to the floor, she fell on the right leg and she is complaining of pain to the right knee. DIAGNOSES: Right upper lip swelling of possible allergic reaction, rule out cellulitis; history of psych disorder; history of depression; and history of fall, right knee pain, right knee contusion. PLAN: The patient is going to be admitted and give steroids. I will have Dr. Karl Vallejo see the patient. I will follow the patient. I will also do the x-rays of the knee. JOB# [id number]
--- NOTE | 2017-05-14 23:02 | Consultation ---
Consult Note - Consult Note Service Date: 05/14/17 Referring Physician: Phan Hernandez Consult Note: PHYSICIAN Consultation Note: Date of Admission: 05/14/17 Purpose of Consultation: facial cellulitis. Chief Complaint: Patient HARESH TRENT was admitted to location Medical/Surgical Unit I with RT FACIAL SWELLING R/O ALLERGIC REACTION. History of Present Illness: 76 year old female presented with upper lip swelling and associated lower facial swelling of one day. She stated that she was doing well, and she woke up with the above mentioned swelling. So she came to the ED. She denies any relation with any food or drugs. she had been receiving steroids. Past Medical History: Allergies Allergy/AdvReac Type Severity Reaction Status Date / Time lovastatin Allergy Verified 03/07/17 18:40 Vital Signs Temp 98.3 F 05/14/17 21:25 Pulse 71 05/14/17 21:25 Resp 18 05/14/17 21:25 BP 146/73 05/14/17 21:25 Pulse Ox 96 05/14/17 21:25 Intake & Output 05/14/17 05/14/17 05/15/17 06:59 18:59 06:59 Intake Total 250 Output Total 400 Balance -150 Weight (lbs) 53.161 kg Intake: Oral 250 Output: Urine 400 Other: Weight Source [facility] Home Medication Medication Instructions Recorded Type Acetaminophen [Tylenol Extra 1,000 mg PO Q4HR PRN 03/14/17 History Strength] Acetaminophen [Tylenol] 650 mg PO Q4HR PRN 03/14/17 History Aspirin 325 mg PO DAILY 03/14/17 History Cilostazol 100 mg PO BID 03/14/17 History Clonidine HCl [Catapres] 0.1 mg PO Q6H PRN 03/14/17 History Cyanocobalamin [Vitamin B12] 1,000 mcg PO DAILY 03/14/17 History Docusate Sodium [Colace] 100 mg PO DAILY 03/14/17 History Donepezil Hcl [Aricept] 10 mg PO DAILY 03/14/17 History Gabapentin [Neurontin] 300 mg PO TID 03/14/17 History Lisinopril 5 mg PO DAILY 03/14/17 History Magnesium Hydroxide [Milk of 30 ml PO HS PRN 03/14/17 History Magnesia] Pantoprazole [Protonix] 40 mg PO DAILY 03/14/17 History Sodium Chloride 1 gm PO BID 03/14/17 History amLODIPine Besylate [Norvasc] 5 mg PO DAILY 03/14/17 History Escitalopram Oxalate [Lexapro] 5 mg PO HS 05/14/17 History Current Medications Generic Name Dose Route Start Last Admin Trade Name Freq PRN Reason Stop Dose Admin Acetaminophen 650 mg 05/14/17 19:13 Tylenol PO 07/13/17 19:12 Q4HR PRN Pain or Fever >101 Amlodipine Besylate 5 mg 05/15/17 09:00 Norvasc PO 07/14/17 08:59 DAILY [facility] Aspirin 325 mg 05/15/17 09:00 Aspirin PO 07/14/17 08:59 DAILY [facility] Cilostazol 100 mg 05/15/17 09:00 Pletal PO 07/14/17 08:59 BID [facility] Cyanocobalamin 1,000 mcg 05/15/17 09:00 Vitamin B12 PO 07/14/17 08:59 DAILY [facility] Docusate Sodium 100 mg 05/15/17 09:00 Colace PO 07/14/17 08:59 DAILY [facility] Donepezil HCl 10 mg 05/15/17 09:00 Aricept PO 07/14/17 08:59 DAILY [facility] Escitalopram Oxalate 5 mg 05/14/17 21:00 Lexapro PO 07/13/17 20:59 HS KENISHA Protocol Gabapentin 300 mg 05/14/17 21:00 05/14/17 21:03 Neurontin PO 07/13/17 20:59 300 mg TID KENISHA Administration Lisinopril 5 mg 05/15/17 09:00 Zestril PO 07/14/17 08:59 DAILY [facility] Magnesium Hydroxide 30 ml 05/14/17 19:13 Milk Of Magnesia PO 07/13/17 19:12 HS PRN Constipation Methylprednisolone Sodium Succinate 125 mg 05/14/17 21:00 05/14/17 21:03 Solu-Medrol IVP 07/13/17 20:59 125 mg Q6H KENISHA Administration Pantoprazole Sodium 40 mg 05/15/17 09:00 Protonix PO 07/14/17 08:59 DAILY [facility] Sodium Chloride 1 gm 05/15/17 09:00 Nacl Tab PO 07/14/17 08:59 BID [facility] Tramadol HCl 50 mg 05/14/17 19:55 03/31/18 21:03 Ultram PO 07/13/17 19:54 50 mg Q6HR PRN Administration Pain (Moderate) Review of Systems: A 12 point ROS was reviewed with the pertinent positive and negatives noted in the HPI. Social History Smoking Status Unknown if ever smoked Family Medical History Family Medical History Start: 05/14/17 17: 25 Freq: ONCE Status: Active Document 05/14/17 17:25 TEENA (Rec: 05/14/17 22:19 TEENA [id number]) Family Medical History Mother History Unknown Yes Physical Exam: General: Comfortable, not in any acute distress. HEENT: Head: NC NT. Oral cavily moist pink tongue, swelling of the lip on the right with associated facial swelling. eyes: mp pallopr, no icterus. Neck: Supple, no JVD, no carotid bruit. Cardio: S1 and S2 WNL. Respiratory: Vesicular breath sounds. Abdominal: Soft NT ND BS present. Genital/Urinary: Deferred Extremities: NCCE. Neurological: AAIOx3. Assessment: 1. Upper lip swelling, ?Angioedema. 2. Depression. Plan: will continue steroids. Thank you , Dr Hernandez for involving me in taking care of this patient. Signed, Karl Vallejo M.D. [id number]
[2017-05-15] MEDS: Pantoprazole 40 mg EC Tab PO SCH (10:11)
--- NOTE | 2017-05-15 10:28 | Diagnostic Imaging Report ---
EXAM: Right knee joint HISTORY: Trauma COMPARISON: None FINDINGS: Multiple views of the right knee joint reviewed. The study demonstrates no evidence of fracture or dislocation. There is no evidence for joint effusion. The patella is intact. If clinically indicated ligamentous or meniscal injury is considered MRI examination might be helpful. IMPRESSION: Normal examination right knee joint.
--- NOTE | 2017-05-15 11:23 | General Progress Note ---
Subjective - Review of Systems Events since last encounter: patient with rt facial swelling awake in no distress Objective - Results Result Diagrams: 05/14/17 12:38 05/14/17 12:38 Recent Labs: Laboratory Last Values WBC 5.2 Th/cmm (4.8-10.8) 05/14/17 12:38 RBC 3.70 Mil/cmm (3.80-5.20) L 05/14/17 12:38 Hgb 11.0 gm/dL (12-16) L 05/14/17 12:38 Hct 32.4 % (41.0-60) L 05/14/17 12:38 MCV 87.6 fl (81-100) 05/14/17 12:38 MCH 29.7 pg (27.0-31.0) 05/14/17 12:38 MCHC Differential 33.9 pg (28.0-36.0) 05/14/17 12:38 RDW 13.7 % (11.5-20.0) 05/14/17 12:38 Plt Count 449 Th/cmm (150-400) H 05/14/17 12:38 MPV 6.4 fl 05/14/17 12:38 Neutrophils % 35.8 % (40.0-80.0) L 05/14/17 12:38 Lymphocytes % 48.1 % (20.0-50.0) 05/14/17 12:38 Monocytes % 10.8 % (2.0-10.0) H 05/14/17 12:38 Eosinophils % 1.4 % (0.0-5.0) 05/14/17 12:38 Basophils % 3.9 % (0.0-2.0) H 05/14/17 12:38 Sodium 123 mEq/L (136-145) L 05/14/17 12:38 Potassium 4.0 mEq/L (3.5-5.1) 05/14/17 12:38 Chloride 91 mEq/L (98-107) L 05/14/17 12:38 Carbon Dioxide 25.0 mEq/L (21.0-31.0) 05/14/17 12:38 Anion Gap 11.0 (7.0-16.0) 05/14/17 12:38 BUN 7 mg/dL (7-25) 05/14/17 12:38 Creatinine 0.7 mg/dL (0.6-1.2) 05/14/17 12:38 Est GFR ( Amer) TNP 05/14/17 12:38 Est GFR (Non-Af Amer) TNP 05/14/17 12:38 BUN/Creatinine Ratio 10.0 05/14/17 12:38 Glucose 97 mg/dL (70-105) 05/14/17 12:38 Calcium 9.4 mg/dL (8.6-10.3) 05/14/17 12:38 Total Bilirubin 0.5 mg/dL (0.3-1.0) 05/14/17 12:38 AST 28 U/L (13-39) 05/14/17 12:38 ALT 11 U/L (7-52) 05/14/17 12:38 Alkaline Phosphatase 67 U/L (34-104) 05/14/17 12:38 Total Protein 7.0 gm/dL (6.0-8.3) 05/14/17 12:38 Albumin 3.7 gm/dL (3.7-5.3) 05/14/17 12:38 Globulin 3.3 gm/dL 05/14/17 12:38 Albumin/Globulin Ratio 1.1 (1.0-1.8) 05/14/17 12:38 Urine Source CLEAN C 05/14/17 12:10 Urine Color YELLOW 05/14/17 12:10 Urine Clarity CLEAR (CLEAR) 05/14/17 12:10 Urine pH 7.0 (4.6 - 8.0) 05/14/17 12:10 Ur Specific [place] 1.010 (1.005-1.030) 05/14/17 12:10 Urine Protein NEGATIVE mg/dL (NEGATIVE) 05/14/17 12:10 Urine Glucose (UA) NEGATIVE mg/dL (NEGATIVE) 05/14/17 12:10 Urine Ketones NEGATIVE mg/dL (NEGATIVE) 05/14/17 12:10 Urine Blood NEGATIVE (NEGATIVE) 05/14/17 12:10 Urine Nitrate NEGATIVE (NEGATIVE) 05/14/17 12:10 Urine Bilirubin NEGATIVE (NEGATIVE) 05/14/17 12:10 Urine Urobilinogen 0.2 E.U./dL (0.2 - 1.0) 05/14/17 12:10 Ur Leukocyte Esterase NEGATIVE (NEGATIVE) 05/14/17 12:10 Urine RBC NONE SEEN /hpf (0-5) 05/14/17 12:10 Urine WBC 0-2 /hpf (0-5) 05/14/17 12:10 Ur Epithelial Cells OCCASIONAL /lpf (FEW) 05/14/17 12:10 Urine Bacteria FEW /hpf (NONE SEEN) 05/14/17 12:10 - Physical Exam Vitals and I&O: Vital Signs Temp 97.5 F 05/15/17 08:00 Pulse 61 05/15/17 10:10 Resp 18 05/15/17 08:00 BP 145/74 05/15/17 10:10 Pulse Ox 98 05/15/17 08:00 Intake & Output 05/14/17 05/15/17 05/15/17 18:59 06:59 18:59 Intake Total 250 200 Output Total 400 Balance -150 200 Weight (lbs) 53.161 kg 53.161 kg Intake: Oral 250 200 Output: Urine 400 Other: # Voids 3 # Bowel Movements 0 Weight Source Bedscale Bedscale Active Medications: Current Medications Acetaminophen (Tylenol) 650 mg PO Q4HR PRN PRN Reason: Pain or Fever >101 Stop: 07/13/17 19:12 Amlodipine Besylate (Norvasc) 5 mg PO DAILY [facility]ISHA Stop: 07/14/17 08:59 Last Admin: 05/15/17 10:02 Dose: 5 mg Aspirin (Aspirin) 325 mg PO DAILY [facility] Stop: 07/14/17 08:59 Last Admin: 05/15/17 10:02 Dose: 325 mg Cilostazol (Pletal) 100 mg PO BID [facility] Stop: 07/14/17 08:59 Last Admin: 05/15/17 10:03 Dose: 100 mg Cyanocobalamin (Vitamin B12) 1,000 mcg PO DAILY [facility] Stop: 07/14/17 08:59 Last Admin: 05/15/17 10:03 Dose: 1,000 mcg Docusate Sodium (Colace) 100 mg PO DAILY [facility] Stop: 07/14/17 08:59 Last Admin: 05/15/17 10:03 Dose: 100 mg Donepezil HCl (Aricept) 10 mg PO DAILY [facility] Stop: 07/14/17 08:59 Last Admin: 05/15/17 10:07 Dose: 10 mg Escitalopram Oxalate (Lexapro) 5 mg PO HS KENISHA PRN Reason: Protocol Stop: 07/13/17 20:59 Gabapentin (Neurontin) 300 mg PO TID [facility] Stop: 07/13/17 20:59 Last Admin: 05/15/17 10:09 Dose: 300 mg Lisinopril (Zestril) 5 mg PO DAILY [facility] Stop: 07/14/17 08:59 Last Admin: 05/15/17 10:10 Dose: 5 mg Magnesium Hydroxide (Milk Of Magnesia) 30 ml PO HS PRN PRN Reason: Constipation Stop: 07/13/17 19:12 Methylprednisolone Sodium Succinate (Solu-Medrol) 125 mg IVP Q6H [facility]IS[facility] Stop: 07/13/17 20:59 Last Admin: 05/15/17 10:10 Dose: 125 mg Pantoprazole Sodium (Protonix) 40 mg PO DAILY [facility] Stop: 07/14/17 08:59 Last Admin: 05/15/17 10:11 Dose: 40 mg Sodium Chloride (Nacl Tab) 1 gm PO BID [facility] Stop: 07/14/17 08:59 Last Admin: 05/15/17 10:11 Dose: 1 gm Tramadol HCl (Ultram) 50 mg PO Q6HR PRN PRN Reason: Pain (Moderate) Stop: 07/13/17 19:54 Last Admin: 05/14/17 21:03 Dose: 50 mg Assessment/Plan - Problem List Patient Problems: All Active Problems RIGHT FACIAL AND LIP SWELLING (Acute)
--- NOTE | 2017-05-15 18:07 | Consultation ---
DATE OF CONSULTATION: 05/15/2017 HISTORY OF PRESENT ILLNESS: A 76-year-old female currently in the hospital under the care of Dr. Hernandez. Well-oriented to name, place, situation, and year, month. She knows the day of the week. She has swelling of her right upper lip and she is aware of this. She denies any current depression, no anxiety. States she is sleeping okay, eating okay. She states she is hopeful to get better. She is motivated to leave the hospital. Denies any sadness. PAST PSYCHIATRIC HISTORY: Seems as history of depression. She denies any suicide history. FAMILY HISTORY: Noncontributory. SOCIAL HISTORY: Born in [place]. She states she many years ago and her ex- is now . She states she has 7 sons, but they are not very involved. She is not very happy about that. No drugs, no alcohol, no tobacco. PAST MEDICAL HISTORY: As noted including dementia. MENTAL STATUS EXAMINATION: -[place] female of stated age. Fair eye contact, fair orientation. Mood "pretty good." Affect constricted. Thought processes were grossly linear. No SI, no HI. No psychosis. Insight and judgment reasonable. PROVISIONAL DIAGNOSIS: Dementia per documentation, major depression, unspecified. Although the patient is denying any overt symptoms of sadness, melancholy. No hopeless thoughts. Under MEDICAL: Please see full H and P. RECOMMENDATIONS AND PLAN: The patient fairly stable from a psychiatric perspective. Any symptoms of depression seem to be well controlled. We will continue to monitor and follow up. [facility]# [id number]
--- NOTE | 2017-05-15 19:48 | Infectious Disease Prog Note ---
Infectious Disease Subjective - Review of Systems Service Date: 05/15/17 Subjective: Upper lip swelling has resolved. no fever. Infectious Disease Objective - Results Result Diagrams: 05/14/17 12:38 05/14/17 12:38 Recent Labs: Laboratory Last Values WBC 5.2 Th/cmm (4.8-10.8) 05/14/17 12:38 RBC 3.70 Mil/cmm (3.80-5.20) L 05/14/17 12:38 Hgb 11.0 gm/dL (12-16) L 05/14/17 12:38 Hct 32.4 % (41.0-60) L 05/14/17 12:38 MCV 87.6 fl (81-100) 05/14/17 12:38 MCH 29.7 pg (27.0-31.0) 05/14/17 12:38 MCHC Differential 33.9 pg (28.0-36.0) 05/14/17 12:38 RDW 13.7 % (11.5-20.0) 05/14/17 12:38 Plt Count 449 Th/cmm (150-400) H 05/14/17 12:38 MPV 6.4 fl 05/14/17 12:38 Neutrophils % 35.8 % (40.0-80.0) L 05/14/17 12:38 Lymphocytes % 48.1 % (20.0-50.0) 05/14/17 12:38 Monocytes % 10.8 % (2.0-10.0) H 05/14/17 12:38 Eosinophils % 1.4 % (0.0-5.0) 05/14/17 12:38 Basophils % 3.9 % (0.0-2.0) H 05/14/17 12:38 Sodium 123 mEq/L (136-145) L 05/14/17 12:38 Potassium 4.0 mEq/L (3.5-5.1) 05/14/17 12:38 Chloride 91 mEq/L (98-107) L 05/14/17 12:38 Carbon Dioxide 25.0 mEq/L (21.0-31.0) 05/14/17 12:38 Anion Gap 11.0 (7.0-16.0) 05/14/17 12:38 BUN 7 mg/dL (7-25) 05/14/17 12:38 Creatinine 0.7 mg/dL (0.6-1.2) 05/14/17 12:38 Est GFR ( Amer) TNP 05/14/17 12:38 Est GFR (Non-Af Amer) TNP 05/14/17 12:38 BUN/Creatinine Ratio 10.0 05/14/17 12:38 Glucose 97 mg/dL (70-105) 05/14/17 12:38 Calcium 9.4 mg/dL (8.6-10.3) 05/14/17 12:38 Total Bilirubin 0.5 mg/dL (0.3-1.0) 05/14/17 12:38 AST 28 U/L (13-39) 05/14/17 12:38 ALT 11 U/L (7-52) 05/14/17 12:38 Alkaline Phosphatase 67 U/L (34-104) 05/14/17 12:38 Total Protein 7.0 gm/dL (6.0-8.3) 05/14/17 12:38 Albumin 3.7 gm/dL (3.7-5.3) 05/14/17 12:38 Globulin 3.3 gm/dL 05/14/17 12:38 Albumin/Globulin Ratio 1.1 (1.0-1.8) 05/14/17 12:38 Urine Source CLEAN C 05/14/17 12:10 Urine Color YELLOW 05/14/17 12:10 Urine Clarity CLEAR (CLEAR) 05/14/17 12:10 Urine pH 7.0 (4.6 - 8.0) 05/14/17 12:10 Ur Specific [place] 1.010 (1.005-1.030) 05/14/17 12:10 Urine Protein NEGATIVE mg/dL (NEGATIVE) 05/14/17 12:10 Urine Glucose (UA) NEGATIVE mg/dL (NEGATIVE) 05/14/17 12:10 Urine Ketones NEGATIVE mg/dL (NEGATIVE) 05/14/17 12:10 Urine Blood NEGATIVE (NEGATIVE) 05/14/17 12:10 Urine Nitrate NEGATIVE (NEGATIVE) 05/14/17 12:10 Urine Bilirubin NEGATIVE (NEGATIVE) 05/14/17 12:10 Urine Urobilinogen 0.2 E.U./dL (0.2 - 1.0) 05/14/17 12:10 Ur Leukocyte Esterase NEGATIVE (NEGATIVE) 05/14/17 12:10 Urine RBC NONE SEEN /hpf (0-5) 05/14/17 12:10 Urine WBC 0-2 /hpf (0-5) 05/14/17 12:10 Ur Epithelial Cells OCCASIONAL /lpf (FEW) 05/14/17 12:10 Urine Bacteria FEW /hpf (NONE SEEN) 05/14/17 12:10 - Physical Exam Vitals and I&O: Vital Signs Temp 97.4 F 05/15/17 16:00 Pulse 68 05/15/17 16:00 Resp 18 05/15/17 16:00 BP 131/72 05/15/17 16:00 Pulse Ox 98 05/15/17 16:00 Intake & Output 05/15/17 05/15/17 05/16/17 06:59 18:59 06:59 Intake Total 200 350 Balance 200 350 Weight (lbs) 53.161 kg 53.161 kg Intake: Oral 200 350 Other: # Voids 3 5 # Bowel Movements 0 1 Stool Characteristics Soft Brown Weight Source Bedscale Bedscale Active Medications: Current Medications Acetaminophen (Tylenol) 650 mg PO Q4HR PRN PRN Reason: Pain or Fever >101 Stop: 07/13/17 19:12 Amlodipine Besylate (Norvasc) 5 mg PO DAILY [facility] Stop: 07/14/17 08:59 Last Admin: 05/15/17 10:02 Dose: 5 mg Aspirin (Aspirin) 325 mg PO DAILY [facility] Stop: 07/14/17 08:59 Last Admin: 05/15/17 10:02 Dose: 325 mg Cilostazol (Pletal) 100 mg PO BID [facility] Stop: 07/14/17 08:59 Last Admin: 05/15/17 16:49 Dose: 100 mg Cyanocobalamin (Vitamin B12) 1,000 mcg PO DAILY [facility] Stop: 07/14/17 08:59 Last Admin: 05/15/17 10:03 Dose: 1,000 mcg Docusate Sodium (Colace) 100 mg PO DAILY [facility] Stop: 07/14/17 08:59 Last Admin: 05/15/17 10:03 Dose: 100 mg Donepezil HCl (Aricept) 10 mg PO DAILY [facility] Stop: 07/14/17 08:59 Last Admin: 05/15/17 10:07 Dose: 10 mg Escitalopram Oxalate (Lexapro) 5 mg PO HS [facility]HA PRN Reason: Protocol Stop: 07/13/17 20:59 Gabapentin (Neurontin) 300 mg PO TID [facility] Stop: 07/13/17 20:59 Last Admin: 05/15/17 14:59 Dose: 300 mg Lisinopril (Zestril) 5 mg PO DAILY [facility] Stop: 07/14/17 08:59 Last Admin: 05/15/17 10:10 Dose: 5 mg Magnesium Hydroxide (Milk Of Magnesia) 30 ml PO HS PRN PRN Reason: Constipation Stop: 07/13/17 19:12 Methylprednisolone Sodium Succinate (Solu-Medrol) 125 mg IVP Q6H [facility] Stop: 07/13/17 20:59 Last Admin: 05/15/17 14:59 Dose: 125 mg Pantoprazole Sodium (Protonix) 40 mg PO DAILY [facility] Stop: 07/14/17 08:59 Last Admin: 05/15/17 10:11 Dose: 40 mg Sodium Chloride (Nacl Tab) 1 gm PO BID [facility] Stop: 07/14/17 08:59 Last Admin: 05/15/17 16:49 Dose: 1 gm Tramadol HCl (Ultram) 50 mg PO Q6HR PRN PRN Reason: Pain (Moderate) Stop: 07/13/17 19:54 Last Admin: 05/15/17 14:59 Dose: 50 mg General: no acute distress, well developed, well nourished HEENT: atraumatic, normocephalic, PERRLA, EOMI Neck: supple, no thyromegaly Cardiovascular: S1S2, regular Lungs: clear to auscultation bilaterally, clear to percussion Abdomen: soft, no tender, no distended, no mass, no rebound Extremities: no cyanosis, no clubbing Neurological: awake, alert, oriented Skin: intact Infectious Disease Assmt/Plan - Problem List Patient Problems: All Active Problems RIGHT FACIAL AND LIP SWELLING (Acute) - Assessment Assessment: 1. Upper lip swelling, ?Angioedema. resolved. 2. Depression. - Plan Plan: Dc planning.
[2017-05-15] MEDS: Escitalopram Oxalate 5 mg Tab PO SCH (21:36)
[2017-05-16] MEDS: Pantoprazole 40 mg EC Tab PO SCH (08:06)
[2017-05-16 11:27] LABS: HEMATOCRIT 33.5 % (41.0-60); HEMOGLOBIN 11.4 gm/dL (12-16); MEAN CELL VOLUME 87.7 fl (81-100); MEAN CORPUSCULAR HEMOGLOBIN 29.9 pg (27.0-31.0); MEAN CORPUSCULAR HGB CONC 34.1 pg (28.0-36.0); MEAN PLATELET VOLUME 6.4 fl; PLATELET COUNT 424 Th/cmm (150-400); RED BLOOD COUNT 3.81 Mil/cmm (3.80-5.20); RED CELL DISTRIBUTION WIDTH 14.2 % (11.5-20.0)
[2017-05-16 11:39] LABS: ANION GAP 12.8 (7.0-16.0); BUN - UREA NITROGEN 17 mg/dL (7-25); CALCIUM SERUM 9.2 mg/dL (8.6-10.3); CARBON DIOXIDE 21.5 mEq/L (21.0-31.0); CHLORIDE 95 mEq/L (98-107); CREATININE - SERUM 0.8 mg/dL (0.6-1.2); GLUCOSE 122 mg/dL (70-105); POTASSIUM SERUM 4.3 mEq/L (3.5-5.1); SODIUM SERUM 125 mEq/L (136-145)
--- NOTE | 2017-05-16 11:39 | General Progress Note ---
Subjective - Review of Systems Service Date: 05/16/17 Subjective: no pain noted denies discomfort Objective - Results Result Diagrams: 05/14/17 12:38 05/14/17 12:38 Recent Labs: Laboratory Last Values WBC 5.2 Th/cmm (4.8-10.8) 05/14/17 12:38 RBC 3.70 Mil/cmm (3.80-5.20) L 05/14/17 12:38 Hgb 11.0 gm/dL (12-16) L 05/14/17 12:38 Hct 32.4 % (41.0-60) L 05/14/17 12:38 MCV 87.6 fl (81-100) 05/14/17 12:38 MCH 29.7 pg (27.0-31.0) 05/14/17 12:38 MCHC Differential 33.9 pg (28.0-36.0) 05/14/17 12:38 RDW 13.7 % (11.5-20.0) 05/14/17 12:38 Plt Count 449 Th/cmm (150-400) H 05/14/17 12:38 MPV 6.4 fl 05/14/17 12:38 Neutrophils % 35.8 % (40.0-80.0) L 05/14/17 12:38 Lymphocytes % 48.1 % (20.0-50.0) 05/14/17 12:38 Monocytes % 10.8 % (2.0-10.0) H 05/14/17 12:38 Eosinophils % 1.4 % (0.0-5.0) 05/14/17 12:38 Basophils % 3.9 % (0.0-2.0) H 05/14/17 12:38 Sodium 123 mEq/L (136-145) L 05/14/17 12:38 Potassium 4.0 mEq/L (3.5-5.1) 05/14/17 12:38 Chloride 91 mEq/L (98-107) L 05/14/17 12:38 Carbon Dioxide 25.0 mEq/L (21.0-31.0) 05/14/17 12:38 Anion Gap 11.0 (7.0-16.0) 05/14/17 12:38 BUN 7 mg/dL (7-25) 05/14/17 12:38 Creatinine 0.7 mg/dL (0.6-1.2) 05/14/17 12:38 Est GFR ( Amer) TNP 05/14/17 12:38 Est GFR (Non-Af Amer) TNP 05/14/17 12:38 BUN/Creatinine Ratio 10.0 05/14/17 12:38 Glucose 97 mg/dL (70-105) 05/14/17 12:38 Calcium 9.4 mg/dL (8.6-10.3) 05/14/17 12:38 Total Bilirubin 0.5 mg/dL (0.3-1.0) 05/14/17 12:38 AST 28 U/L (13-39) 05/14/17 12:38 ALT 11 U/L (7-52) 05/14/17 12:38 Alkaline Phosphatase 67 U/L (34-104) 05/14/17 12:38 Total Protein 7.0 gm/dL (6.0-8.3) 05/14/17 12:38 Albumin 3.7 gm/dL (3.7-5.3) 05/14/17 12:38 Globulin 3.3 gm/dL 05/14/17 12:38 Albumin/Globulin Ratio 1.1 (1.0-1.8) 05/14/17 12:38 Urine Source CLEAN C 05/14/17 12:10 Urine Color YELLOW 05/14/17 12:10 Urine Clarity CLEAR (CLEAR) 05/14/17 12:10 Urine pH 7.0 (4.6 - 8.0) 05/14/17 12:10 Ur Specific [place] 1.010 (1.005-1.030) 05/14/17 12:10 Urine Protein NEGATIVE mg/dL (NEGATIVE) 05/14/17 12:10 Urine Glucose (UA) NEGATIVE mg/dL (NEGATIVE) 05/14/17 12:10 Urine Ketones NEGATIVE mg/dL (NEGATIVE) 05/14/17 12:10 Urine Blood NEGATIVE (NEGATIVE) 05/14/17 12:10 Urine Nitrate NEGATIVE (NEGATIVE) 05/14/17 12:10 Urine Bilirubin NEGATIVE (NEGATIVE) 05/14/17 12:10 Urine Urobilinogen 0.2 E.U./dL (0.2 - 1.0) 05/14/17 12:10 Ur Leukocyte Esterase NEGATIVE (NEGATIVE) 05/14/17 12:10 Urine RBC NONE SEEN /hpf (0-5) 05/14/17 12:10 Urine WBC 0-2 /hpf (0-5) 05/14/17 12:10 Ur Epithelial Cells OCCASIONAL /lpf (FEW) 05/14/17 12:10 Urine Bacteria FEW /hpf (NONE SEEN) 05/14/17 12:10 - Physical Exam Vitals and I&O: Vital Signs Temp 97.5 F 05/16/17 09:02 Pulse 60 05/16/17 09:02 Resp 17 05/16/17 09:02 BP 114/49 05/16/17 09:02 Pulse Ox 94 05/16/17 09:02 Intake & Output 05/15/17 05/16/17 05/16/17 18:59 06:59 18:59 Intake Total 350 200 Balance 350 200 Weight (lbs) 53.161 kg 51.766 kg 51.71 kg Intake: Oral 350 200 Other: # Voids 5 4 # Bowel Movements 1 0 Stool Characteristics Soft Brown Weight Source Bedscale Bedscale Bedscale Active Medications: Current Medications Acetaminophen (Tylenol) 650 mg PO Q4HR PRN PRN Reason: Pain or Fever >101 Stop: 07/13/17 19:12 Amlodipine Besylate (Norvasc) 5 mg PO DAILY [facility] Stop: 07/14/17 08:59 Last Admin: 05/16/17 08:44 Dose: 5 mg Aspirin (Aspirin) 325 mg PO DAILY [facility] Stop: 07/14/17 08:59 Last Admin: 05/16/17 08:44 Dose: 325 mg Cilostazol (Pletal) 100 mg PO BID [facility] Stop: 07/14/17 08:59 Last Admin: 05/16/17 08:06 Dose: 100 mg Cyanocobalamin (Vitamin B12) 1,000 mcg PO DAILY [facility] Stop: 07/14/17 08:59 Last Admin: 05/16/17 08:06 Dose: 1,000 mcg Docusate Sodium (Colace) 100 mg PO DAILY [facility] Stop: 07/14/17 08:59 Last Admin: 05/16/17 08:06 Dose: 100 mg Donepezil HCl (Aricept) 10 mg PO DAILY [facility] Stop: 07/14/17 08:59 Last Admin: 05/16/17 08:06 Dose: 10 mg Escitalopram Oxalate (Lexapro) 5 mg PO HS [facility] PRN Reason: Protocol Stop: 07/13/17 20:59 Last Admin: 05/15/17 21:36 Dose: 5 mg Gabapentin (Neurontin) 300 mg PO TID [facility] Stop: 07/13/17 20:59 Last Admin: 05/16/17 08:06 Dose: 300 mg Lisinopril (Zestril) 5 mg PO DAILY [facility] Stop: 07/14/17 08:59 Last Admin: 05/16/17 08:06 Dose: 5 mg Magnesium Hydroxide (Milk Of Magnesia) 30 ml PO HS PRN PRN Reason: Constipation Stop: 07/13/17 19:12 Methylprednisolone Sodium Succinate (Solu-Medrol) 125 mg IVP Q6H [facility] Stop: 07/13/17 20:59 Last Admin: 05/16/17 11:20 Dose: 125 mg Pantoprazole Sodium (Protonix) 40 mg PO DAILY [facility] Stop: 07/14/17 08:59 Last Admin: 05/16/17 08:06 Dose: 40 mg Sodium Chloride (Nacl Tab) 1 gm PO BID [facility] Stop: 07/14/17 08:59 Last Admin: 05/15/17 16:49 Dose: 1 gm Tramadol HCl (Ultram) 50 mg PO Q6HR PRN PRN Reason: Pain (Moderate) Stop: 07/13/17 19:54 Last Admin: 05/15/17 14:59 Dose: 50 mg Assessment/Plan - Problem List Patient Problems: All Active Problems RIGHT FACIAL AND LIP SWELLING (Acute)
[2017-05-16 11:46] LABS: MANUAL DIFF REQUIRED? YES; WHITE BLOOD COUNT 12.1 Th/cmm (4.8-10.8)
[2017-05-16 12:02] LABS: BAND NEUTROPHILE 2 % (0-10); LYMPHOCYTE 15 % (20-50); MONOCYTE 2 % (2-10); NEUTROPHILS 81 % (40-80); TOTAL CELLS COUNTED 100
[2017-05-16] MEDS: Sodium Chloride 0.9% 1,000 ML IV SCH (15:03)
--- NOTE | 2017-05-16 15:06 | Infectious Disease Prog Note ---
Infectious Disease Subjective - Review of Systems Service Date: 05/16/17 Subjective: Upper lip swelling has resolved. no fever. Infectious Disease Objective - Results Result Diagrams: 05/16/17 11:15 05/16/17 11:15 Recent Labs: Laboratory Last Values WBC 12.1 Th/cmm (4.8-10.8) H 05/16/17 11:15 RBC 3.81 Mil/cmm (3.80-5.20) 05/16/17 11:15 Hgb 11.4 gm/dL (12-16) L 05/16/17 11:15 Hct 33.5 % (41.0-60) L 05/16/17 11:15 MCV 87.7 fl (81-100) 05/16/17 11:15 MCH 29.9 pg (27.0-31.0) 05/16/17 11:15 MCHC Differential 34.1 pg (28.0-36.0) 05/16/17 11:15 RDW 14.2 % (11.5-20.0) 05/16/17 11:15 Plt Count 424 Th/cmm (150-400) H 05/16/17 11:15 MPV 6.4 fl 05/16/17 11:15 Neutrophils % 35.8 % (40.0-80.0) L 05/14/17 12:38 Band Neutrophils % 2 % (0-10) 05/16/17 11:15 Lymphocytes % 48.1 % (20.0-50.0) 05/14/17 12:38 Monocytes % 10.8 % (2.0-10.0) H 05/14/17 12:38 Eosinophils % 1.4 % (0.0-5.0) 05/14/17 12:38 Basophils % 3.9 % (0.0-2.0) H 05/14/17 12:38 Neutrophils (Manual) 81 % (40-80) H 05/16/17 11:15 Lymphocytes 15 % (20-50) L 05/16/17 11:15 Monocytes 2 % (2-10) 05/16/17 11:15 Sodium 125 mEq/L (136-145) L 05/16/17 11:15 Potassium 4.3 mEq/L (3.5-5.1) 05/16/17 11:15 Chloride 95 mEq/L (98-107) L 05/16/17 11:15 Carbon Dioxide 21.5 mEq/L (21.0-31.0) 05/16/17 11:15 Anion Gap 12.8 (7.0-16.0) 05/16/17 11:15 BUN 17 mg/dL (7-25) 05/16/17 11:15 Creatinine 0.8 mg/dL (0.6-1.2) 05/16/17 11:15 Est GFR ( Amer) TNP 05/16/17 11:15 Est GFR (Non-Af Amer) TNP 05/16/17 11:15 BUN/Creatinine Ratio 21.3 05/16/17 11:15 Glucose 122 mg/dL (70-105) H 05/16/17 11:15 Calcium 9.2 mg/dL (8.6-10.3) 05/16/17 11:15 Total Bilirubin 0.5 mg/dL (0.3-1.0) 05/14/17 12:38 AST 28 U/L (13-39) 05/14/17 12:38 ALT 11 U/L (7-52) 05/14/17 12:38 Alkaline Phosphatase 67 U/L (34-104) 05/14/17 12:38 Total Protein 7.0 gm/dL (6.0-8.3) 05/14/17 12:38 Albumin 3.7 gm/dL (3.7-5.3) 05/14/17 12:38 Globulin 3.3 gm/dL 05/14/17 12:38 Albumin/Globulin Ratio 1.1 (1.0-1.8) 05/14/17 12:38 Urine Source CLEAN C 05/14/17 12:10 Urine Color YELLOW 05/14/17 12:10 Urine Clarity CLEAR (CLEAR) 05/14/17 12:10 Urine pH 7.0 (4.6 - 8.0) 05/14/17 12:10 Ur Specific [place] 1.010 (1.005-1.030) 05/14/17 12:10 Urine Protein NEGATIVE mg/dL (NEGATIVE) 05/14/17 12:10 Urine Glucose (UA) NEGATIVE mg/dL (NEGATIVE) 05/14/17 12:10 Urine Ketones NEGATIVE mg/dL (NEGATIVE) 05/14/17 12:10 Urine Blood NEGATIVE (NEGATIVE) 05/14/17 12:10 Urine Nitrate NEGATIVE (NEGATIVE) 05/14/17 12:10 Urine Bilirubin NEGATIVE (NEGATIVE) 05/14/17 12:10 Urine Urobilinogen 0.2 E.U./dL (0.2 - 1.0) 05/14/17 12:10 Ur Leukocyte Esterase NEGATIVE (NEGATIVE) 05/14/17 12:10 Urine RBC NONE SEEN /hpf (0-5) 05/14/17 12:10 Urine WBC 0-2 /hpf (0-5) 05/14/17 12:10 Ur Epithelial Cells OCCASIONAL /lpf (FEW) 05/14/17 12:10 Urine Bacteria FEW /hpf (NONE SEEN) 05/14/17 12:10 - Physical Exam Vitals and I&O: Vital Signs Temp 97.6 F 05/16/17 12:04 Pulse 61 05/16/17 12:04 Resp 18 05/16/17 12:04 BP 125/62 05/16/17 12:04 Pulse Ox 95 05/16/17 12:04 Intake & Output 05/15/17 05/16/17 05/16/17 18:59 06:59 18:59 Intake Total 350 200 Balance 350 200 Weight (lbs) 53.161 kg 51.766 kg 51.71 kg Intake: Oral 350 200 Other: # Voids 5 4 # Bowel Movements 1 0 Stool Characteristics Soft Brown Weight Source Bedscale Bedscale Bedscale Active Medications: Current Medications Acetaminophen (Tylenol) 650 mg PO Q4HR PRN PRN Reason: Pain or Fever >101 Stop: 07/13/17 19:12 Amlodipine Besylate (Norvasc) 5 mg PO DAILY [facility] Stop: 07/14/17 08:59 Last Admin: 05/16/17 08:44 Dose: 5 mg Aspirin (Aspirin) 325 mg PO DAILY [facility] Stop: 07/14/17 08:59 Last Admin: 05/16/17 08:44 Dose: 325 mg Cilostazol (Pletal) 100 mg PO BID [facility] Stop: 07/14/17 08:59 Last Admin: 05/16/17 08:06 Dose: 100 mg Cyanocobalamin (Vitamin B12) 1,000 mcg PO DAILY [facility] Stop: 07/14/17 08:59 Last Admin: 05/16/17 08:06 Dose: 1,000 mcg Docusate Sodium (Colace) 100 mg PO DAILY [facility] Stop: 07/14/17 08:59 Last Admin: 05/16/17 08:06 Dose: 100 mg Donepezil HCl (Aricept) 10 mg PO DAILY [facility] Stop: 07/14/17 08:59 Last Admin: 05/16/17 08:06 Dose: 10 mg Escitalopram Oxalate (Lexapro) 5 mg PO HS [facility] PRN Reason: Protocol Stop: 07/13/17 20:59 Last Admin: 05/15/17 21:36 Dose: 5 mg Gabapentin (Neurontin) 300 mg PO TID [facility] Stop: 07/13/17 20:59 Last Admin: 05/16/17 08:06 Dose: 300 mg Sodium Chloride (Nacl 0.9%) 1,000 mls @ 100 mls/hr IV .Q10H [facility] Stop: 07/15/17 12:59 Last Admin: 05/16/17 15:03 Dose: 100 mls/hr Lisinopril (Zestril) 5 mg PO DAILY [facility] Stop: 07/14/17 08:59 Last Admin: 05/16/17 08:06 Dose: 5 mg Magnesium Hydroxide (Milk Of Magnesia) 30 ml PO HS PRN PRN Reason: Constipation Stop: 07/13/17 19:12 Methylprednisolone Sodium Succinate (Solu-Medrol) 125 mg IVP Q6H [facility] Stop: 07/13/17 20:59 Last Admin: 05/16/17 11:20 Dose: 125 mg Pantoprazole Sodium (Protonix) 40 mg PO DAILY [facility] Stop: 07/14/17 08:59 Last Admin: 05/16/17 08:06 Dose: 40 mg Sodium Chloride (Nacl Tab) 1 gm PO BID [facility] Stop: 07/14/17 08:59 Last Admin: 05/16/17 11:48 Dose: 1 gm Tramadol HCl (Ultram) 50 mg PO Q6HR PRN PRN Reason: Pain (Moderate) Stop: 07/13/17 19:54 Last Admin: 05/15/17 14:59 Dose: 50 mg General: no acute distress, well developed, well nourished HEENT: atraumatic, normocephalic, EOMI Neck: supple, no thyromegaly, no rigid Cardiovascular: S1S2, regular Lungs: clear to auscultation bilaterally, clear to percussion Abdomen: soft, no tender, no distended, no mass Extremities: no cyanosis, no clubbing, no edema Neurological: awake, alert, oriented, CN 2-12 intact Skin: intact Infectious Disease Assmt/Plan - Problem List Patient Problems: All Active Problems RIGHT FACIAL AND LIP SWELLING (Acute) - Assessment Assessment: 1. Upper lip swelling, ?Angioedema. resolved. 2. Depression. 3. leukocytosis, reactive. - Plan Plan: Dc planning.
[2017-05-16] MEDS: Escitalopram Oxalate 5 mg Tab PO SCH (20:34)
[2017-05-17] MEDS: Sodium Chloride 0.9% 1,000 ML IV SCH (01:17)
[2017-05-17 05:27] LABS: % EOSINOPHILS 0.1 % (0.0-5.0); % LYMPHOCYTES 12.5 % (20.0-50.0); % MONOCYTES 3.4 % (2.0-10.0); HEMATOCRIT 31.3 % (41.0-60); HEMOGLOBIN 10.8 gm/dL (12-16); LYMPHOCYTE ABSOLUTE 1.5 Th/cmm (1.5-3.0); MEAN CELL VOLUME 87.8 fl (81-100); MEAN CORPUSCULAR HEMOGLOBIN 30.1 pg (27.0-31.0); MEAN CORPUSCULAR HGB CONC 34.3 pg (28.0-36.0); MEAN PLATELET VOLUME 6.9 fl; MONOCYTE ABSOLUTE 0.4 Th/cmm (0.3-1.0); NEUTROPHILE ABSOLUTE 9.9 Th/cmm (1.8-8.0); PLATELET COUNT 345 Th/cmm (150-400); RED BLOOD COUNT 3.57 Mil/cmm (3.80-5.20); RED CELL DISTRIBUTION WIDTH 14.1 % (11.5-20.0); WHITE BLOOD COUNT 11.8 Th/cmm (4.8-10.8)
[2017-05-17 05:45] LABS: ALB/GLOB RATIO 1.2 (1.0-1.8); ALBUMIN 3.5 gm/dL (3.7-5.3); ALKALINE PHOSPHATASE 58 U/L (34-104); ANION GAP 10.5 (7.0-16.0); BILIRUBIN,TOTAL 0.4 mg/dL (0.3-1.0); BUN - UREA NITROGEN 18 mg/dL (7-25); CALCIUM SERUM 8.6 mg/dL (8.6-10.3); CARBON DIOXIDE 21.7 mEq/L (21.0-31.0); CHLORIDE 98 mEq/L (98-107); CREATININE - SERUM 0.6 mg/dL (0.6-1.2); GLUCOSE 116 mg/dL (70-105); POTASSIUM SERUM 4.2 mEq/L (3.5-5.1); SGOT 24 U/L (13-39); SGPT/ALT 11 U/L (7-52); SODIUM SERUM 126 mEq/L (136-145); TOTAL PROTEIN,SERUM 6.5 gm/dL (6.0-8.3)
--- NOTE | 2017-05-17 08:17 | Progress Notes ---
DATE: 05/17/2017 SUBJECTIVE: Chart reviewed and the patient interviewed. Also discussed the patient's condition with the staff and reviewed records and labs. The patient is still agitated and restless. The patient also is unable to follow directions easily and she seems to be more irritable today. She also seems to be suspicious and paranoid. The patient also asking to go home while she has no safe plan for self care. ASSESSMENT: The patient seems to be more agitated and irritable today. TREATMENT PLAN: We will add Seroquel in a dose of 25 mg at bedtime. Also, continue Lexapro in a dose of 5 mg everyday and we will continue to follow up. [facility]# [id number]
[2017-05-17] MEDS: Pantoprazole 40 mg EC Tab PO SCH (09:09)
--- NOTE | 2017-05-17 14:28 | Infectious Disease Prog Note ---
Infectious Disease Subjective - Review of Systems Service Date: 05/17/17 Subjective: Upper lip swelling has resolved. no fever. Infectious Disease Objective - Results Result Diagrams: 05/17/17 04:50 05/17/17 04:50 Recent Labs: Laboratory Last Values WBC 11.8 Th/cmm (4.8-10.8) H 05/17/17 04:50 RBC 3.57 Mil/cmm (3.80-5.20) L 05/17/17 04:50 Hgb 10.8 gm/dL (12-16) L 05/17/17 04:50 Hct 31.3 % (41.0-60) L 05/17/17 04:50 MCV 87.8 fl (81-100) 05/17/17 04:50 MCH 30.1 pg (27.0-31.0) 05/17/17 04:50 MCHC Differential 34.3 pg (28.0-36.0) 05/17/17 04:50 RDW 14.1 % (11.5-20.0) 05/17/17 04:50 Plt Count 345 Th/cmm (150-400) 05/17/17 04:50 MPV 6.9 fl 05/17/17 04:50 Neutrophils % 84.0 % (40.0-80.0) H 05/17/17 04:50 Band Neutrophils % 2 % (0-10) 05/16/17 11:15 Lymphocytes % 12.5 % (20.0-50.0) L 05/17/17 04:50 Monocytes % 3.4 % (2.0-10.0) 05/17/17 04:50 Eosinophils % 0.1 % (0.0-5.0) 05/17/17 04:50 Basophils % 0.0 % (0.0-2.0) 05/17/17 04:50 Neutrophils (Manual) 81 % (40-80) H 05/16/17 11:15 Lymphocytes 15 % (20-50) L 05/16/17 11:15 Monocytes 2 % (2-10) 05/16/17 11:15 Sodium 126 mEq/L (136-145) L 05/17/17 04:50 Potassium 4.2 mEq/L (3.5-5.1) 05/17/17 04:50 Chloride 98 mEq/L (98-107) 05/17/17 04:50 Carbon Dioxide 21.7 mEq/L (21.0-31.0) 05/17/17 04:50 Anion Gap 10.5 (7.0-16.0) 05/17/17 04:50 BUN 18 mg/dL (7-25) 05/17/17 04:50 Creatinine 0.6 mg/dL (0.6-1.2) 05/17/17 04:50 Est GFR ( Amer) TNP 05/17/17 04:50 Est GFR (Non-Af Amer) TNP 05/17/17 04:50 BUN/Creatinine Ratio 30.0 05/17/17 04:50 Glucose 116 mg/dL (70-105) H 05/17/17 04:50 Calcium 8.6 mg/dL (8.6-10.3) 05/17/17 04:50 Total Bilirubin 0.4 mg/dL (0.3-1.0) 05/17/17 04:50 AST 24 U/L (13-39) 05/17/17 04:50 ALT 11 U/L (7-52) 05/17/17 04:50 Alkaline Phosphatase 58 U/L (34-104) 05/17/17 04:50 Total Protein 6.5 gm/dL (6.0-8.3) 05/17/17 04:50 Albumin 3.5 gm/dL (3.7-5.3) L 05/17/17 04:50 Globulin 3.0 gm/dL 05/17/17 04:50 Albumin/Globulin Ratio 1.2 (1.0-1.8) 05/17/17 04:50 Urine Source CLEAN C 05/14/17 12:10 Urine Color YELLOW 05/14/17 12:10 Urine Clarity CLEAR (CLEAR) 05/14/17 12:10 Urine pH 7.0 (4.6 - 8.0) 05/14/17 12:10 Ur Specific [place] 1.010 (1.005-1.030) 05/14/17 12:10 Urine Protein NEGATIVE mg/dL (NEGATIVE) 05/14/17 12:10 Urine Glucose (UA) NEGATIVE mg/dL (NEGATIVE) 05/14/17 12:10 Urine Ketones NEGATIVE mg/dL (NEGATIVE) 05/14/17 12:10 Urine Blood NEGATIVE (NEGATIVE) 05/14/17 12:10 Urine Nitrate NEGATIVE (NEGATIVE) 05/14/17 12:10 Urine Bilirubin NEGATIVE (NEGATIVE) 05/14/17 12:10 Urine Urobilinogen 0.2 E.U./dL (0.2 - 1.0) 05/14/17 12:10 Ur Leukocyte Esterase NEGATIVE (NEGATIVE) 05/14/17 12:10 Urine RBC NONE SEEN /hpf (0-5) 05/14/17 12:10 Urine WBC 0-2 /hpf (0-5) 05/14/17 12:10 Ur Epithelial Cells OCCASIONAL /lpf (FEW) 05/14/17 12:10 Urine Bacteria FEW /hpf (NONE SEEN) 05/14/17 12:10 - Physical Exam Vitals and I&O: Vital Signs Temp 97.6 F 05/17/17 13:30 Pulse 58 05/17/17 13:30 Resp 18 05/17/17 13:30 BP 118/53 05/17/17 13:30 Pulse Ox 97 05/17/17 13:30 Intake & Output 05/16/17 05/17/17 05/17/17 18:59 06:59 18:59 Intake Total 1000 500 Balance 1000 500 Weight (lbs) 51.71 kg 57.788 kg 57.788 kg Intake: Intake, IV Amount 1000 Sodium Chloride 0.9% 1, 1000 000 ml @ 100 mls/hr IV . Q10H [facility] Rx#:[id number] Oral 500 Other: # Voids 2 # Bowel Movements 0 Weight Source Bedscale Bedscale Bedscale General: no acute distress, well developed, well nourished HEENT: atraumatic, normocephalic, PERRLA, EOMI Neck: supple, no thyromegaly Cardiovascular: S1S2, regular, systolic murmur Lungs: clear to auscultation bilaterally, clear to percussion Abdomen: soft, no tender, no distended, no hepatomegaly Extremities: no cyanosis, no clubbing, no edema Neurological: awake, alert, oriented Skin: intact Infectious Disease Assmt/Plan - Assessment Assessment: 1. Upper lip swelling, ?Angioedema. resolved. 2. Depression. 3. leukocytosis, reactive. steroid induced. - Plan Plan: Dc planning.
== END 2017-05-17 14:10 | DRG 916 ==
LOC: ER 12:12 → MSI 15:00
PROVIDERS: ADMIT Internal Medicine; ATTEND Internal Medicine
DX: T78.3XXA Angioneurotic edema, initial encounter (principal); F29 Unspecified psychosis not due to a substance or known physiological condition; F03.90 Unspecified dementia, unspecified severity, without behavioral disturbance, psychotic disturbance, mood disturbance, and anxiety; D72.829 Elevated white blood cell count, unspecified; F32.9 Major depressive disorder, single episode, unspecified; Z88.8 Allergy status to other drugs, medicaments and biological substances; Z79.899 Other long term (current) drug therapy; Z79.82 Long term (current) use of aspirin
CPT/HCPCS: 36415-UA; 73560-TC-RT; 80048-TC; 80053-TC; 81001-TC; 85007-TC; 85025-TC; 85027-TC; J2930; J7030; Z7610

== ENCOUNTER 2017-07-25 12:27 | Inpatient (IN) | payer MEDICARE, MEDICAID ==
--- NOTE | 2017-07-25 12:34 | ED Physician Chart ---
ED Chief Complaint/HPI - Patient Information Date Seen:: 07/25/17 Time Seen:: 12:20 Chief Complaint:: AMS History of Present Illness:: onset x one day of AMS, ALOC with abnormal labs this morning; no report of trauma, H/As, neck pain, C/P, SOB, Abd. Pain, A/N/V/D/C, fever, chills, or urinary s/s Allergies:: Allergies Allergy/AdvReac Type Severity Reaction Status Date / Time lovastatin Allergy Verified 03/07/17 18:40 ED Review of Systems - Review of Systems General/Constitutional: No fever, No chills, No weight loss, No weakness, No diaphoresis, No edema, No loss of appetite Skin: No skin lesions, No rash, No bruising Head: No headache, No light-headedness Eyes: No loss of vision, No pain, No diplopia ENT: No earache, No nasal drainage, No sore throat, No tinnitus Neck: No neck pain, No swelling, No thyromegaly, No stiffness, No mass noted Cardio Vascular: No chest pain, No palpitations, No PND, No orthopnea, No edema Pulmonary: SOB, Cough, No sputum, Wheezing GI: No nausea, No vomiting, No diarrhea, No pain, No melena, No hematochezia, No constipation, No hematemesis G/U: No dysuria, No frequency, No hematuria, No nacturia [employer] Ad[employer]er: No vaginal discharge, No abnormal vaginal bleed, No contraction Musculoskeletal: No bone or joint pain, No back pain, No muscle pain Endocrine: No polyuria, No polydipsia Psychiatric: No prior psych history, No depression, No anxiety, No suicidal ideation, No homicidal ideation, No auditory hallucination, No visual hallucination Hematopoietic: No bruising, No lymphadenopathy Allergic/Immuno: No urticaria, No angioedema Neurological: No syncope, No focal symptoms, Weakness, No paresthesia, No headache, No seizure, No dizziness, Confusion, No vertigo ED Past Medical History - Past Medical History Obtainable: Yes Past Medical History: HTN, Asthma/COPD, CVA/TIA, Dyslipidemia, Dementia Family History: Diabetes Melitus, HTN Social History: Smoker, No Alcohol, No Drug Use, , Care Facility Surgical History: None Psychiatricy History: Dementia Medication: Reviewed Family Medical History - Family Member Mother History Unknown: Yes Hx Family Cancer: No Hx Family Hypertension: No Hx Family Stroke: No Hx Family Seizures: No Hx Family Dementia: No Hx Family AIDS: No Hx Family COPD: No ED Physical Exam - Physical Examination General/Constitutional: Awake, Well-developed, well-nourished, Alert, No distress, GCS 15, Non-toxic appearing, Ambulatory Head: Atraumatic Eyes: Lids, conjuctiva normal, PERRL, EOMI Skin: Nl inspection, No rash, No skin lesions, No ecchymosis, Well hydrated, No lymphadenopathy ENMT: External ears, nose nl, TM canals nl, Nasal exam nl, Lips, teeth, gums nl , Oropharynx nl, Tonsils nl Neck: Nontender, Full ROM w/o pain, No JVD, No nuchal rigidity, No bruit, No mass, No stridor Respiratory: Nl effort/Exclusion, Clear to Auscultation, No Wheeze/Rhonchi/Rales Cardio Vascular: RRR, No murmur, gallop, rubs, NL S1 S2, Carotid/Femoral/Distal pulses equal bilaterally GI: No tenderness/rebounding/guarding, No organomegaly, No hernia, Normal BS's, Nondistended, No mass/bruits, No McBurney tenderness : No CVA tenderness Extremities: No tenderness or effusion, Full ROM, normal strength in all extremities, No edema, Normal digits & nails Neuro/Psych: Alert/oriented, DTR's symmetric, Normal sensory exam, Normal motor strength, Judgement/insight normal, Mood normal, Normal gait, No focal deficits Other Neuro/Psych comments:: Disoriented and Confused Misc: Normal back, No paraspinal tenderness ED Labs/Radiology/EKG Results - Lab Results Comments:: H/H: + Anemia; WBC: 3.9; Na+: 123; Cl: 92 - Radiology Results Comments:: NAD - EKG Interpretations EKG Time:: 13:03 Rate & Rhythm: 72; NSR Comments:: RBBB; non-specific st-t changes ED Septic Shock - . Is Septic Shock (SBP<90, OR Lactate>4 mmol\L) present?: No ED Reassessment (Disposition) - Reassessment Reassessment Condition:: Improved - Diagnosis Diagnosis:: Dx: Hyponatremia; Anemia; Leukopenia - Aftercare/Follow up Instructions Aftercare/Follow-Up Instructions:: Counseled pt regarding lab results/diagnosis & need follow up, Counseled pt & family regarding lab results/diagnosis & need follow up - Patient Disposition Discharge/Transfer:: Acute Care w/in this hosp Accepting Physician:: Dr. Hernandez Time Called:: 1410 Time Responded:: 14:10 Admitted to:: Med/Surg Spoke to:: Dr. Hernandez Admitting Medical Physician:: Dr. Hernandez Condition at Disposition:: Stable, Improved
[2017-07-25 13:14] LABS: % BASOPHILS 0.6 % (0.0-2.0); % EOSINOPHILS 0.5 % (0.0-5.0); % LYMPHOCYTES 45.6 % (20.0-50.0); % MONOCYTES 11.9 % (2.0-10.0); % NEUTROPHILS 41.4 % (40.0-80.0); HEMATOCRIT 34.2 % (41.0-60); HEMOGLOBIN 11.6 gm/dL (12-16); LYMPHOCYTE ABSOLUTE 1.8 Th/cmm (1.5-3.0); MEAN CORPUSCULAR HEMOGLOBIN 30.1 pg (27.0-31.0); MEAN CORPUSCULAR HGB CONC 33.8 pg (28.0-36.0); MEAN PLATELET VOLUME 6.1 fl; MONOCYTE ABSOLUTE 0.5 Th/cmm (0.3-1.0); NEUTROPHILE ABSOLUTE 1.6 Th/cmm (1.8-8.0); PLATELET COUNT 373 Th/cmm (150-400); RED BLOOD COUNT 3.84 Mil/cmm (3.80-5.20); RED CELL DISTRIBUTION WIDTH 14.3 % (11.5-20.0)
[2017-07-25 13:18] LABS: WHITE BLOOD COUNT 3.9 Th/cmm (4.8-10.8)
[2017-07-25 13:22] LABS: INR 0.95 (0.5-1.4); PROTHROMBIN TIME (TEST) 9.9 SECONDS (9.5-11.5)
[2017-07-25 13:25] LABS: ALB/GLOB RATIO 1.5 (1.0-1.8); ALBUMIN 4.2 gm/dL (3.7-5.3); ALKALINE PHOSPHATASE 64 U/L (34-104); ANION GAP 11.6 (7.0-16.0); BILIRUBIN,TOTAL 0.7 mg/dL (0.3-1.0); BUN - UREA NITROGEN 10 mg/dL (7-25); CALCIUM SERUM 9.2 mg/dL (8.6-10.3); CARBON DIOXIDE 23.5 mEq/L (21.0-31.0); CHLORIDE 92 mEq/L (98-107); CREATININE - SERUM 0.7 mg/dL (0.6-1.2); CREATININE KINASE 201 U/L (30-223); GLUCOSE 105 mg/dL (70-105); POTASSIUM SERUM 4.1 mEq/L (3.5-5.1); SGOT 43 U/L (13-39); SGPT/ALT 19 U/L (7-52); SODIUM SERUM 123 mEq/L (136-145)
--- NOTE | 2017-07-25 13:35 | Diagnostic Imaging Report ---
CHEST X-RAY: AP view INDICATION: pain COMPARISON: 03/14/2017 FINDINGS: Increased interstitial lung markings are noted. There is no focal consolidation or pleural effusions cardiomegaly is noted. Atherosclerosis is noted. Degenerative changes of the spine are noted with partially visualized postsurgical changes of lumbar spine. Gas-filled loops of bowel of the upper abdomen are noted. IMPRESSION: Increased interstitial lung markings, nonspecific and may be due to chronic lung changes versus less likely a marginal degree of congestion. No focal consolidation identified. Clinical correlation is recommended. Cardiomegaly and atherosclerotic vascular disease.
[2017-07-25 18:33] LABS: URINE MICROSCOPIC INDICATED? YES; URINE SOURCE MIDSTREAM
[2017-07-25 18:34] LABS: URINE BILIRUBIN NEGATIVE (NEGATIVE); URINE BLOOD NEGATIVE (NEGATIVE); URINE GLUCOSE (UA) NEGATIVE (NEGATIVE); URINE KETONE NEGATIVE (NEGATIVE); URINE LEUKOCYTE ESTERASE NEGATIVE (NEGATIVE); URINE NITRATE NEGATIVE (NEGATIVE); URINE PROTEIN NEGATIVE (NEGATIVE); URINE UROBILINOGEN 0.2 E.U./dL (0.2 - 1.0)
[2017-07-25 18:44] VITALS: BP 125/72
[2017-07-25] MEDS ORDERED: Albuterol Nebulizer 2.5mg/3mL HHN PRN (19:04)
[2017-07-25] MEDS ORDERED: Guaifenesin DM 10 ML UDC PO PRN (19:04)
[2017-07-25] MEDS ORDERED: Magnesium Hydroxide (MOM) 30 mL UDC PO PRN (19:04)
[2017-07-25 19:33] LABS: URINE CLARITY CLEAR (CLEAR); URINE COLOR YELLOW
[2017-07-25] MEDS: Sodium Chloride 0.9% 1,000 ML IV SCH (19:33)
[2017-07-25 19:34] LABS: URINE BACTERIA NONE SEEN /hpf (NONE SEEN); URINE EPITHELIAL CELLS NONE SEEN /lpf (FEW); URINE RBC NONE SEEN /hpf (0-5); URINE WBC NONE SEEN /hpf (0-5)
[2017-07-25] MEDS: Albuterol Nebulizer 2.5mg/3mL HHN SCH ×2 (19:39→23:49)
[2017-07-25] MEDS: Escitalopram Oxalate 5 mg Tab PO SCH (21:30)
--- NOTE | 2017-07-25 22:44 | History & Physical ---
ADMIT DATE: 07/25/2017 HISTORY OF PRESENT ILLNESS: The patient came from the [facility]. Apparently, the patient has been complaining of weakness. She had labs done, which showed sodium of 120, and the patient known to have history of hyponatremia, has been on the salt, the patient was in spite of it, her sodium was very, very low. The patient is complaining of severe weakness. The patient is known to have history of asthma, history of COPD, history of CVA, hyperlipidemia, and dementia. The patient had no fever, no chills, no rigors. REVIEW OF SYSTEMS: Otherwise negative. PAST PSYCHIATRIC HISTORY: Dementia and history of agitation. PHYSICAL EXAMINATION: HEAD: Normal. ENT: Normal. NECK: Supple, nontender. LUNGS: Clear. CARDIOVASCULAR SYSTEM: S1, S2 heard. ABDOMEN: Soft. Bowel sounds are heard. CENTRAL NERVOUS SYSTEM: Decreased sensorium. DIAGNOSES: Severe anemia, low white count, leukopenia, hyponatremia, electrolyte imbalance, history of chronic obstructive pulmonary disease, history of asthma, and history of CVA, transient ischemic attack in the past, history of hypertension, dementia, and encephalopathy. PLAN: The patient is being admitted. I will go ahead and do a workup and correct her sodium. We will have Dr. Karl Vallejo and Dr. Fry see the patient and I will also see the patient. JOB# [id number]
[2017-07-26] MEDS: Guaifenesin DM 10 ML UDC PO SCH ×6 (01:44→20:20)
[2017-07-26] MEDS: Albuterol Nebulizer 2.5mg/3mL HHN SCH ×6 (02:52→22:56)
[2017-07-26] MEDS: Sodium Chloride 0.9% 1,000 ML IV SCH ×2 (04:09→16:46)
[2017-07-26 08:50] LABS: % BASOPHILS 0.4 % (0.0-2.0); % EOSINOPHILS 0.5 % (0.0-5.0); % LYMPHOCYTES 46.7 % (20.0-50.0); % MONOCYTES 10.7 % (2.0-10.0); % NEUTROPHILS 41.7 % (40.0-80.0); HEMATOCRIT 36.7 % (41.0-60); HEMOGLOBIN 12.2 gm/dL (12-16); LYMPHOCYTE ABSOLUTE 1.7 Th/cmm (1.5-3.0); MEAN CELL VOLUME 88.1 fl (81-100); MEAN CORPUSCULAR HEMOGLOBIN 29.4 pg (27.0-31.0); MEAN CORPUSCULAR HGB CONC 33.3 pg (28.0-36.0); MEAN PLATELET VOLUME 6.4 fl; MONOCYTE ABSOLUTE 0.4 Th/cmm (0.3-1.0); NEUTROPHILE ABSOLUTE 1.5 Th/cmm (1.8-8.0); PLATELET COUNT 385 Th/cmm (150-400); RED BLOOD COUNT 4.17 Mil/cmm (3.80-5.20); RED CELL DISTRIBUTION WIDTH 14.2 % (11.5-20.0)
[2017-07-26 08:54] LABS: WHITE BLOOD COUNT 3.6 Th/cmm (4.8-10.8)
[2017-07-26] MEDS ORDERED: Pantoprazole 40 mg EC Tab PO SCH (09:00)
[2017-07-26 09:18] LABS: ANION GAP 13.1 (7.0-16.0); BUN - UREA NITROGEN 8 mg/dL (7-25); CALCIUM SERUM 9.4 mg/dL (8.6-10.3); CARBON DIOXIDE 23.6 mEq/L (21.0-31.0); CHLORIDE 99 mEq/L (98-107); CREATININE - SERUM 0.6 mg/dL (0.6-1.2); GLUCOSE 149 mg/dL (70-105); POTASSIUM SERUM 3.7 mEq/L (3.5-5.1); SODIUM SERUM 132 mEq/L (136-145)
--- NOTE | 2017-07-26 17:55 | History & Physical ---
ADMIT DATE: 07/26/2017 HEMATOLOGY ONCOLOGY CONSULTATION REFERRING PHYSICIAN: Dr. Hernandez. REASON FOR CONSULTATION: Leukopenia. HISTORY OF PRESENT ILLNESS: The patient is a 76-year-old female who was admitted with extreme weakness and found to have hyponatremia and leukopenia. She is followed by aircraft painter for the hyponatremia and I was asked to evaluate from the leukopenia standpoint. The WBC today is 3.6, hemoglobin 12.2, platelets 385. Coagulation panel normal. Lopez chemistry, normal creatinine and liver functions and bilirubin, AST slightly elevated. Albumin 4.2. PAST MEDICAL HISTORY: COPD, CVA, asthma, dyslipidemia, dementia. MEDICATIONS: Reviewed. SOCIAL HISTORY: [facility] resident. PHYSICAL EXAMINATION: GENERAL: The patient is awake, communicative, but does not give much information. VITAL SIGNS: Stable. HEENT: Atraumatic. NECK: No lymphadenopathy. CHEST: Clear. ABDOMEN: Soft. No organomegaly. EXTREMITIES: Deformities in both knees and feet. LABORATORY DATA: White count 3.6, hemoglobin 12.2, platelets 385. Chemistry unremarkable. Slight elevation of the AST. ASSESSMENT: Mild leukopenia. No associated neutropenia are as stated his symptoms duration is unknown. I will obtain abdominal ultrasound to evaluate liver and spleen and B12 and folate level and ALIA. Repeat CBC. 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 Thank you, Dr. Hernandez, for the opportunity to participate in the care of this interesting case. JOB# [id number]
[2017-07-26] MEDS: Escitalopram Oxalate 5 mg Tab PO SCH (20:22)
--- NOTE | 2017-07-26 22:26 | General Progress Note ---
Subjective - Review of Systems Service Date: 07/26/17 Subjective: patient awake feels weak Objective - Results Result Diagrams: 07/26/17 08:20 07/26/17 08:20 Recent Labs: Laboratory Last Values WBC 3.6 Th/cmm (4.8-10.8) L 07/26/17 08:20 RBC 4.17 Mil/cmm (3.80-5.20) 07/26/17 08:20 Hgb 12.2 gm/dL (12-16) 07/26/17 08:20 Hct 36.7 % (41.0-60) L 07/26/17 08:20 MCV 88.1 fl (81-100) 07/26/17 08:20 MCH 29.4 pg (27.0-31.0) 07/26/17 08:20 MCHC Differential 33.3 pg (28.0-36.0) 07/26/17 08:20 RDW 14.2 % (11.5-20.0) 07/26/17 08:20 Plt Count 385 Th/cmm (150-400) 07/26/17 08:20 MPV 6.4 fl 07/26/17 08:20 Neutrophils % 41.7 % (40.0-80.0) 07/26/17 08:20 Lymphocytes % 46.7 % (20.0-50.0) 07/26/17 08:20 Monocytes % 10.7 % (2.0-10.0) H 07/26/17 08:20 Eosinophils % 0.5 % (0.0-5.0) 07/26/17 08:20 Basophils % 0.4 % (0.0-2.0) 07/26/17 08:20 PT 9.9 SECONDS (9.5-11.5) 07/25/17 13:00 INR 0.95 (0.5-1.4) 07/25/17 13:00 PTT (Actin FS) 21.9 SECONDS (26.0-38.0) L 07/25/17 13:00 Sodium 132 mEq/L (136-145) L 07/26/17 08:20 Potassium 3.7 mEq/L (3.5-5.1) 07/26/17 08:20 Chloride 99 mEq/L (98-107) 07/26/17 08:20 Carbon Dioxide 23.6 mEq/L (21.0-31.0) 07/26/17 08:20 Anion Gap 13.1 (7.0-16.0) 07/26/17 08:20 BUN 8 mg/dL (7-25) 07/26/17 08:20 Creatinine 0.6 mg/dL (0.6-1.2) 07/26/17 08:20 Est GFR ( Amer) TNP 07/26/17 08:20 Est GFR (Non-Af Amer) TNP 07/26/17 08:20 BUN/Creatinine Ratio 13.3 07/26/17 08:20 Glucose 149 mg/dL (70-105) H 07/26/17 08:20 Whole Bld Lactic Acid 0.60 mmol/L (0.60-1.99) 07/25/17 13:00 Calcium 9.4 mg/dL (8.6-10.3) 07/26/17 08:20 Total Bilirubin 0.7 mg/dL (0.3-1.0) 07/25/17 13:00 AST 43 U/L (13-39) H 07/25/17 13:00 ALT 19 U/L (7-52) 07/25/17 13:00 Alkaline Phosphatase 64 U/L (34-104) 07/25/17 13:00 Creatine Kinase 201 U/L (30-223) 07/25/17 13:00 Troponin I < 0.01 ng/mL (0.01-0.05) L 07/25/17 13:00 Total Protein 7.0 gm/dL (6.0-8.3) 07/25/17 13:00 Albumin 4.2 gm/dL (3.7-5.3) 07/25/17 13:00 Globulin 2.8 gm/dL 07/25/17 13:00 Albumin/Globulin Ratio 1.5 (1.0-1.8) 07/25/17 13:00 Urine Source MIDSTREAM 07/25/17 18:25 Urine Color YELLOW 07/25/17 18:25 Urine Clarity CLEAR (CLEAR) 07/25/17 18:25 Urine pH 7.0 (4.6 - 8.0) 07/25/17 18:25 Ur Specific [place] 1.010 (1.005-1.030) 07/25/17 18:25 Urine Protein NEGATIVE mg/dL (NEGATIVE) 07/25/17 18:25 Urine Glucose (UA) NEGATIVE mg/dL (NEGATIVE) 07/25/17 18:25 Urine Ketones NEGATIVE mg/dL (NEGATIVE) 07/25/17 18:25 Urine Blood NEGATIVE (NEGATIVE) 07/25/17 18:25 Urine Nitrate NEGATIVE (NEGATIVE) 07/25/17 18:25 Urine Bilirubin NEGATIVE (NEGATIVE) 07/25/17 18:25 Urine Urobilinogen 0.2 E.U./dL (0.2 - 1.0) 07/25/17 18:25 Ur Leukocyte Esterase NEGATIVE (NEGATIVE) 07/25/17 18:25 Urine RBC NONE SEEN /hpf (0-5) 07/25/17 18:25 Urine WBC NONE SEEN /hpf (0-5) 07/25/17 18:25 Ur Epithelial Cells NONE SEEN /lpf (FEW) 07/25/17 18:25 Urine Bacteria NONE SEEN /hpf (NONE SEEN) 07/25/17 18:25 - Physical Exam Vitals and I&O: Vital Signs Temp 97.2 F 07/26/17 20:00 Pulse 69 07/26/17 20:00 Resp 18 07/26/17 20:00 BP 105/54 07/26/17 20:00 Pulse Ox 100 07/26/17 20:00 Intake & Output 07/26/17 07/26/17 07/27/17 06:59 18:59 06:59 Intake Total 1360 2250 Balance 1360 2250 Weight (lbs) 63.985 kg 64.047 kg Intake: Intake, IV Amount 860 1000 Sodium Chloride 0.9% 1, 860 1000 000 ml @ 100 mls/hr IV . Q10H [facility] Rx#:[id number] Oral 500 1250 Other: # Voids 1 4 # Bowel Movements 0 1 Stool Characteristics Soft Weight Source Patient stated Bedscale Active Medications: Current Medications Acetaminophen (Tylenol) 650 mg PO Q4HR PRN PRN Reason: Pain or Fever >101 Stop: 09/23/17 19:03 Albuterol Sulfate (Albuterol 2.5mg/3ml Neb Ud) 2.5 mg HHN Q4HRT [facility] Stop: 09/23/17 18:59 Last Admin: 07/26/17 19:37 Dose: 2.5 mg Albuterol Sulfate (Albuterol 2.5mg/3ml Neb Ud) 2.5 mg HHN Q4HR PRN PRN Reason: cough/wheeze Stop: 09/23/17 19:03 Amlodipine Besylate (Norvasc) 5 mg PO DAILY [facility] Stop: 09/24/17 08:59 Last Admin: 07/26/17 08:15 Dose: 5 mg Aspirin (Aspirin) 325 mg PO DAILY [facility] Stop: 09/24/17 08:59 Last Admin: 07/26/17 08:15 Dose: 325 mg Cilostazol (Pletal) 100 mg PO BID [facility] Stop: 09/24/17 08:59 Last Admin: 07/26/17 16:47 Dose: 100 mg Cyanocobalamin (Vitamin B12) 1,000 mcg PO DAILY [facility] Stop: 09/24/17 08:59 Last Admin: 07/26/17 08:15 Dose: 1,000 mcg Docusate Sodium (Colace) 100 mg PO DAILY [facility] Stop: 09/24/17 08:59 Last Admin: 07/26/17 08:15 Dose: 100 mg Donepezil HCl (Aricept) 10 mg PO DAILY [facility] Stop: 09/24/17 08:59 Last Admin: 07/26/17 08:15 Dose: 10 mg Escitalopram Oxalate (Lexapro) 5 mg PO HS [facility]; Protocol Stop: 09/23/17 20:59 Last Admin: 07/26/17 20:22 Dose: 5 mg Gabapentin (Neurontin) 300 mg PO TID [facility] Stop: 09/23/17 20:59 Last Admin: 07/26/17 20:22 Dose: 300 mg Guaifenesin/Dextromethorphan (Robitussin Dm) 10 ml PO Q4HR [facility] Stop: 08/01/17 19:59 Last Admin: 07/26/17 20:20 Dose: 10 ml Guaifenesin/Dextromethorphan (Robitussin Dm) 10 ml PO Q6HR PRN PRN Reason: Cough Stop: 09/23/17 19:03 Sodium Chloride (Nacl 0.9%) 1,000 mls @ 100 mls/hr IV .Q10H [facility] Stop: 09/23/17 18:30 Last Admin: 07/26/17 16:46 Dose: 100 mls/hr Lisinopril (Zestril) 5 mg PO DAILY [facility] Stop: 09/24/17 08:59 Last Admin: 07/26/17 08:16 Dose: 5 mg Magnesium Hydroxide (Milk Of Magnesia) 30 ml PO HS PRN PRN Reason: Constipation Stop: 09/23/17 19:03 Sodium Chloride (Nacl Tab) 1 gm PO BID [facility] Stop: 09/24/17 08:59 Last Admin: 07/26/17 16:46 Dose: 1 gm Tramadol HCl (Ultram) 50 mg PO Q6H PRN PRN Reason: PAIN Stop: 09/23/17 19:03 General: Alert HEENT: Atraumatic Neck: Supple Cardiovascular: Regular rate Lungs: Normal air movement Abdomen: Bowel sounds, Soft Assessment/Plan - Assessment Assessment: severe anemia leukopenia hyponatremia electrolyte imbalance hx copd hx asthma hx cva hx tia hx htn dementia encephalopathy - Plan Plan: cpm
[2017-07-27] MEDS: Guaifenesin DM 10 ML UDC PO SCH ×6 (00:59→20:26)
[2017-07-27] MEDS: Albuterol Nebulizer 2.5mg/3mL HHN SCH ×6 (02:34→23:02)
[2017-07-27] MEDS: Sodium Chloride 0.9% 1,000 ML IV SCH ×2 (02:35→16:02)
[2017-07-27 02:51] LABS: URINE MICROSCOPIC INDICATED? YES; URINE SOURCE MIDSTREAM
[2017-07-27 02:53] LABS: URINE BILIRUBIN NEGATIVE (NEGATIVE); URINE BLOOD NEGATIVE (NEGATIVE); URINE GLUCOSE (UA) NEGATIVE (NEGATIVE); URINE KETONE NEGATIVE (NEGATIVE); URINE LEUKOCYTE ESTERASE NEGATIVE (NEGATIVE); URINE NITRATE NEGATIVE (NEGATIVE); URINE PH 6.5 (4.6 - 8.0); URINE PROTEIN NEGATIVE (NEGATIVE); URINE UROBILINOGEN 0.2 E.U./dL (0.2 - 1.0)
[2017-07-27 04:13] LABS: URINE CLARITY CLEAR (CLEAR); URINE COLOR YELLOW
[2017-07-27 04:14] LABS: URINE BACTERIA FEW /hpf (NONE SEEN); URINE EPITHELIAL CELLS FEW /lpf (FEW); URINE RBC 0-2 /hpf (0-5); URINE WBC 0-2 /hpf (0-5)
[2017-07-27 06:50] LABS: % EOSINOPHILS 0.3 % (0.0-5.0); % LYMPHOCYTES 47.4 % (20.0-50.0); % MONOCYTES 13.4 % (2.0-10.0); % NEUTROPHILS 37.9 % (40.0-80.0); HEMOGLOBIN 11.1 gm/dL (12-16); LYMPHOCYTE ABSOLUTE 1.9 Th/cmm (1.5-3.0); MEAN CELL VOLUME 89.7 fl (81-100); MEAN CORPUSCULAR HEMOGLOBIN 31.6 pg (27.0-31.0); MEAN CORPUSCULAR HGB CONC 35.2 pg (28.0-36.0); MEAN PLATELET VOLUME 6.2 fl; MONOCYTE ABSOLUTE 0.5 Th/cmm (0.3-1.0); NEUTROPHILE ABSOLUTE 1.4 Th/cmm (1.8-8.0); PLATELET COUNT 339 Th/cmm (150-400); RED BLOOD COUNT 3.53 Mil/cmm (3.80-5.20); RED CELL DISTRIBUTION WIDTH 14.2 % (11.5-20.0)
[2017-07-27 06:55] LABS: HEMATOCRIT 31.7 % (41.0-60); WHITE BLOOD COUNT 3.8 Th/cmm (4.8-10.8)
--- NOTE | 2017-07-27 08:21 | Consultation ---
DATE OF CONSULTATION: 07/26/2017 REASON FOR CONSULTATION: Hyponatremia and fluid management. HISTORY OF PRESENT ILLNESS: This is a 76-year-old -Indian female with past medical history of CVA, who came in because of generalized weakness. One day prior to admission, the patient developed generalized weakness. Labs drawn at the facility revealed sodium of 120. She was then brought to the Emergency Room. Her sodium level at the Emergency Room was 123. She was started on normal saline. Sodium improved overnight to 132 today. She had no nausea and vomiting as well as diarrhea. PAST MEDICAL HISTORY: 1. Psychosis. 2. Alzheimer dementia. 3. Essential hypertension. 4. Status post cerebrovascular accident. 5. Chronic hyponatremia secondary to SIADH. 6. Emphysema. 7. GERD. 8. Peptic ulcer disease. PAST SURGICAL HISTORY: 1. Back surgery. 2. Bilateral tubal ligation. CURRENT MEDICATIONS: She is currently on acetaminophen, albuterol, amlodipine, aspirin, cilostazol, cyanocobalamin, docusate sodium, donepezil, escitalopram oxalate, gabapentin, lisinopril, pantoprazole, sodium chloride 1 gram b.i.d. and tramadol 50 mg q. 6 hours p.r.n. for pain. ALLERGIES: ALLERGIC TO LOVASTATIN. 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 She has a history of smoking, but quit many years ago. No history of alcohol consumption. FAMILY HISTORY: Noncontributory to present illness. REVIEW OF SYSTEMS: GENERAL: She did complain of generalized weakness. Appetite had been fair. No fever and chills. HEENT: No mention of headaches or dizziness. CARDIORESPIRATORY: No chest pain, palpitations, diaphoresis, cough, no shortness of breath. GASTROINTESTINAL: She denied any nausea and vomiting, abdominal pain or cramping, hematemesis, melena, hematochezia, no diarrhea. ENDOCRINE: No history of diabetes or thyroid abnormalities. MUSCULOSKELETAL: Multiple joint arthralgias. GENITOURINARY: No history of kidney failure, but electrolyte abnormalities. NEUROPSYCH: No syncopal episode. No seizure activity. She has psychosis, Alzheimer dementia, history of seizure or CVA. PHYSICAL EXAMINATION: GENERAL: The patient is alert, verbal, comfortable, coherent, has regained some of her strength back. VITAL SIGNS: BP is 146/70, pulse 65, temperature 96.7 degrees. SKIN: Good turgor, warm, no rash, no jaundice appreciated. HEENT: Head normocephalic, atraumatic. Eyes: Extraocular muscles intact. Pupils equal, round, reactive to light and accommodates. Anicteric sclerae. Blevins conjunctivae. Nose, midline nasal septum. Mouth: Dry mucosa, adequate dentition. NECK: Supple, no adenopathy, no thyromegaly, no bruits. Trachea palpated in the midline. CHEST AND CARDIOVASCULAR: S1, S2. No rub, murmur or gallop appreciated. Point of maximal impulse fifth intercostal space, left midclavicular line. No abdominal or femoral bruits appreciated. LUNGS: Equal expansion. No use of accessory muscles. No supraclavicular retractions. Decreased breath sounds, scattered rhonchi, but no rales or wheezes appreciated. BREASTS: Symmetrical, without any discharge. ABDOMEN: Flat, soft. Positive for bowel sounds. No bruits either diastolic or systolic. RECTAL: The patient refused. GENITOURINARY: Normal appearing female genitalia. MUSCULOSKELETAL: No effusions present in her joints, but has limited, but certainly has adequate range of motion. EXTREMITIES: No evidence of edema, cyanosis or clubbing with palpable femoral, popliteal and dorsalis pedis pulses. NEUROLOGIC: The patient is alert, verbal, motor is 5/5. Cranial nerves 3-12 intact. Sensory intact. LABORATORY DATA: Did reveal white count 3.6, hemoglobin 12.2, hematocrit 36.7, platelets 385, polys 41.7%. Sodium 132, potassium is 3.7, chloride 99, bicarbonate 23, BUN 8, creatinine 0.6, glucose 149, calcium 9.4. ASSESSMENT AND PLAN: 1. 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 2. Generalized weakness, consequence of her syndrome of inappropriate antidiuretic hormone. 3. Psychosis. 4. Alzheimer dementia. 5. Essential hypertension. 6. Status post cerebrovascular accident. 7. Emphysema. 8. Gastroesophageal reflux disease,. 9. Peptic ulcer disease. PLAN: 1. Normal saline. 2. Urinalysis. 3. Urine spot sodium. 4. Follow up electrolytes. 5. Discontinue pantoprazole. Thank you Dr. Hernandez for this consult. I will follow the patient closely with you. [facility]# [id number]
[2017-07-27 08:24] LABS: ANION GAP 12.3 (7.0-16.0); BUN - UREA NITROGEN 8 mg/dL (7-25); CALCIUM SERUM 8.9 mg/dL (8.6-10.3); CARBON DIOXIDE 22.3 mEq/L (21.0-31.0); CHLORIDE 100 mEq/L (98-107); CREATININE - SERUM 0.5 mg/dL (0.6-1.2); GLUCOSE 114 mg/dL (70-105); POTASSIUM SERUM 3.6 mEq/L (3.5-5.1); SODIUM SERUM 131 mEq/L (136-145); URIC ACID 4.1 mg/dL (2.3-6.6)
--- NOTE | 2017-07-27 10:56 | Diagnostic Imaging Report ---
Ultrasound abdomen HISTORY: Splenomegaly COMPARISON: Renal ultrasound on 03/17/2017 Technique: Sonography of the abdomen was performed in multiple planes. FINDINGS: Exam is limited due to bowel gas. The liver demonstrates normal echogenicity measures 12.5 cm. No evidence of focal lesions. Distended gallbladder is noted with no evidence of gallstones or gallbladder wall thickening. The common bile duct was not visualized. Evaluation of the pancreas is also limited due to bowel gas. The right kidney measures 12.7 x 6.1 cm demonstrating multiple cysts the largest measuring 3.5 x 2 6 cm. Right hydronephrosis cannot be excluded. The left kidney measures 11.8 x 6.4 cm demonstrating 2 cysts the largest within the mid to upper pole measuring 2.3 x 2.0 cm. No hydronephrosis. The spleen was not well visualized due to body habitus. The visualized portions of the abdominal aorta within normal limits in size. IMPRESSION: Limited exam due to body habitus including suboptimal assessment of the spleen. Since there is concern for splenomegaly follow-up CT examination should be considered for further assessment and accurate measurements. Right renal cysts. There may be right hydronephrosis. Again CT would further clarify. No evidence of hydronephrosis. Distended gallbladder, nonspecific.
--- NOTE | 2017-07-27 13:10 | General Progress Note ---
Subjective - Review of Systems Service Date: 07/27/17 Subjective: alert, verbal Objective - Results Result Diagrams: 07/27/17 06:08 07/27/17 06:08 Recent Labs: Laboratory Last Values WBC 3.8 Th/cmm (4.8-10.8) L 07/27/17 06:08 RBC 3.53 Mil/cmm (3.80-5.20) L 07/27/17 06:08 Hgb 11.1 gm/dL (12-16) L 07/27/17 06:08 Hct 31.7 % (41.0-60) L D 07/27/17 06:08 MCV 89.7 fl (81-100) 07/27/17 06:08 MCH 31.6 pg (27.0-31.0) H 07/27/17 06:08 MCHC Differential 35.2 pg (28.0-36.0) 07/27/17 06:08 RDW 14.2 % (11.5-20.0) 07/27/17 06:08 Plt Count 339 Th/cmm (150-400) 07/27/17 06:08 MPV 6.2 fl 07/27/17 06:08 Neutrophils % 37.9 % (40.0-80.0) L 07/27/17 06:08 Lymphocytes % 47.4 % (20.0-50.0) 07/27/17 06:08 Monocytes % 13.4 % (2.0-10.0) H 07/27/17 06:08 Eosinophils % 0.3 % (0.0-5.0) 07/27/17 06:08 Basophils % 1.0 % (0.0-2.0) 07/27/17 06:08 PT 9.9 SECONDS (9.5-11.5) 07/25/17 13:00 INR 0.95 (0.5-1.4) 07/25/17 13:00 PTT (Actin FS) 21.9 SECONDS (26.0-38.0) L 07/25/17 13:00 Sodium 131 mEq/L (136-145) L 07/27/17 06:08 Potassium 3.6 mEq/L (3.5-5.1) 07/27/17 06:08 Chloride 100 mEq/L (98-107) 07/27/17 06:08 Carbon Dioxide 22.3 mEq/L (21.0-31.0) 07/27/17 06:08 Anion Gap 12.3 (7.0-16.0) 07/27/17 06:08 BUN 8 mg/dL (7-25) 07/27/17 06:08 Creatinine 0.5 mg/dL (0.6-1.2) L 07/27/17 06:08 Est GFR ( Amer) TNP 07/27/17 06:08 Est GFR (Non-Af Amer) TNP 07/27/17 06:08 BUN/Creatinine Ratio 16.0 07/27/17 06:08 Glucose 114 mg/dL (70-105) H 07/27/17 06:08 Whole Bld Lactic Acid 0.60 mmol/L (0.60-1.99) 07/25/17 13:00 Uric Acid 4.1 mg/dL (2.3-6.6) 07/27/17 06:08 Calcium 8.9 mg/dL (8.6-10.3) 07/27/17 06:08 Total Bilirubin 0.7 mg/dL (0.3-1.0) 07/25/17 13:00 AST 43 U/L (13-39) H 07/25/17 13:00 ALT 19 U/L (7-52) 07/25/17 13:00 Alkaline Phosphatase 64 U/L (34-104) 07/25/17 13:00 Creatine Kinase 201 U/L (30-223) 07/25/17 13:00 Troponin I < 0.01 ng/mL (0.01-0.05) L 07/25/17 13:00 Total Protein 7.0 gm/dL (6.0-8.3) 07/25/17 13:00 Albumin 4.2 gm/dL (3.7-5.3) 07/25/17 13:00 Globulin 2.8 gm/dL 07/25/17 13:00 Albumin/Globulin Ratio 1.5 (1.0-1.8) 07/25/17 13:00 TSH 1.18 uIU/ml (0.34-5.60) 07/27/17 06:08 Urine Source MIDSTREAM 07/27/17 02:38 Urine Color YELLOW 07/27/17 02:38 Urine Clarity CLEAR (CLEAR) 07/27/17 02:38 Urine pH 6.5 (4.6 - 8.0) 07/27/17 02:38 Ur Specific [place] <= 1.005 (1.005-1.030) 07/27/17 02:38 Urine Protein NEGATIVE mg/dL (NEGATIVE) 07/27/17 02:38 Urine Glucose (UA) NEGATIVE mg/dL (NEGATIVE) 07/27/17 02:38 Urine Ketones NEGATIVE mg/dL (NEGATIVE) 07/27/17 02:38 Urine Blood NEGATIVE (NEGATIVE) 07/27/17 02:38 Urine Nitrate NEGATIVE (NEGATIVE) 07/27/17 02:38 Urine Bilirubin NEGATIVE (NEGATIVE) 07/27/17 02:38 Urine Urobilinogen 0.2 E.U./dL (0.2 - 1.0) 07/27/17 02:38 Ur Leukocyte Esterase NEGATIVE (NEGATIVE) 07/27/17 02:38 Urine RBC 0-2 /hpf (0-5) 07/27/17 02:38 Urine WBC 0-2 /hpf (0-5) 07/27/17 02:38 Ur Epithelial Cells FEW /lpf (FEW) 07/27/17 02:38 Urine Bacteria FEW /hpf (NONE SEEN) 07/27/17 02:38 Ur Random Sodium 49 mmol/L 07/27/17 02:38 - Physical Exam Vitals and I&O: Vital Signs Temp 97.7 F 07/27/17 04:00 Pulse 79 07/27/17 12:03 Resp 18 07/27/17 12:03 BP 168/81 07/27/17 09:23 Pulse Ox 99 07/27/17 12:03 Intake & Output 07/26/17 07/27/17 07/27/17 18:59 06:59 18:59 Intake Total 2250 981.667 Balance 2250 981.667 Weight (lbs) 64.047 kg Intake: Intake, IV Amount 1000 981.667 Sodium Chloride 0.9% 1, 1000 981.667 000 ml @ 100 mls/hr IV . Q10H [facility] Rx#:[id number] Oral 1250 Other: # Voids 4 # Bowel Movements 1 Stool Characteristics Soft Weight Source Bedscale Active Medications: Current Medications Acetaminophen (Tylenol) 650 mg PO Q4HR PRN PRN Reason: Pain or Fever >101 Stop: 09/23/17 19:03 Albuterol Sulfate (Albuterol 2.5mg/3ml Neb Ud) 2.5 mg HHN Q4HRT [facility] Stop: 09/23/17 18:59 Last Admin: 07/27/17 12:03 Dose: 2.5 mg Albuterol Sulfate (Albuterol 2.5mg/3ml Neb Ud) 2.5 mg HHN Q4HR PRN PRN Reason: cough/wheeze Stop: 09/23/17 19:03 Amlodipine Besylate (Norvasc) 5 mg PO DAILY [facility] Stop: 09/24/17 08:59 Last Admin: 07/27/17 09:23 Dose: 5 mg Aspirin (Aspirin) 325 mg PO DAILY [facility] Stop: 09/24/17 08:59 Last Admin: 07/27/17 09:23 Dose: 325 mg Cilostazol (Pletal) 100 mg PO BID [facility] Stop: 09/24/17 08:59 Last Admin: 07/27/17 09:22 Dose: 100 mg Cyanocobalamin (Vitamin B12) 1,000 mcg PO DAILY [facility] Stop: 09/24/17 08:59 Last Admin: 07/27/17 09:24 Dose: 1,000 mcg Docusate Sodium (Colace) 100 mg PO DAILY [facility] Stop: 09/24/17 08:59 Last Admin: 07/27/17 09:23 Dose: 100 mg Donepezil HCl (Aricept) 10 mg PO DAILY [facility] Stop: 09/24/17 08:59 Last Admin: 07/27/17 09:22 Dose: 10 mg Escitalopram Oxalate (Lexapro) 5 mg PO HS [facility]; Protocol Stop: 09/23/17 20:59 Last Admin: 07/26/17 20:22 Dose: 5 mg Gabapentin (Neurontin) 300 mg PO TID [facility] Stop: 09/23/17 20:59 Last Admin: 07/27/17 09:23 Dose: 300 mg Guaifenesin/Dextromethorphan (Robitussin Dm) 10 ml PO Q4HR [facility] Stop: 08/01/17 19:59 Last Admin: 07/27/17 12:31 Dose: 10 ml Guaifenesin/Dextromethorphan (Robitussin Dm) 10 ml PO Q6HR PRN PRN Reason: Cough Stop: 09/23/17 19:03 Sodium Chloride (Nacl 0.9%) 1,000 mls @ 100 mls/hr IV .Q10H [facility] Stop: 09/23/17 18:30 Last Admin: 07/27/17 02:35 Dose: 100 mls/hr Lisinopril (Zestril) 5 mg PO DAILY [facility] Stop: 09/24/17 08:59 Last Admin: 07/27/17 09:22 Dose: 5 mg Magnesium Hydroxide (Milk Of Magnesia) 30 ml PO HS PRN PRN Reason: Constipation Stop: 09/23/17 19:03 Sodium Chloride (Nacl Tab) 1 gm PO BID [facility] Stop: 09/24/17 08:59 Last Admin: 07/27/17 09:23 Dose: 1 gm Tramadol HCl (Ultram) 50 mg PO Q6H PRN PRN Reason: PAIN Stop: 09/23/17 19:03 General: Alert, No acute distress HEENT: Atraumatic, PERRLA, Mucous membr. 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 Psychosis Alzh Dementia Ess Htn S/P CVA PUD - Plan Plan: Lab - Result Diagrams 07/27/17 06:08 07/27/17 06:08 Current Medications Acetaminophen (Tylenol) 650 mg PO Q4HR PRN PRN Reason: Pain or Fever >101 Stop: 09/23/17 19:03 Albuterol Sulfate (Albuterol 2.5mg/3ml Neb Ud) 2.5 mg HHN Q4HRT [facility] Stop: 09/23/17 18:59 Last Admin: 07/27/17 12:03 Dose: 2.5 mg Albuterol Sulfate (Albuterol 2.5mg/3ml Neb Ud) 2.5 mg HHN Q4HR PRN PRN Reason: cough/wheeze Stop: 09/23/17 19:03 Amlodipine Besylate (Norvasc) 5 mg PO DAILY [facility] Stop: 09/24/17 08:59 Last Admin: 07/27/17 09:23 Dose: 5 mg Aspirin (Aspirin) 325 mg PO DAILY [facility] Stop: 09/24/17 08:59 Last Admin: 07/27/17 09:23 Dose: 325 mg Cilostazol (Pletal) 100 mg PO BID [facility] Stop: 09/24/17 08:59 Last Admin: 07/27/17 09:22 Dose: 100 mg Cyanocobalamin (Vitamin B12) 1,000 mcg PO DAILY [facility] Stop: 09/24/17 08:59 Last Admin: 07/27/17 09:24 Dose: 1,000 mcg Docusate Sodium (Colace) 100 mg PO DAILY [facility] Stop: 09/24/17 08:59 Last Admin: 07/27/17 09:23 Dose: 100 mg Donepezil HCl (Aricept) 10 mg PO DAILY [facility] Stop: 09/24/17 08:59 Last Admin: 07/27/17 09:22 Dose: 10 mg Escitalopram Oxalate (Lexapro) 5 mg PO HS [facility]; Protocol Stop: 09/23/17 20:59 Last Admin: 07/26/17 20:22 Dose: 5 mg Gabapentin (Neurontin) 300 mg PO TID [facility] Stop: 09/23/17 20:59 Last Admin: 07/27/17 09:23 Dose: 300 mg Guaifenesin/Dextromethorphan (Robitussin Dm) 10 ml PO Q4HR [facility] Stop: 08/01/17 19:59 Last Admin: 07/27/17 12:31 Dose: 10 ml Guaifenesin/Dextromethorphan (Robitussin Dm) 10 ml PO Q6HR PRN PRN Reason: Cough Stop: 09/23/17 19:03 Sodium Chloride (Nacl 0.9%) 1,000 mls @ 100 mls/hr IV .Q10H [facility] Stop: 09/23/17 18:30 Last Admin: 07/27/17 02:35 Dose: 100 mls/hr Lisinopril (Zestril) 5 mg PO DAILY [facility] Stop: 09/24/17 08:59 Last Admin: 07/27/17 09:22 Dose: 5 mg Magnesium Hydroxide (Milk Of Magnesia) 30 ml PO HS PRN PRN Reason: Constipation Stop: 09/23/17 19:03 Sodium Chloride (Nacl Tab) 1 gm PO BID [facility] Stop: 09/24/17 08:59 Last Admin: 07/27/17 09:23 Dose: 1 gm Tramadol HCl (Ultram) 50 mg PO Q6H PRN PRN Reason: PAIN Stop: 09/23/17 19:03 Lab - Result Diagrams 07/27/17 06:08 07/27/17 06:08 Na stable @ 131 gradually regaining strenght continue NS f/u electrolytes
--- NOTE | 2017-07-27 14:33 | General Progress Note ---
Subjective - Review of Systems Events since last encounter: awake alert no distress Subjective: patient awake feels weak Objective - Results Result Diagrams: 07/27/17 06:08 07/27/17 06:08 Recent Labs: Laboratory Last Values WBC 3.8 Th/cmm (4.8-10.8) L 07/27/17 06:08 RBC 3.53 Mil/cmm (3.80-5.20) L 07/27/17 06:08 Hgb 11.1 gm/dL (12-16) L 07/27/17 06:08 Hct 31.7 % (41.0-60) L D 07/27/17 06:08 MCV 89.7 fl (81-100) 07/27/17 06:08 MCH 31.6 pg (27.0-31.0) H 07/27/17 06:08 MCHC Differential 35.2 pg (28.0-36.0) 07/27/17 06:08 RDW 14.2 % (11.5-20.0) 07/27/17 06:08 Plt Count 339 Th/cmm (150-400) 07/27/17 06:08 MPV 6.2 fl 07/27/17 06:08 Neutrophils % 37.9 % (40.0-80.0) L 07/27/17 06:08 Lymphocytes % 47.4 % (20.0-50.0) 07/27/17 06:08 Monocytes % 13.4 % (2.0-10.0) H 07/27/17 06:08 Eosinophils % 0.3 % (0.0-5.0) 07/27/17 06:08 Basophils % 1.0 % (0.0-2.0) 07/27/17 06:08 PT 9.9 SECONDS (9.5-11.5) 07/25/17 13:00 INR 0.95 (0.5-1.4) 07/25/17 13:00 PTT (Actin FS) 21.9 SECONDS (26.0-38.0) L 07/25/17 13:00 Sodium 131 mEq/L (136-145) L 07/27/17 06:08 Potassium 3.6 mEq/L (3.5-5.1) 07/27/17 06:08 Chloride 100 mEq/L (98-107) 07/27/17 06:08 Carbon Dioxide 22.3 mEq/L (21.0-31.0) 07/27/17 06:08 Anion Gap 12.3 (7.0-16.0) 07/27/17 06:08 BUN 8 mg/dL (7-25) 07/27/17 06:08 Creatinine 0.5 mg/dL (0.6-1.2) L 07/27/17 06:08 Est GFR ( Amer) TNP 07/27/17 06:08 Est GFR (Non-Af Amer) TNP 07/27/17 06:08 BUN/Creatinine Ratio 16.0 07/27/17 06:08 Glucose 114 mg/dL (70-105) H 07/27/17 06:08 Whole Bld Lactic Acid 0.60 mmol/L (0.60-1.99) 07/25/17 13:00 Uric Acid 4.1 mg/dL (2.3-6.6) 07/27/17 06:08 Calcium 8.9 mg/dL (8.6-10.3) 07/27/17 06:08 Total Bilirubin 0.7 mg/dL (0.3-1.0) 07/25/17 13:00 AST 43 U/L (13-39) H 07/25/17 13:00 ALT 19 U/L (7-52) 07/25/17 13:00 Alkaline Phosphatase 64 U/L (34-104) 07/25/17 13:00 Creatine Kinase 201 U/L (30-223) 07/25/17 13:00 Troponin I < 0.01 ng/mL (0.01-0.05) L 07/25/17 13:00 Total Protein 7.0 gm/dL (6.0-8.3) 07/25/17 13:00 Albumin 4.2 gm/dL (3.7-5.3) 07/25/17 13:00 Globulin 2.8 gm/dL 07/25/17 13:00 Albumin/Globulin Ratio 1.5 (1.0-1.8) 07/25/17 13:00 TSH 1.18 uIU/ml (0.34-5.60) 07/27/17 06:08 Urine Source MIDSTREAM 07/27/17 02:38 Urine Color YELLOW 07/27/17 02:38 Urine Clarity CLEAR (CLEAR) 07/27/17 02:38 Urine pH 6.5 (4.6 - 8.0) 07/27/17 02:38 Ur Specific [place] <= 1.005 (1.005-1.030) 07/27/17 02:38 Urine Protein NEGATIVE mg/dL (NEGATIVE) 07/27/17 02:38 Urine Glucose (UA) NEGATIVE mg/dL (NEGATIVE) 07/27/17 02:38 Urine Ketones NEGATIVE mg/dL (NEGATIVE) 07/27/17 02:38 Urine Blood NEGATIVE (NEGATIVE) 07/27/17 02:38 Urine Nitrate NEGATIVE (NEGATIVE) 07/27/17 02:38 Urine Bilirubin NEGATIVE (NEGATIVE) 07/27/17 02:38 Urine Urobilinogen 0.2 E.U./dL (0.2 - 1.0) 07/27/17 02:38 Ur Leukocyte Esterase NEGATIVE (NEGATIVE) 07/27/17 02:38 Urine RBC 0-2 /hpf (0-5) 07/27/17 02:38 Urine WBC 0-2 /hpf (0-5) 07/27/17 02:38 Ur Epithelial Cells FEW /lpf (FEW) 07/27/17 02:38 Urine Bacteria FEW /hpf (NONE SEEN) 07/27/17 02:38 Ur Random Sodium 49 mmol/L 07/27/17 02:38 - Physical Exam Vitals and I&O: Vital Signs Temp 97.7 F 07/27/17 04:00 Pulse 77 07/27/17 14:19 Resp 18 07/27/17 14:19 BP 168/81 07/27/17 09:23 Pulse Ox 99 07/27/17 14:19 Intake & Output 07/26/17 07/27/17 07/27/17 18:59 06:59 18:59 Intake Total 2250 981.667 Balance 2250 981.667 Weight (lbs) 64.047 kg Intake: Intake, IV Amount 1000 981.667 Sodium Chloride 0.9% 1, 1000 981.667 000 ml @ 100 mls/hr IV . Q10H [facility] Rx#:[id number] Oral 1250 Other: # Voids 4 # Bowel Movements 1 Stool Characteristics Soft Weight Source Bedscale Active Medications: Current Medications Acetaminophen (Tylenol) 650 mg PO Q4HR PRN PRN Reason: Pain or Fever >101 Stop: 09/23/17 19:03 Albuterol Sulfate (Albuterol 2.5mg/3ml Neb Ud) 2.5 mg HHN Q4HRT [facility] Stop: 09/23/17 18:59 Last Admin: 07/27/17 14:18 Dose: 2.5 mg Albuterol Sulfate (Albuterol 2.5mg/3ml Neb Ud) 2.5 mg HHN Q4HR PRN PRN Reason: cough/wheeze Stop: 09/23/17 19:03 Amlodipine Besylate (Norvasc) 5 mg PO DAILY [facility] Stop: 09/24/17 08:59 Last Admin: 07/27/17 09:23 Dose: 5 mg Aspirin (Aspirin) 325 mg PO DAILY [facility] Stop: 09/24/17 08:59 Last Admin: 07/27/17 09:23 Dose: 325 mg Cilostazol (Pletal) 100 mg PO BID [facility] Stop: 09/24/17 08:59 Last Admin: 07/27/17 09:22 Dose: 100 mg Cyanocobalamin (Vitamin B12) 1,000 mcg PO DAILY [facility] Stop: 09/24/17 08:59 Last Admin: 07/27/17 09:24 Dose: 1,000 mcg Docusate Sodium (Colace) 100 mg PO DAILY [facility] Stop: 09/24/17 08:59 Last Admin: 07/27/17 09:23 Dose: 100 mg Donepezil HCl (Aricept) 10 mg PO DAILY [facility] Stop: 09/24/17 08:59 Last Admin: 07/27/17 09:22 Dose: 10 mg Escitalopram Oxalate (Lexapro) 5 mg PO HS [facility]; Protocol Stop: 09/23/17 20:59 Last Admin: 07/26/17 20:22 Dose: 5 mg Gabapentin (Neurontin) 300 mg PO TID [facility] Stop: 09/23/17 20:59 Last Admin: 07/27/17 14:20 Dose: 300 mg Guaifenesin/Dextromethorphan (Robitussin Dm) 10 ml PO Q4HR [facility] Stop: 08/01/17 19:59 Last Admin: 07/27/17 12:31 Dose: 10 ml Guaifenesin/Dextromethorphan (Robitussin Dm) 10 ml PO Q6HR PRN PRN Reason: Cough Stop: 09/23/17 19:03 Sodium Chloride (Nacl 0.9%) 1,000 mls @ 100 mls/hr IV .Q10H [facility] Stop: 09/23/17 18:30 Last Admin: 07/27/17 02:35 Dose: 100 mls/hr Lisinopril (Zestril) 5 mg PO DAILY [facility] Stop: 09/24/17 08:59 Last Admin: 07/27/17 09:22 Dose: 5 mg Magnesium Hydroxide (Milk Of Magnesia) 30 ml PO HS PRN PRN Reason: Constipation Stop: 09/23/17 19:03 Sodium Chloride (Nacl Tab) 1 gm PO BID [facility] Stop: 09/24/17 08:59 Last Admin: 07/27/17 09:23 Dose: 1 gm Tramadol HCl (Ultram) 50 mg PO Q6H PRN PRN Reason: PAIN Stop: 09/23/17 19:03 General: Alert, No acute distress HEENT: Atraumatic, PERRLA, Mucous membr. moist/pink Neck: Supple Cardiovascular: Regular rate, Normal S1, Normal S2 Lungs: Normal air movement Abdomen: Bowel sounds, Soft Extremities: no Edema Neurological: Sensation intact Skin: no Rash Psych/Mental Status: Mood NL Assessment/Plan - Assessment Assessment: severe anemia leukopenia hyponatremia electrolyte imbalance hx copd hx asthma hx cva hx tia hx htn dementia encephalopathy - Plan Plan: cpm
--- NOTE | 2017-07-27 15:55 | General Progress Note ---
Subjective - Review of Systems Service Date: 07/27/17 Events since last encounter: no events Objective - Results Result Diagrams: 07/27/17 06:08 07/27/17 06:08 Recent Labs: Laboratory Last Values WBC 3.8 Th/cmm (4.8-10.8) L 07/27/17 06:08 RBC 3.53 Mil/cmm (3.80-5.20) L 07/27/17 06:08 Hgb 11.1 gm/dL (12-16) L 07/27/17 06:08 Hct 31.7 % (41.0-60) L D 07/27/17 06:08 MCV 89.7 fl (81-100) 07/27/17 06:08 MCH 31.6 pg (27.0-31.0) H 07/27/17 06:08 MCHC Differential 35.2 pg (28.0-36.0) 07/27/17 06:08 RDW 14.2 % (11.5-20.0) 07/27/17 06:08 Plt Count 339 Th/cmm (150-400) 07/27/17 06:08 MPV 6.2 fl 07/27/17 06:08 Neutrophils % 37.9 % (40.0-80.0) L 07/27/17 06:08 Lymphocytes % 47.4 % (20.0-50.0) 07/27/17 06:08 Monocytes % 13.4 % (2.0-10.0) H 07/27/17 06:08 Eosinophils % 0.3 % (0.0-5.0) 07/27/17 06:08 Basophils % 1.0 % (0.0-2.0) 07/27/17 06:08 PT 9.9 SECONDS (9.5-11.5) 07/25/17 13:00 INR 0.95 (0.5-1.4) 07/25/17 13:00 PTT (Actin FS) 21.9 SECONDS (26.0-38.0) L 07/25/17 13:00 Sodium 131 mEq/L (136-145) L 07/27/17 06:08 Potassium 3.6 mEq/L (3.5-5.1) 07/27/17 06:08 Chloride 100 mEq/L (98-107) 07/27/17 06:08 Carbon Dioxide 22.3 mEq/L (21.0-31.0) 07/27/17 06:08 Anion Gap 12.3 (7.0-16.0) 07/27/17 06:08 BUN 8 mg/dL (7-25) 07/27/17 06:08 Creatinine 0.5 mg/dL (0.6-1.2) L 07/27/17 06:08 Est GFR ( Amer) TNP 07/27/17 06:08 Est GFR (Non-Af Amer) TNP 07/27/17 06:08 BUN/Creatinine Ratio 16.0 07/27/17 06:08 Glucose 114 mg/dL (70-105) H 07/27/17 06:08 Whole Bld Lactic Acid 0.60 mmol/L (0.60-1.99) 07/25/17 13:00 Uric Acid 4.1 mg/dL (2.3-6.6) 07/27/17 06:08 Calcium 8.9 mg/dL (8.6-10.3) 07/27/17 06:08 Total Bilirubin 0.7 mg/dL (0.3-1.0) 07/25/17 13:00 AST 43 U/L (13-39) H 07/25/17 13:00 ALT 19 U/L (7-52) 07/25/17 13:00 Alkaline Phosphatase 64 U/L (34-104) 07/25/17 13:00 Creatine Kinase 201 U/L (30-223) 07/25/17 13:00 Troponin I < 0.01 ng/mL (0.01-0.05) L 07/25/17 13:00 Total Protein 7.0 gm/dL (6.0-8.3) 07/25/17 13:00 Albumin 4.2 gm/dL (3.7-5.3) 07/25/17 13:00 Globulin 2.8 gm/dL 07/25/17 13:00 Albumin/Globulin Ratio 1.5 (1.0-1.8) 07/25/17 13:00 TSH 1.18 uIU/ml (0.34-5.60) 07/27/17 06:08 Urine Source MIDSTREAM 07/27/17 02:38 Urine Color YELLOW 07/27/17 02:38 Urine Clarity CLEAR (CLEAR) 07/27/17 02:38 Urine pH 6.5 (4.6 - 8.0) 07/27/17 02:38 Ur Specific [place] <= 1.005 (1.005-1.030) 07/27/17 02:38 Urine Protein NEGATIVE mg/dL (NEGATIVE) 07/27/17 02:38 Urine Glucose (UA) NEGATIVE mg/dL (NEGATIVE) 07/27/17 02:38 Urine Ketones NEGATIVE mg/dL (NEGATIVE) 07/27/17 02:38 Urine Blood NEGATIVE (NEGATIVE) 07/27/17 02:38 Urine Nitrate NEGATIVE (NEGATIVE) 07/27/17 02:38 Urine Bilirubin NEGATIVE (NEGATIVE) 07/27/17 02:38 Urine Urobilinogen 0.2 E.U./dL (0.2 - 1.0) 07/27/17 02:38 Ur Leukocyte Esterase NEGATIVE (NEGATIVE) 07/27/17 02:38 Urine RBC 0-2 /hpf (0-5) 07/27/17 02:38 Urine WBC 0-2 /hpf (0-5) 07/27/17 02:38 Ur Epithelial Cells FEW /lpf (FEW) 07/27/17 02:38 Urine Bacteria FEW /hpf (NONE SEEN) 07/27/17 02:38 Ur Random Sodium 49 mmol/L 07/27/17 02:38 - Physical Exam Vitals and I&O: Vital Signs Temp 98.0 F 07/27/17 12:00 Pulse 77 07/27/17 14:19 Resp 18 07/27/17 14:19 BP 157/76 07/27/17 12:00 Pulse Ox 99 07/27/17 14:19 Intake & Output 07/26/17 07/27/17 07/27/17 18:59 06:59 18:59 Intake Total 2250 981.667 Balance 2250 981.667 Weight (lbs) 64.047 kg Intake: Intake, IV Amount 1000 981.667 Sodium Chloride 0.9% 1, 1000 981.667 000 ml @ 100 mls/hr IV . Q10H [facility] Rx#:[id number] Oral 1250 Other: # Voids 4 # Bowel Movements 1 Stool Characteristics Soft Soft Formed Weight Source Bedscale Active Medications: Current Medications Acetaminophen (Tylenol) 650 mg PO Q4HR PRN PRN Reason: Pain or Fever >101 Stop: 09/23/17 19:03 Albuterol Sulfate (Albuterol 2.5mg/3ml Neb Ud) 2.5 mg HHN Q4HRT [facility] Stop: 09/23/17 18:59 Last Admin: 07/27/17 14:18 Dose: 2.5 mg Albuterol Sulfate (Albuterol 2.5mg/3ml Neb Ud) 2.5 mg HHN Q4HR PRN PRN Reason: cough/wheeze Stop: 09/23/17 19:03 Amlodipine Besylate (Norvasc) 5 mg PO DAILY [facility] Stop: 09/24/17 08:59 Last Admin: 07/27/17 09:23 Dose: 5 mg Aspirin (Aspirin) 325 mg PO DAILY [facility] Stop: 09/24/17 08:59 Last Admin: 07/27/17 09:23 Dose: 325 mg Cilostazol (Pletal) 100 mg PO BID [facility] Stop: 09/24/17 08:59 Last Admin: 07/27/17 09:22 Dose: 100 mg Cyanocobalamin (Vitamin B12) 1,000 mcg PO DAILY [facility] Stop: 09/24/17 08:59 Last Admin: 07/27/17 09:24 Dose: 1,000 mcg Docusate Sodium (Colace) 100 mg PO DAILY [facility] Stop: 09/24/17 08:59 Last Admin: 07/27/17 09:23 Dose: 100 mg Donepezil HCl (Aricept) 10 mg PO DAILY [facility] Stop: 09/24/17 08:59 Last Admin: 07/27/17 09:22 Dose: 10 mg Escitalopram Oxalate (Lexapro) 5 mg PO HS [facility]; Protocol Stop: 09/23/17 20:59 Last Admin: 07/26/17 20:22 Dose: 5 mg Gabapentin (Neurontin) 300 mg PO TID [facility] Stop: 09/23/17 20:59 Last Admin: 07/27/17 14:20 Dose: 300 mg Guaifenesin/Dextromethorphan (Robitussin Dm) 10 ml PO Q4HR [facility] Stop: 08/01/17 19:59 Last Admin: 07/27/17 12:31 Dose: 10 ml Guaifenesin/Dextromethorphan (Robitussin Dm) 10 ml PO Q6HR PRN PRN Reason: Cough Stop: 09/23/17 19:03 Sodium Chloride (Nacl 0.9%) 1,000 mls @ 100 mls/hr IV .Q10H [facility] Stop: 09/23/17 18:30 Last Admin: 07/27/17 02:35 Dose: 100 mls/hr Lisinopril (Zestril) 5 mg PO DAILY [facility] Stop: 09/24/17 08:59 Last Admin: 07/27/17 09:22 Dose: 5 mg Magnesium Hydroxide (Milk Of Magnesia) 30 ml PO HS PRN PRN Reason: Constipation Stop: 09/23/17 19:03 Sodium Chloride (Nacl Tab) 1 gm PO BID [facility] Stop: 09/24/17 08:59 Last Admin: 07/27/17 09:23 Dose: 1 gm Tramadol HCl (Ultram) 50 mg PO Q6H PRN PRN Reason: PAIN Stop: 09/23/17 19:03 General: Alert, No acute distress HEENT: Atraumatic, PERRLA, Mucous membr. moist/pink Neck: Supple Cardiovascular: Regular rate, Normal S1, Normal S2 Lungs: Normal air movement Abdomen: Bowel sounds, Soft Extremities: no Edema Neurological: Sensation intact Skin: no Rash Psych/Mental Status: Mood NL Assessment/Plan - Assessment Assessment: * Chronic leukopenia, stable. Most likely chronic benign leukopenia follow b12, fa, ALIA US of spleen not diagnostic
[2017-07-27] MEDS: Escitalopram Oxalate 5 mg Tab PO SCH (20:27)
[2017-07-28] MEDS: Guaifenesin DM 10 ML UDC PO SCH ×4 (00:55→12:27)
[2017-07-28] MEDS: Sodium Chloride 0.9% 1,000 ML IV SCH ×2 (01:51→12:26)
[2017-07-28] MEDS: Albuterol Nebulizer 2.5mg/3mL HHN SCH ×3 (03:10→11:42)
[2017-07-28 05:59] LABS: ANION GAP 11.6 (7.0-16.0); BUN - UREA NITROGEN 6 mg/dL (7-25); CALCIUM SERUM 8.6 mg/dL (8.6-10.3); CHLORIDE 103 mEq/L (98-107); CREATININE - SERUM 0.5 mg/dL (0.6-1.2); GLUCOSE 109 mg/dL (70-105); POTASSIUM SERUM 3.6 mEq/L (3.5-5.1); SODIUM SERUM 132 mEq/L (136-145)
--- NOTE | 2017-07-28 08:01 | General Progress Note ---
Subjective - Review of Systems Events since last encounter: no change no distress Subjective: patient awake feels weak Objective - Results Result Diagrams: 07/27/17 06:08 07/28/17 05:00 Recent Labs: Laboratory Last Values WBC 3.8 Th/cmm (4.8-10.8) L 07/27/17 06:08 RBC 3.53 Mil/cmm (3.80-5.20) L 07/27/17 06:08 Hgb 11.1 gm/dL (12-16) L 07/27/17 06:08 Hct 31.7 % (41.0-60) L D 07/27/17 06:08 MCV 89.7 fl (81-100) 07/27/17 06:08 MCH 31.6 pg (27.0-31.0) H 07/27/17 06:08 MCHC Differential 35.2 pg (28.0-36.0) 07/27/17 06:08 RDW 14.2 % (11.5-20.0) 07/27/17 06:08 Plt Count 339 Th/cmm (150-400) 07/27/17 06:08 MPV 6.2 fl 07/27/17 06:08 Neutrophils % 37.9 % (40.0-80.0) L 07/27/17 06:08 Lymphocytes % 47.4 % (20.0-50.0) 07/27/17 06:08 Monocytes % 13.4 % (2.0-10.0) H 07/27/17 06:08 Eosinophils % 0.3 % (0.0-5.0) 07/27/17 06:08 Basophils % 1.0 % (0.0-2.0) 07/27/17 06:08 PT 9.9 SECONDS (9.5-11.5) 07/25/17 13:00 INR 0.95 (0.5-1.4) 07/25/17 13:00 PTT (Actin FS) 21.9 SECONDS (26.0-38.0) L 07/25/17 13:00 Sodium 132 mEq/L (136-145) L 07/28/17 05:00 Potassium 3.6 mEq/L (3.5-5.1) 07/28/17 05:00 Chloride 103 mEq/L (98-107) 07/28/17 05:00 Carbon Dioxide 21.0 mEq/L (21.0-31.0) 07/28/17 05:00 Anion Gap 11.6 (7.0-16.0) 07/28/17 05:00 BUN 6 mg/dL (7-25) L 07/28/17 05:00 Creatinine 0.5 mg/dL (0.6-1.2) L 07/28/17 05:00 Est GFR ( Amer) TNP 07/28/17 05:00 Est GFR (Non-Af Amer) TNP 07/28/17 05:00 BUN/Creatinine Ratio 12.0 07/28/17 05:00 Glucose 109 mg/dL (70-105) H 07/28/17 05:00 Whole Bld Lactic Acid 0.60 mmol/L (0.60-1.99) 07/25/17 13:00 Uric Acid 4.1 mg/dL (2.3-6.6) 07/27/17 06:08 Calcium 8.6 mg/dL (8.6-10.3) 07/28/17 05:00 Total Bilirubin 0.7 mg/dL (0.3-1.0) 07/25/17 13:00 AST 43 U/L (13-39) H 07/25/17 13:00 ALT 19 U/L (7-52) 07/25/17 13:00 Alkaline Phosphatase 64 U/L (34-104) 07/25/17 13:00 Creatine Kinase 201 U/L (30-223) 07/25/17 13:00 Troponin I < 0.01 ng/mL (0.01-0.05) L 07/25/17 13:00 Total Protein 7.0 gm/dL (6.0-8.3) 07/25/17 13:00 Albumin 4.2 gm/dL (3.7-5.3) 07/25/17 13:00 Globulin 2.8 gm/dL 07/25/17 13:00 Albumin/Globulin Ratio 1.5 (1.0-1.8) 07/25/17 13:00 TSH 1.18 uIU/ml (0.34-5.60) 07/27/17 06:08 Urine Source MIDSTREAM 07/27/17 02:38 Urine Color YELLOW 07/27/17 02:38 Urine Clarity CLEAR (CLEAR) 07/27/17 02:38 Urine pH 6.5 (4.6 - 8.0) 07/27/17 02:38 Ur Specific [place] <= 1.005 (1.005-1.030) 07/27/17 02:38 Urine Protein NEGATIVE mg/dL (NEGATIVE) 07/27/17 02:38 Urine Glucose (UA) NEGATIVE mg/dL (NEGATIVE) 07/27/17 02:38 Urine Ketones NEGATIVE mg/dL (NEGATIVE) 07/27/17 02:38 Urine Blood NEGATIVE (NEGATIVE) 07/27/17 02:38 Urine Nitrate NEGATIVE (NEGATIVE) 07/27/17 02:38 Urine Bilirubin NEGATIVE (NEGATIVE) 07/27/17 02:38 Urine Urobilinogen 0.2 E.U./dL (0.2 - 1.0) 07/27/17 02:38 Ur Leukocyte Esterase NEGATIVE (NEGATIVE) 07/27/17 02:38 Urine RBC 0-2 /hpf (0-5) 07/27/17 02:38 Urine WBC 0-2 /hpf (0-5) 07/27/17 02:38 Ur Epithelial Cells FEW /lpf (FEW) 07/27/17 02:38 Urine Bacteria FEW /hpf (NONE SEEN) 07/27/17 02:38 Ur Random Sodium 49 mmol/L 07/27/17 02:38 - Physical Exam Vitals and I&O: Vital Signs Temp 97.6 F 07/28/17 04:00 Pulse 72 07/28/17 07:11 Resp 18 07/28/17 07:11 BP 162/76 07/28/17 04:00 Pulse Ox 100 07/28/17 07:11 Intake & Output 07/27/17 07/28/17 07/28/17 18:59 06:59 18:59 Intake Total 2700 1181.667 Balance 2700 1181.667 Weight (lbs) 64.047 kg 58.967 kg Intake: Intake, IV Amount 1000 981.667 Sodium Chloride 0.9% 1, 1000 981.667 000 ml @ 100 mls/hr IV . Q10H [facility] Rx#:[id number] Oral 1700 200 Other: # Voids 5 3 # Bowel Movements 1 Stool Characteristics Soft Soft Formed Formed Weight Source Bedscale Bedscale Active Medications: Current Medications Acetaminophen (Tylenol) 650 mg PO Q4HR PRN PRN Reason: Pain or Fever >101 Stop: 09/23/17 19:03 Albuterol Sulfate (Albuterol 2.5mg/3ml Neb Ud) 2.5 mg HHN Q4HRT [facility] Stop: 09/23/17 18:59 Last Admin: 07/28/17 07:11 Dose: 2.5 mg Albuterol Sulfate (Albuterol 2.5mg/3ml Neb Ud) 2.5 mg HHN Q4HR PRN PRN Reason: cough/wheeze Stop: 09/23/17 19:03 Amlodipine Besylate (Norvasc) 5 mg PO DAILY [facility] Stop: 09/24/17 08:59 Last Admin: 07/27/17 09:23 Dose: 5 mg Aspirin (Aspirin) 325 mg PO DAILY [facility] Stop: 09/24/17 08:59 Last Admin: 07/27/17 09:23 Dose: 325 mg Cilostazol (Pletal) 100 mg PO BID [facility] Stop: 09/24/17 08:59 Last Admin: 07/27/17 16:02 Dose: 100 mg Cyanocobalamin (Vitamin B12) 1,000 mcg PO DAILY [facility] Stop: 09/24/17 08:59 Last Admin: 07/27/17 09:24 Dose: 1,000 mcg Docusate Sodium (Colace) 100 mg PO DAILY [facility] Stop: 09/24/17 08:59 Last Admin: 07/27/17 09:23 Dose: 100 mg Donepezil HCl (Aricept) 10 mg PO DAILY [facility] Stop: 09/24/17 08:59 Last Admin: 07/27/17 09:22 Dose: 10 mg Escitalopram Oxalate (Lexapro) 5 mg PO HS [facility]; Protocol Stop: 09/23/17 20:59 Last Admin: 07/27/17 20:27 Dose: 5 mg Gabapentin (Neurontin) 300 mg PO TID [facility] Stop: 09/23/17 20:59 Last Admin: 07/27/17 20:27 Dose: 300 mg Guaifenesin/Dextromethorphan (Robitussin Dm) 10 ml PO Q4HR [facility] Stop: 08/01/17 19:59 Last Admin: 07/28/17 05:17 Dose: 10 ml Guaifenesin/Dextromethorphan (Robitussin Dm) 10 ml PO Q6HR PRN PRN Reason: Cough Stop: 09/23/17 19:03 Sodium Chloride (Nacl 0.9%) 1,000 mls @ 100 mls/hr IV .Q10H [facility] Stop: 09/23/17 18:30 Last Admin: 07/28/17 01:51 Dose: 100 mls/hr Lisinopril (Zestril) 5 mg PO DAILY [facility] Stop: 09/24/17 08:59 Last Admin: 07/27/17 09:22 Dose: 5 mg Magnesium Hydroxide (Milk Of Magnesia) 30 ml PO HS PRN PRN Reason: Constipation Stop: 09/23/17 19:03 Sodium Chloride (Nacl Tab) 1 gm PO BID [facility] Stop: 09/24/17 08:59 Last Admin: 07/27/17 16:02 Dose: 1 gm Tramadol HCl (Ultram) 50 mg PO Q6H PRN PRN Reason: PAIN Stop: 09/23/17 19:03 General: Alert, No acute distress HEENT: Atraumatic, PERRLA, Mucous membr. moist/pink Neck: Supple Cardiovascular: Regular rate, Normal S1, Normal S2 Lungs: Normal air movement Abdomen: Bowel sounds, Soft Extremities: no Edema Neurological: Sensation intact Skin: no Rash Psych/Mental Status: Mood NL Assessment/Plan - Assessment Assessment: severe anemia leukopenia hyponatremia electrolyte imbalance hx copd hx asthma hx cva hx tia hx htn dementia encephalopathy - Plan Plan: cpm
--- NOTE | 2017-07-28 15:00 | General Progress Note ---
Subjective - Review of Systems Service Date: 07/28/17 Subjective: alert, verbal Objective - Results Result Diagrams: 07/27/17 06:08 07/28/17 05:00 Recent Labs: Laboratory Last Values WBC 3.8 Th/cmm (4.8-10.8) L 07/27/17 06:08 RBC 3.53 Mil/cmm (3.80-5.20) L 07/27/17 06:08 Hgb 11.1 gm/dL (12-16) L 07/27/17 06:08 Hct 31.7 % (41.0-60) L D 07/27/17 06:08 MCV 89.7 fl (81-100) 07/27/17 06:08 MCH 31.6 pg (27.0-31.0) H 07/27/17 06:08 MCHC Differential 35.2 pg (28.0-36.0) 07/27/17 06:08 RDW 14.2 % (11.5-20.0) 07/27/17 06:08 Plt Count 339 Th/cmm (150-400) 07/27/17 06:08 MPV 6.2 fl 07/27/17 06:08 Neutrophils % 37.9 % (40.0-80.0) L 07/27/17 06:08 Lymphocytes % 47.4 % (20.0-50.0) 07/27/17 06:08 Monocytes % 13.4 % (2.0-10.0) H 07/27/17 06:08 Eosinophils % 0.3 % (0.0-5.0) 07/27/17 06:08 Basophils % 1.0 % (0.0-2.0) 07/27/17 06:08 PT 9.9 SECONDS (9.5-11.5) 07/25/17 13:00 INR 0.95 (0.5-1.4) 07/25/17 13:00 PTT (Actin FS) 21.9 SECONDS (26.0-38.0) L 07/25/17 13:00 Sodium 132 mEq/L (136-145) L 07/28/17 05:00 Potassium 3.6 mEq/L (3.5-5.1) 07/28/17 05:00 Chloride 103 mEq/L (98-107) 07/28/17 05:00 Carbon Dioxide 21.0 mEq/L (21.0-31.0) 07/28/17 05:00 Anion Gap 11.6 (7.0-16.0) 07/28/17 05:00 BUN 6 mg/dL (7-25) L 07/28/17 05:00 Creatinine 0.5 mg/dL (0.6-1.2) L 07/28/17 05:00 Est GFR ( Amer) TNP 07/28/17 05:00 Est GFR (Non-Af Amer) TNP 07/28/17 05:00 BUN/Creatinine Ratio 12.0 07/28/17 05:00 Glucose 109 mg/dL (70-105) H 07/28/17 05:00 Whole Bld Lactic Acid 0.60 mmol/L (0.60-1.99) 07/25/17 13:00 Uric Acid 4.1 mg/dL (2.3-6.6) 07/27/17 06:08 Calcium 8.6 mg/dL (8.6-10.3) 07/28/17 05:00 Total Bilirubin 0.7 mg/dL (0.3-1.0) 07/25/17 13:00 AST 43 U/L (13-39) H 07/25/17 13:00 ALT 19 U/L (7-52) 07/25/17 13:00 Alkaline Phosphatase 64 U/L (34-104) 07/25/17 13:00 Creatine Kinase 201 U/L (30-223) 07/25/17 13:00 Troponin I < 0.01 ng/mL (0.01-0.05) L 07/25/17 13:00 Total Protein 7.0 gm/dL (6.0-8.3) 07/25/17 13:00 Albumin 4.2 gm/dL (3.7-5.3) 07/25/17 13:00 Globulin 2.8 gm/dL 07/25/17 13:00 Albumin/Globulin Ratio 1.5 (1.0-1.8) 07/25/17 13:00 TSH 1.18 uIU/ml (0.34-5.60) 07/27/17 06:08 Urine Source MIDSTREAM 07/27/17 02:38 Urine Color YELLOW 07/27/17 02:38 Urine Clarity CLEAR (CLEAR) 07/27/17 02:38 Urine pH 6.5 (4.6 - 8.0) 07/27/17 02:38 Ur Specific Outing <= 1.005 (1.005-1.030) 07/27/17 02:38 Urine Protein NEGATIVE mg/dL (NEGATIVE) 07/27/17 02:38 Urine Glucose (UA) NEGATIVE mg/dL (NEGATIVE) 07/27/17 02:38 Urine Ketones NEGATIVE mg/dL (NEGATIVE) 07/27/17 02:38 Urine Blood NEGATIVE (NEGATIVE) 07/27/17 02:38 Urine Nitrate NEGATIVE (NEGATIVE) 07/27/17 02:38 Urine Bilirubin NEGATIVE (NEGATIVE) 07/27/17 02:38 Urine Urobilinogen 0.2 E.U./dL (0.2 - 1.0) 07/27/17 02:38 Ur Leukocyte Esterase NEGATIVE (NEGATIVE) 07/27/17 02:38 Urine RBC 0-2 /hpf (0-5) 07/27/17 02:38 Urine WBC 0-2 /hpf (0-5) 07/27/17 02:38 Ur Epithelial Cells FEW /lpf (FEW) 07/27/17 02:38 Urine Bacteria FEW /hpf (NONE SEEN) 07/27/17 02:38 Ur Random Sodium 49 mmol/L 07/27/17 02:38 - Physical Exam Vitals and I&O: Vital Signs Temp 96.2 F 07/28/17 13:48 Pulse 68 07/28/17 13:48 Resp 17 07/28/17 13:48 BP 134/65 07/28/17 13:48 Pulse Ox 99 07/28/17 13:48 Intake & Output 07/27/17 07/28/17 07/28/17 18:59 06:59 18:59 Intake Total 2700 2390.446 1535 Balance 2700 9096.847 0714 Weight (lbs) 64.047 kg 58.967 kg 58.967 kg Intake: Intake, IV Amount 1000 076.302 7202 Sodium Chloride 0.9% 1, 1000 076.148 8024 000 ml @ 100 mls/hr IV . Q10H [facility] Rx#:[id number] Oral 1700 200 Other: # Voids 5 3 # Bowel Movements 1 Stool Characteristics Soft Soft Soft Formed Formed Formed Weight Source Bedscale Bedscale Bedscale Active Medications: Current Medications Acetaminophen (Tylenol) 650 mg PO Q4HR PRN PRN Reason: Pain or Fever >101 Stop: 09/23/17 19:03 Albuterol Sulfate (Albuterol 2.5mg/3ml Neb Ud) 2.5 mg HHN Q4HRT [facility] Stop: 09/23/17 18:59 Last Admin: 07/28/17 11:42 Dose: 2.5 mg Albuterol Sulfate (Albuterol 2.5mg/3ml Neb Ud) 2.5 mg HHN Q4HR PRN PRN Reason: cough/wheeze Stop: 09/23/17 19:03 Amlodipine Besylate (Norvasc) 5 mg PO DAILY [facility] Stop: 09/24/17 08:59 Last Admin: 07/28/17 09:13 Dose: 5 mg Aspirin (Aspirin) 325 mg PO DAILY [facility] Stop: 09/24/17 08:59 Last Admin: 07/28/17 09:14 Dose: 325 mg Cilostazol (Pletal) 100 mg PO BID [facility] Stop: 09/24/17 08:59 Last Admin: 07/28/17 09:14 Dose: 100 mg Cyanocobalamin (Vitamin B12) 1,000 mcg PO DAILY [facility] Stop: 09/24/17 08:59 Last Admin: 07/28/17 09:13 Dose: 1,000 mcg Docusate Sodium (Colace) 100 mg PO DAILY [facility] Stop: 09/24/17 08:59 Last Admin: 07/28/17 09:12 Dose: 100 mg Donepezil HCl (Aricept) 10 mg PO DAILY [facility] Stop: 09/24/17 08:59 Last Admin: 07/28/17 09:13 Dose: 10 mg Escitalopram Oxalate (Lexapro) 5 mg PO HS [facility]; Protocol Stop: 09/23/17 20:59 Last Admin: 07/27/17 20:27 Dose: 5 mg Gabapentin (Neurontin) 300 mg PO TID [facility] Stop: 09/23/17 20:59 Last Admin: 07/28/17 09:25 Dose: Not Given Guaifenesin/Dextromethorphan (Robitussin Dm) 10 ml PO Q4HR [facility] Stop: 08/01/17 19:59 Last Admin: 07/28/17 12:27 Dose: 10 ml Guaifenesin/Dextromethorphan (Robitussin Dm) 10 ml PO Q6HR PRN PRN Reason: Cough Stop: 09/23/17 19:03 Sodium Chloride (Nacl 0.9%) 1,000 mls @ 100 mls/hr IV .Q10H [facility] Stop: 09/23/17 18:30 Last Admin: 07/28/17 12:26 Dose: 100 mls/hr Lisinopril (Zestril) 5 mg PO DAILY [facility] Stop: 09/24/17 08:59 Last Admin: 07/28/17 09:12 Dose: 5 mg Magnesium Hydroxide (Milk Of Magnesia) 30 ml PO HS PRN PRN Reason: Constipation Stop: 09/23/17 19:03 Sodium Chloride (Nacl Tab) 1 gm PO BID [facility] Stop: 09/24/17 08:59 Last Admin: 07/28/17 09:14 Dose: 1 gm Tramadol HCl (Ultram) 50 mg PO Q6H PRN PRN Reason: PAIN Stop: 09/23/17 19:03 General: Alert, No acute distress HEENT: Atraumatic, PERRLA, Mucous membr. 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 Psychosis Alzh Dementia Ess Htn S/P CVA PUD - Plan Plan: Lab - Result Diagrams 07/27/17 06:08 07/27/17 06:08 Current Medications Acetaminophen (Tylenol) 650 mg PO Q4HR PRN PRN Reason: Pain or Fever >101 Stop: 09/23/17 19:03 Albuterol Sulfate (Albuterol 2.5mg/3ml Neb Ud) 2.5 mg HHN Q4HRT [facility] Stop: 09/23/17 18:59 Last Admin: 07/27/17 12:03 Dose: 2.5 mg Albuterol Sulfate (Albuterol 2.5mg/3ml Neb Ud) 2.5 mg HHN Q4HR PRN PRN Reason: cough/wheeze Stop: 09/23/17 19:03 Amlodipine Besylate (Norvasc) 5 mg PO DAILY [facility] Stop: 09/24/17 08:59 Last Admin: 07/27/17 09:23 Dose: 5 mg Aspirin (Aspirin) 325 mg PO DAILY [facility] Stop: 09/24/17 08:59 Last Admin: 07/27/17 09:23 Dose: 325 mg Cilostazol (Pletal) 100 mg PO BID [facility] Stop: 09/24/17 08:59 Last Admin: 07/27/17 09:22 Dose: 100 mg Cyanocobalamin (Vitamin B12) 1,000 mcg PO DAILY [facility] Stop: 09/24/17 08:59 Last Admin: 07/27/17 09:24 Dose: 1,000 mcg Docusate Sodium (Colace) 100 mg PO DAILY [facility] Stop: 09/24/17 08:59 Last Admin: 07/27/17 09:23 Dose: 100 mg Donepezil HCl (Aricept) 10 mg PO DAILY [facility] Stop: 09/24/17 08:59 Last Admin: 07/27/17 09:22 Dose: 10 mg Escitalopram Oxalate (Lexapro) 5 mg PO HS [facility]; Protocol Stop: 09/23/17 20:59 Last Admin: 07/26/17 20:22 Dose: 5 mg Gabapentin (Neurontin) 300 mg PO TID [facility] Stop: 09/23/17 20:59 Last Admin: 07/27/17 09:23 Dose: 300 mg Guaifenesin/Dextromethorphan (Robitussin Dm) 10 ml PO Q4HR [facility] Stop: 08/01/17 19:59 Last Admin: 07/27/17 12:31 Dose: 10 ml Guaifenesin/Dextromethorphan (Robitussin Dm) 10 ml PO Q6HR PRN PRN Reason: Cough Stop: 09/23/17 19:03 Sodium Chloride (Nacl 0.9%) 1,000 mls @ 100 mls/hr IV .Q10H [facility] Stop: 09/23/17 18:30 Last Admin: 07/27/17 02:35 Dose: 100 mls/hr Lisinopril (Zestril) 5 mg PO DAILY [facility] Stop: 09/24/17 08:59 Last Admin: 07/27/17 09:22 Dose: 5 mg Magnesium Hydroxide (Milk Of Magnesia) 30 ml PO HS PRN PRN Reason: Constipation Stop: 09/23/17 19:03 Sodium Chloride (Nacl Tab) 1 gm PO BID [facility] Stop: 09/24/17 08:59 Last Admin: 07/27/17 09:23 Dose: 1 gm Tramadol HCl (Ultram) 50 mg PO Q6H PRN PRN Reason: PAIN Stop: 09/23/17 19:03 Lab - Result Diagrams 07/27/17 06:08 07/28/17 05:00 Na stable @ 132 gradually regaining strenght continue NS f/u electrolytes
[2017-07-28 16:18] LABS: FOLIC ACID 12.9 ng/mL (>3.0)
== END 2017-07-28 15:00 | DRG 811 ==
LOC: ER 12:27 → MSI 17:21
PROVIDERS: ADMIT Internal Medicine; ATTEND Internal Medicine
DX: D64.9 Anemia, unspecified (principal); G93.40 Encephalopathy, unspecified; E22.2 Syndrome of inappropriate secretion of antidiuretic hormone; D72.819 Decreased white blood cell count, unspecified; J44.9 Chronic obstructive pulmonary disease, unspecified; F03.90 Unspecified dementia, unspecified severity, without behavioral disturbance, psychotic disturbance, mood disturbance, and anxiety; E78.5 Hyperlipidemia, unspecified; K27.9 Peptic ulcer, site unspecified, unspecified as acute or chronic, without hemorrhage or perforation; I10 Essential (primary) hypertension; Z86.73 Personal history of transient ischemic attack (TIA), and cerebral infarction without residual deficits; Z82.49 Family history of ischemic heart disease and other diseases of the circulatory system; Z83.3 Family history of diabetes mellitus; Z87.11 Personal history of peptic ulcer disease; Z98.51 Tubal ligation status; Z88.8 Allergy status to other drugs, medicaments and biological substances
CPT/HCPCS: 36415-UA; 71045-TC; 76700-TC; 80048-TC; 80053-TC; 81001-TC; 82550-TC; 82607-90; 82746-90; 83605; 84300-TC; 84443-TC; 84484-TC; 84550-TC; 85025-TC; 85610-TC; 85730-TC; 93005; 94640; 94760; J7030; J7613; X3904; Z7610

== ENCOUNTER 2018-07-13 14:01 | Inpatient (IN) | payer MEDICARE, MEDICAID ==
--- NOTE | 2018-07-13 14:38 | ED Physician Chart ---
ED Chief Complaint/HPI - Patient Information Date Seen:: 07/13/18 Time Seen:: 14:30 Chief Complaint:: aggressive behavior History of Present Illness:: Patient has reportedly been striking out and refusing care and refusing medications at her extended care facility. Allergies:: Allergies Allergy/AdvReac Type Severity Reaction Status Date / Time lovastatin Allergy Verified 07/25/17 12:45 Vitals:: Vital Signs - 8 hr 07/13/18 14:05 Temp 97.9 F HR 74 RR 18 BP 160/74 O2 Sat % 99 Historian:: Patient Review:: Transfer documents Reviewed ED Review of Systems - Review of Systems General/Constitutional: No fever, No chills, No weight loss, No weakness, No diaphoresis, No edema, No loss of appetite Skin: No skin lesions, No rash, No bruising Head: No headache, No light-headedness Eyes: No loss of vision, No pain, No diplopia ENT: No earache, No nasal drainage, No sore throat, No tinnitus Neck: No neck pain, No swelling, No thyromegaly, No stiffness, No mass noted Cardio Vascular: No chest pain, No palpitations, No PND, No orthopnea, No edema Pulmonary: No SOB, No cough, No sputum, No wheezing GI: No nausea, No vomiting, No diarrhea, No pain, No melena, No hematochezia, No constipation, No hematemesis G/U: No dysuria, No frequency, No hematuria Musculoskeletal: No bone or joint pain, No back pain, No muscle pain Endocrine: No polyuria, No polydipsia Psychiatric: Prior psych history, No depression, No anxiety, No suicidal ideation Hematopoietic: No bruising, No lymphadenopathy Allergic/Immuno: No urticaria, No angioedema Neurological: No syncope, No focal symptoms, No weakness, No paresthesia, No headache, No seizure, No dizziness, No confusion, No vertigo ED Past Medical History - Past Medical History Past Medical History: HTN, Asthma/COPD, PUD/GERD, Dementia, Other (hyponatremia ; right shoulder pain; polyneuropathy; history of TIA and CVA; history of psychosis; history of migraines) Family History: HTN Social History: Care Facility Employment:: Quit smoking about 10 years ago Surgical History: , other (low back) Medication: Reviewed Family Medical History - Family Member Mother History Unknown: Yes Ethnicity: Non- Hx Family Cancer: No Hx Family Coronary Artery Disease: No Hx Family Congestive Heart Failure: No Hx Family Hypertension: No Hx Family Stroke: No Hx Family Diabetes: No Hx Family Seizures: No Hx Family Dementia: No Hx Family AIDS: No Hx Family HIV: No Hx Family COPD: No Hx Family Hepatitis: No Hx Family Psychiatric Problems: No Hx Family Tuberculosis: No Father History Unknown: Yes Ethnicity: Non- Hx Family Cancer: No Hx Family Coronary Artery Disease: No Hx Family Congestive Heart Failure: No Hx Family Hypertension: No Hx Family Stroke: No Hx Family Diabetes: No Hx Family Seizures: No Hx Family Dementia: No Hx Family AIDS: No Hx Family HIV: No Hx Family COPD: No Hx Family Hepatitis: No Hx Family Psychiatric Problems: No Hx Family Tuberculosis: No ED Physical Exam - Physical Examination General/Constitutional: Awake, Well-developed, well-nourished, Alert Other Gen/Cons comments:: Uncertain of the year Head: Atraumatic Eyes: Lids, conjuctiva normal, PERRL, EOMI ENMT: External ears, nose nl, Lips, teeth, gums nl Neck: No nuchal rigidity Respiratory: Nl effort/Exclusion Other Respiratory comments:: Decreased breath sounds and minimal scattered wheezing Cardio Vascular: RRR, No murmur, gallop, rubs, NL S1 S2 GI: No tenderness/rebounding/guarding, No organomegaly, No hernia, Normal BS's, Nondistended, No mass/bruits Extremities: Normal digits & nails Neuro/Psych: No focal deficits ED Labs/Radiology/EKG Results - Radiology Results Results: Laboratory Results WBC 5.5 Th/cmm (4.8-10.8) 07/13/18 14:50 RBC 4.27 Mil/cmm (3.80-5.20) 07/13/18 14:50 Hgb 11.9 gm/dL (12-16) L 07/13/18 14:50 Hct 36.5 % (41.0-60) L 07/13/18 14:50 MCV 85.4 fl (81-100) 07/13/18 14:50 MCH 27.8 pg (27.0-31.0) 07/13/18 14:50 MCHC Differential 32.5 pg (28.0-36.0) 07/13/18 14:50 RDW 14.0 % (11.5-20.0) 07/13/18 14:50 Plt Count 282 Th/cmm (150-400) 07/13/18 14:50 MPV 7.1 fl 07/13/18 14:50 Neutrophils % 55.3 % (40.0-80.0) 07/13/18 14:50 Lymphocytes % 33.5 % (20.0-50.0) 07/13/18 14:50 Monocytes % 10.1 % (2.0-10.0) H 07/13/18 14:50 Eosinophils % 0.7 % (0.0-5.0) 07/13/18 14:50 Basophils % 0.4 % (0.0-2.0) 07/13/18 14:50 Sodium 138 mEq/L (136-145) 07/13/18 14:50 Potassium 4.0 mEq/L (3.5-5.1) 07/13/18 14:50 Chloride 104 mEq/L (98-107) 07/13/18 14:50 Carbon Dioxide 28.9 mEq/L (21.0-31.0) 07/13/18 14:50 Anion Gap 9.1 (7.0-16.0) 07/13/18 14:50 BUN 18 mg/dL (7-25) 07/13/18 14:50 Creatinine 1.0 mg/dL (0.6-1.2) 07/13/18 14:50 Est GFR ( Amer) TNP 07/13/18 14:50 Est GFR (Non-Af Amer) TNP 07/13/18 14:50 BUN/Creatinine Ratio 18.0 07/13/18 14:50 Glucose 103 mg/dL (70-105) 07/13/18 14:50 Calcium 9.5 mg/dL (8.6-10.3) 07/13/18 14:50 Total Bilirubin 0.3 mg/dL (0.3-1.0) 07/13/18 14:50 AST 51 U/L (13-39) H 07/13/18 14:50 ALT 22 U/L (7-52) 07/13/18 14:50 Alkaline Phosphatase 103 U/L (34-104) 07/13/18 14:50 Total Protein 7.3 gm/dL (6.0-8.3) 07/13/18 14:50 Albumin 4.3 gm/dL (3.7-5.3) 07/13/18 14:50 Globulin 3.0 gm/dL 07/13/18 14:50 Albumin/Globulin Ratio 1.4 (1.0-1.8) 07/13/18 14:50 Triglycerides 45 mg/dL (<150) 07/13/18 14:50 Cholesterol 193 mg/dL (<200) 07/13/18 14:50 LDL Cholesterol Direct 101 mg/dL (75-193) 07/13/18 14:50 HDL Cholesterol 69 mg/dL (23-92) 07/13/18 14:50 Salicylates < 25.0 mg/L (30.0-100.0) L 07/13/18 14:50 Acetaminophen < 10.0 ug/mL (10.0-30.0) L 07/13/18 14:50 Ethyl Alcohol < 10 mg/dL (0-10) 07/13/18 14:50 - EKG Interpretations Rate & Rhythm: normal sinus rhythm with a rate of 64 [place]: normal Comments:: Right bundle-branch block ED Septic Shock - . Is Septic Shock (SBP<90, OR Lactate>4 mmol\L) present?: No - <6hrs of presentation: Vital Signs: Vital Signs - 8 hr 07/13/18 14:05 Temp 97.9 F HR 74 RR 18 BP 160/74 O2 Sat % 99 ED Reassessment (Disposition) - Reassessment Reassessment Condition:: Unchanged - Diagnosis Diagnosis:: Dementia with aggressive behavior - Patient Disposition Admitted to:: [facility] Admitting Medical Physician:: Phan Hernandez Admitting Psych Physician:: Elias Cruz Condition at Disposition:: Stable, Unchanged
[2018-07-13 14:56] LABS: % BASOPHILS 0.4 % (0.0-2.0); % EOSINOPHILS 0.7 % (0.0-5.0); % LYMPHOCYTES 33.5 % (20.0-50.0); % MONOCYTES 10.1 % (2.0-10.0); % NEUTROPHILS 55.3 % (40.0-80.0); HEMATOCRIT 36.5 % (41.0-60); HEMOGLOBIN 11.9 gm/dL (12-16); LYMPHOCYTE ABSOLUTE 1.8 Th/cmm (1.5-3.0); MEAN CELL VOLUME 85.4 fl (81-100); MEAN CORPUSCULAR HEMOGLOBIN 27.8 pg (27.0-31.0); MEAN CORPUSCULAR HGB CONC 32.5 pg (28.0-36.0); MONOCYTE ABSOLUTE 0.6 Th/cmm (0.3-1.0); NEUTROPHILE ABSOLUTE 3.1 Th/cmm (1.8-8.0); PLATELET COUNT 282 Th/cmm (150-400); RED BLOOD COUNT 4.27 Mil/cmm (3.80-5.20); WHITE BLOOD COUNT 5.5 Th/cmm (4.8-10.8)
[2018-07-13 15:15] LABS: ACETAMINOPHEN < 10.0 ug/mL (10.0-30.0); ALB/GLOB RATIO 1.4 (1.0-1.8); ALBUMIN 4.3 gm/dL (3.7-5.3); ALKALINE PHOSPHATASE 103 U/L (34-104); ANION GAP 9.1 (7.0-16.0); BILIRUBIN,TOTAL 0.3 mg/dL (0.3-1.0); BUN - UREA NITROGEN 18 mg/dL (7-25); CALCIUM SERUM 9.5 mg/dL (8.6-10.3); CARBON DIOXIDE 28.9 mEq/L (21.0-31.0); CHLORIDE 104 mEq/L (98-107); CHOLESTEROL 193 mg/dL (<200); GLUCOSE 103 mg/dL (70-105); HDL -HIGH DENSITY LIPOPROTEIN 69 mg/dL (23-92); SGOT 51 U/L (13-39); SGPT/ALT 22 U/L (7-52); SODIUM SERUM 138 mEq/L (136-145); TOTAL PROTEIN,SERUM 7.3 gm/dL (6.0-8.3); TRIGLYCERIDES 45 mg/dL (<150)
[2018-07-13 16:43] LABS: URINE SOURCE CLEAN C
[2018-07-13 16:47] LABS: URINE BILIRUBIN NEGATIVE (NEGATIVE); URINE BLOOD NEGATIVE (NEGATIVE); URINE GLUCOSE (UA) NEGATIVE (NEGATIVE); URINE KETONE NEGATIVE (NEGATIVE); URINE LEUKOCYTE ESTERASE TRACE (NEGATIVE); URINE MICROSCOPIC INDICATED? YES; URINE NITRATE NEGATIVE (NEGATIVE); URINE PH 6.5 (4.6 - 8.0); URINE PROTEIN TRACE mg/dL (NEGATIVE); URINE UROBILINOGEN 0.2 E.U./dL (0.2 - 1.0)
[2018-07-13] MEDS ORDERED: Maalox 30 mL Cup PO PRN ×2 (16:50→17:04)
[2018-07-13] MEDS ORDERED: Magnesium Hydroxide (MOM) 30 mL UDC PO PRN ×2 (16:50→17:10)
[2018-07-13 16:55] LABS: URINE CLARITY SLIGHT HAZY (CLEAR); URINE COLOR YELLOW
[2018-07-13 16:59] LABS: URINE RBC 0-2 /hpf (0-5); URINE WBC 0-2 /hpf (0-5)
[2018-07-13 17:00] LABS: URINE BACTERIA FEW /hpf (NONE SEEN); URINE EPITHELIAL CELLS FEW /lpf (FEW)
[2018-07-13 17:01] LABS: AMPHETAMINE URINE NEGATIVE (NEGATIVE); BARBITURATES URINE NEGATIVE (NEGATIVE); BENZODIAZEPINES QUAL URINE NEGATIVE (NEGATIVE); CANNABINOID THC NEGATIVE (NEGATIVE); COCAINE METABOLITE QUAL URINE NEGATIVE (NEGATIVE); METHADONE URINE NEGATIVE (NEGATIVE); METHAMPHETAMINES QUAL URINE NEGATIVE (NEGATIVE); OPIATES (MORPHINE) QUAL. URINE NEGATIVE (NEGATIVE); PHENCYCLIDINE (PCP) URINE NEGATIVE (NEGATIVE); TRICYCLICS (TCA) QUAL. URINE NEGATIVE (NEGATIVE)
[2018-07-13 17:04] VITALS: BP 160/72
[2018-07-13] MEDS ORDERED: Acetaminophen 500 MG TAB PO PRN (17:04)
[2018-07-13] MEDS ORDERED: Albuterol Nebulizer 2.5mg/3mL HHN PRN (17:04)
[2018-07-13] MEDS ORDERED: Guaifenesin DM 10 ML UDC PO PRN (17:04)
--- NOTE | 2018-07-13 19:02 | History & Physical ---
ADMIT DATE: 07/13/2018 CHIEF COMPLAINT: Aggressive behavior. HISTORY OF PRESENT ILLNESS: This is a 77-year-old female who is a [facility] resident, admitted to the Geropsych Unit due to refusing care and aggressive behavior towards nursing staff at the [facility]. PAST MEDICAL HISTORY: Hypertension, asthma, COPD, GERD, dementia, hyponatremia, polyneuropathy, TIA, CVA, psychosis, migraines. FAMILY HISTORY: Noncontributory. SOCIAL HISTORY: The patient is a [facility] resident. The patient is a former smoker. SURGICAL HISTORY: . MEDICATIONS: See medication list. REVIEW OF SYSTEMS: GENERAL: Denies any fever or chills. CARDIOVASCULAR: Denies chest pain. RESPIRATORY: Denies shortness of breath. GASTROINTESTINAL: Denies nausea, vomiting or abdominal pain. GENITOURINARY: Denies nausea, vomiting or abdominal pain. NEUROLOGIC: No headache, seizure or syncope. All systems are reviewed and are negative. PHYSICAL EXAMINATION: GENERAL: Elderly female, awake, alert with some confusion. No apparent distress. VITAL SIGNS: Temperature 97.9, heart rate 74, blood pressure 160/74, respirations 18, O2 99%. HEENT: Head; normocephalic, atraumatic. NECK: Supple. No mass. LUNGS: Clear bilaterally. HEART: Regular rate and rhythm. ABDOMEN: Soft, nontender. LABORATORY DATA: WBC 5.5, H and H 11.9 and 36.5, platelet of 282. Sodium 130, potassium 4.0, chloride 104, BUN 18, creatinine 1.0. ASSESSMENT: Aggressive behavior, hypertension, COPD, asthma, dementia, history of hyponatremia, polyneuropathy, history of TIA, history of CVA, psychosis and history of migraines. PLAN: Fall precautions will be initiated. We will continue the patient's [facility] medications. We will continue to monitor the patient. JOB# [id number]
[2018-07-14 06:06] LABS: A1C 5.9 % (4.8-5.6)
[2018-07-14] MEDS: Escitalopram Oxalate 5 mg Tab PO SCH (08:35)
[2018-07-14] MEDS: Pantoprazole 40 mg EC Tab PO SCH (08:35)
[2018-07-14] MEDS: Multivitamin Tab PO SCH (08:36)
--- NOTE | 2018-07-14 11:06 | Internal Medicine Prog Note ---
Internal Medicine Subjective - Subjective Service Date: 07/14/18 Patient seen and examined:: with staff Patient is:: awake, verbal, agitated, confused Patient Complaints of:: other (Aggressive behavior.) Per staff patient has:: no adverse event, no episodes of fall Internal Medicine Objective - Results Result Diagrams: 07/13/18 14:50 07/13/18 14:50 Recent Labs: Laboratory Last Values WBC 5.5 Th/cmm (4.8-10.8) 07/13/18 14:50 RBC 4.27 Mil/cmm (3.80-5.20) 07/13/18 14:50 Hgb 11.9 gm/dL (12-16) L 07/13/18 14:50 Hct 36.5 % (41.0-60) L 07/13/18 14:50 MCV 85.4 fl (81-100) 07/13/18 14:50 MCH 27.8 pg (27.0-31.0) 07/13/18 14:50 MCHC Differential 32.5 pg (28.0-36.0) 07/13/18 14:50 RDW 14.0 % (11.5-20.0) 07/13/18 14:50 Plt Count 282 Th/cmm (150-400) 07/13/18 14:50 MPV 7.1 fl 07/13/18 14:50 Neutrophils % 55.3 % (40.0-80.0) 07/13/18 14:50 Lymphocytes % 33.5 % (20.0-50.0) 07/13/18 14:50 Monocytes % 10.1 % (2.0-10.0) H 07/13/18 14:50 Eosinophils % 0.7 % (0.0-5.0) 07/13/18 14:50 Basophils % 0.4 % (0.0-2.0) 07/13/18 14:50 Sodium 138 mEq/L (136-145) 07/13/18 14:50 Potassium 4.0 mEq/L (3.5-5.1) 07/13/18 14:50 Chloride 104 mEq/L (98-107) 07/13/18 14:50 Carbon Dioxide 28.9 mEq/L (21.0-31.0) 07/13/18 14:50 Anion Gap 9.1 (7.0-16.0) 07/13/18 14:50 BUN 18 mg/dL (7-25) 07/13/18 14:50 Creatinine 1.0 mg/dL (0.6-1.2) 07/13/18 14:50 Est GFR ( Amer) TNP 07/13/18 14:50 Est GFR (Non-Af Amer) TNP 07/13/18 14:50 BUN/Creatinine Ratio 18.0 07/13/18 14:50 Glucose 103 mg/dL (70-105) 07/13/18 14:50 Calcium 9.5 mg/dL (8.6-10.3) 07/13/18 14:50 Total Bilirubin 0.3 mg/dL (0.3-1.0) 07/13/18 14:50 AST 51 U/L (13-39) H 07/13/18 14:50 ALT 22 U/L (7-52) 07/13/18 14:50 Alkaline Phosphatase 103 U/L (34-104) 07/13/18 14:50 Total Protein 7.3 gm/dL (6.0-8.3) 07/13/18 14:50 Albumin 4.3 gm/dL (3.7-5.3) 07/13/18 14:50 Globulin 3.0 gm/dL 07/13/18 14:50 Albumin/Globulin Ratio 1.4 (1.0-1.8) 07/13/18 14:50 Triglycerides 45 mg/dL (<150) 07/13/18 14:50 Cholesterol 193 mg/dL (<200) 07/13/18 14:50 LDL Cholesterol Direct 101 mg/dL (75-193) 07/13/18 14:50 HDL Cholesterol 69 mg/dL (23-92) 07/13/18 14:50 TSH 0.95 uIU/ml (0.34-5.60) 07/13/18 14:50 Urine Source CLEAN C 07/13/18 16:20 Urine Color YELLOW 07/13/18 16:20 Urine Clarity SLIGHT HAZY (CLEAR) 07/13/18 16:20 Urine pH 6.5 (4.6 - 8.0) 07/13/18 16:20 Ur Specific [place] 1.015 (1.005-1.030) 07/13/18 16:20 Urine Protein TRACE mg/dL (NEGATIVE) 07/13/18 16:20 Urine Glucose (UA) NEGATIVE mg/dL (NEGATIVE) 07/13/18 16:20 Urine Ketones NEGATIVE mg/dL (NEGATIVE) 07/13/18 16:20 Urine Blood NEGATIVE (NEGATIVE) 07/13/18 16:20 Urine Nitrate NEGATIVE (NEGATIVE) 07/13/18 16:20 Urine Bilirubin NEGATIVE (NEGATIVE) 07/13/18 16:20 Urine Urobilinogen 0.2 E.U./dL (0.2 - 1.0) 07/13/18 16:20 Ur Leukocyte Esterase TRACE (NEGATIVE) H 07/13/18 16:20 Urine RBC 0-2 /hpf (0-5) 07/13/18 16:20 Urine WBC 0-2 /hpf (0-5) 07/13/18 16:20 Ur Epithelial Cells FEW /lpf (FEW) 07/13/18 16:20 Urine Bacteria FEW /hpf (NONE SEEN) 07/13/18 16:20 Salicylates < 25.0 mg/L (30.0-100.0) L 07/13/18 14:50 Urine Opiates Screen NEGATIVE (NEGATIVE) 07/13/18 16:20 Urine Methadone Screen NEGATIVE (NEGATIVE) 07/13/18 16:20 Acetaminophen < 10.0 ug/mL (10.0-30.0) L 07/13/18 14:50 Ur Barbiturates Screen NEGATIVE (NEGATIVE) 07/13/18 16:20 Ur Tricyclics Screen NEGATIVE (NEGATIVE) 07/13/18 16:20 Ur Phencyclidine Scrn NEGATIVE (NEGATIVE) 07/13/18 16:20 Amphetamines Screen NEGATIVE (NEGATIVE) 07/13/18 16:20 U Methamphetamines Scrn NEGATIVE (NEGATIVE) 07/13/18 16:20 U Benzodiazepines Scrn NEGATIVE (NEGATIVE) 07/13/18 16:20 U Cocaine Metab Screen NEGATIVE (NEGATIVE) 07/13/18 16:20 U Cannabinoids Screen NEGATIVE (NEGATIVE) 07/13/18 16:20 Ethyl Alcohol < 10 mg/dL (0-10) 07/13/18 14:50 RPR NONREACTIVE (NONREACTIVE) 07/13/18 14:50 - Physical Exam Vitals and I&O: Vital Signs Temp 97 F 07/14/18 06:15 Pulse 74 07/14/18 08:36 Resp 20 07/14/18 07:30 BP 155/76 07/14/18 08:36 Pulse Ox 97 07/14/18 07:30 Intake & Output 07/13/18 07/14/18 07/14/18 18:59 06:59 18:59 Weight (lbs) 54.431 kg Other: Stool Characteristics Formed Weight Source Patient stated Active Medications: Current Medications Acetaminophen (Tylenol Extra Strength) 1,000 mg PO Q4H PRN PRN Reason: Moderate pain Stop: 09/11/18 17:03 Acetaminophen (Tylenol) 650 mg PO Q4HR PRN PRN Reason: Pain (Mild) or Temp >101 Stop: 09/11/18 17:03 Al Hydrox/Mg Hydrox/Simethicone (Maalox) 30 ml PO Q4H PRN PRN Reason: Indigestion Stop: 09/11/18 17:03 Albuterol Sulfate (Albuterol 2.5mg/3ml Neb Ud) 2.5 mg HHN Q4HR PRN PRN Reason: cough/wheeze Stop: 09/11/18 17:03 Amlodipine Besylate (Norvasc) 5 mg PO BID [facility] Stop: 09/12/18 08:59 Last Admin: 07/14/18 08:36 Dose: 5 mg Aspirin (Ecotrin) 81 mg PO DAILY [facility] Stop: 09/12/18 08:59 Last Admin: 07/14/18 08:35 Dose: 81 mg Bisacodyl (Dulcolax 10 Mg Supp) 10 mg RC DAILY PRN PRN Reason: Constipation Stop: 09/11/18 17:03 Cilostazol (Pletal) 100 mg PO DAILY [facility] Stop: 09/12/18 08:59 Last Admin: 07/14/18 08:37 Dose: 100 mg Docusate Sodium (Colace) 250 mg PO DAILY [facility] Stop: 09/12/18 08:59 Last Admin: 07/14/18 08:35 Dose: 250 mg Donepezil HCl (Aricept) 10 mg PO HS [facility] Stop: 09/11/18 20:59 Last Admin: 07/13/18 21:14 Dose: 10 mg Escitalopram Oxalate (Lexapro) 5 mg PO DAILY [facility]; Protocol Stop: 09/12/18 08:59 Last Admin: 07/14/18 08:35 Dose: 5 mg Guaifenesin/Dextromethorphan (Robitussin Dm) 10 ml PO Q4HR PRN PRN Reason: Cough Stop: 09/11/18 17:03 Last Admin: 07/14/18 04:48 Dose: 10 ml Magnesium Hydroxide (Milk Of Magnesia) 30 ml PO HS PRN PRN Reason: Constipation Stop: 09/11/18 17:09 Multivitamins/Vitamin C (Theragran) 1 tab PO DAILY [facility] Stop: 09/12/18 08:59 Last Admin: 07/14/18 08:36 Dose: 1 tab Pantoprazole Sodium (Protonix) 40 mg PO DAILY [facility] Stop: 09/12/18 08:59 Last Admin: 07/14/18 08:35 Dose: 40 mg Psyllium Hydrophilic Mucilloid (Metamucil) 1 pkt PO BID [facility] Stop: 09/12/18 08:59 Last Admin: 07/14/18 08:37 Dose: 1 pkt Quetiapine Fumarate (Seroquel) 12.5 mg PO BID [facility]; Protocol Stop: 09/12/18 08:59 Last Admin: 07/14/18 08:36 Dose: 12.5 mg Sodium Chloride (Nacl Tab) 1 gm PO BID [facility] Stop: 09/12/18 08:59 Last Admin: 07/14/18 08:35 Dose: 1 gm Tramadol HCl (Ultram) 50 mg PO Q8H [facility] Stop: 09/11/18 17:14 Last Admin: 07/14/18 08:35 Dose: 50 mg Zolpidem Tartrate (Ambien) 5 mg PO HS PRN PRN Reason: Insomnia Stop: 09/11/18 16:49 Physical Exam: 77 y/o female patient was admitted due to Aggressive behavior and refusing care. General: weak, demented HEENT: NC/AT, PERRLA Neck: Supple, No JVD Lungs: CTAB Cardiovascular: RRR, Normal S1 Abdomen: soft, non-tender Extremities: other (Hx of polyneuropathy.) Neurological: no change Internal Medicine Assmt/Plan - Assessment Assessment: Aggressive behavior. Htn. Copd. Asthma. Dementia. History of Hyponatremia. Polyneuropathy. History of TIA. History of CVA. Psychosis. History of Migraines. - Plan Plan: Continuation of care. Monitor Vitals and Labs. Continue present meds as directed. Monitor Diet/Nutritional support. Psych management per Psych. Pain Management. Physical therapy. Occupational therapy. Safety precaution. Supportive care. Fall precaution, frequent nursing rounds, and as needed restraints to prevent fall. Continue collaborating with consulting specialists, case management and nursing team. Will Monitor patient and continue current treatment plan as ordered. Nutritional Asmnt/Malnutr-PDOC - Dietary Evaluation Malnutrition Findings (Please click <Entered> for more info): see orders.
--- NOTE | 2018-07-14 19:32 | Psychiatric Evaluation ---
DATE OF SERVICE: AGE: 77 SEX: Female. PHYSICIAN: Dr. Cruz. CHIEF COMPLAINT: Agitation and aggressive behavior. HISTORY OF PRESENT ILLNESS: The patient is a 77-year-old female with history of psychosis and dementia. The patient was transferred to the hospital because of increased agitation and increased aggressive behavior. The patient has been severely irritable and agitated and also unable to follow any directions. The patient also has been suspicious and has been paranoid. The patient also is aggressive and has been unable to follow instructions from the staff in the assisted. She also has been refusing medications and refusing care. PAST PSYCHIATRIC HISTORY: The patient has history of dementia and has history of hospitalizations. PAST MEDICAL HISTORY: Hypertension, gastroesophageal reflux disease, hyponatremia, COPD, CVA, migraine headaches. SOCIAL HISTORY: The patient lives in a assisted. No known alcohol or drug use. No known legal issues. ALLERGIES: No known allergies. MENTAL STATUS EXAMINATION: The patient appears her stated age. Anxious. Restless. Irritable mood. Thought processes are circumstantial with flight of ideas. The patient denies auditory or visual hallucinations, but suspicious and paranoid. The patient denies suicidal or homicidal ideations. The patient is alert, but disoriented to time, place, person, and situation. Intact immediate, recent aggression, impaired immediate and recent memory, intact remote memory. Poor insight and poor judgment. ASSESSMENT: PRIMARY DIAGNOSIS: Unspecified psychosis. SECONDARY DIAGNOSIS: Dementia, moderate to severe, with psychosis and behavioral disturbances. TREATMENT PLAN: We will continue to monitor her behavior and her condition closely. We will start individual as well as milieu psychotherapy. Also, we will start the patient on Seroquel and we will adjust the dose. ESTIMATED LENGTH OF STAY: 5-7 days. THE PATIENT'S STRENGTHS AND WEAKNESSES: The patient's strength is not clear at this time. Weaknesses is her ineffective coping and her poor impulse control and her impaired memory. AFTER DISCHARGE PLAN: Outpatient treatment and followup, will continue as an outpatient. The patient will return to the assisted. CRITERIA FOR DISCHARGE: Better impulse control and stabilizing psychotropic medications and establish outpatient treatment plans. JOB# [id number]
--- NOTE | 2018-07-15 07:22 | Progress Notes ---
DATE: SUBJECTIVE: Chart was reviewed and the patient interviewed. Also discussed the patient's condition with the staff and reviewed records and labs. The patient is still anxious and is still in a depressed mood. The patient also is still easily agitated and easily irritable and needs close monitoring. The patient also still seems to be suspicious and paranoid. Otherwise, the patient is continuing to take Lexapro, Aricept and Seroquel with no side effects. ASSESSMENT: The patient is still psychotic and agitated. TREATMENT PLAN: Continue to monitor her behavior and her condition. Also, continue adjusting psychotropic medications and working on behavioral modification. JOB# [id number]
[2018-07-15] MEDS: Pantoprazole 40 mg EC Tab PO SCH (09:22)
[2018-07-15] MEDS: Escitalopram Oxalate 5 mg Tab PO SCH (09:22)
[2018-07-15] MEDS: Multivitamin Tab PO SCH (09:24)
--- NOTE | 2018-07-16 00:09 | Progress Notes ---
DATE: 07/15/[address] Cruz. Case was discussed with staff of the patient, reviewed records. This is a 77-year-old female who was admitted to the hospital on 07/13/2018 with a history of psychosis, dementia, very agitated, aggressive and very irritable, unable to follow staff direction, suspicious, paranoid with a history of dementia and prior hospitalizations, came from a nursing facility. The patient continues to be irritable, agitated, and continues to have poor insight. Unable to make safe plan for self-care. No side effects with the medication, no sedation, no nausea, no extrapyramidal symptoms. She is on Seroquel 12.5 mg twice a day. I will continue to work with the patient in group therapy, milieu therapy, and adjust the medication as needed. JOB# [id number]
--- NOTE | 2018-07-16 02:11 | Progress Notes ---
DATE: 07/15/2018 SUBJECTIVE: The patient was seen in her room. The patient is asleep, but easily arousable. The patient appears to be confused due to medical condition. Appears to be suspicious, irritated, easily gets frustrated with occasional behavioral outbursts. Otherwise, the patient appears to be in no acute distress. OBJECTIVE: VITAL SIGNS: Temperature 98.1, heart rate 71, blood pressure 154/78, respirations 20, 98% on room air. HEENT: Head is atraumatic and normocephalic. Eyes: Bilateral conjunctivae are clear. Bilateral pupils are equally round and reactive. NECK: Supple. No JVD. CARDIOVASCULAR: S1 and S2 without murmur. PULMONARY: Clear to auscultation. GASTROINTESTINAL: Soft and nontender without guarding. Positive bowel sounds. MUSCULOSKELETAL: No clubbing. No cyanosis noted. ASSESSMENT: 1. Psychosis. 2. Dementia. 3. Hypertension. 4. Chronic obstructive pulmonary disease. 5. History of cerebrovascular accident. 6. Neuropathy. PLAN: Keep the patient in inpatient psychiatric unit. We will followup with a psychiatrist to monitor the patient's condition and behavior. We put the patient on fall precaution. Treatment plans were discussed with the patient's nurse. Treatment plans were discussed with Dr. Hernandez. JOB# [id number]
[2018-07-16] MEDS: Pantoprazole 40 mg EC Tab PO SCH (09:09)
[2018-07-16] MEDS: Multivitamin Tab PO SCH (09:09)
[2018-07-16] MEDS: Escitalopram Oxalate 5 mg Tab PO SCH (09:10)
--- NOTE | 2018-07-16 18:39 | Internal Medicine Prog Note ---
Internal Medicine Subjective - Subjective Service Date: 07/16/18 Patient seen and examined:: with staff Patient is:: awake, verbal, agitated, confused Patient Complaints of:: other (reamains having Aggressive behavior and easily frustrated.) Per staff patient has:: no adverse event, no episodes of fall Internal Medicine Objective - Results Result Diagrams: 07/13/18 14:50 07/13/18 14:50 Recent Labs: Laboratory Last Values WBC 5.5 Th/cmm (4.8-10.8) 07/13/18 14:50 RBC 4.27 Mil/cmm (3.80-5.20) 07/13/18 14:50 Hgb 11.9 gm/dL (12-16) L 07/13/18 14:50 Hct 36.5 % (41.0-60) L 07/13/18 14:50 MCV 85.4 fl (81-100) 07/13/18 14:50 MCH 27.8 pg (27.0-31.0) 07/13/18 14:50 MCHC Differential 32.5 pg (28.0-36.0) 07/13/18 14:50 RDW 14.0 % (11.5-20.0) 07/13/18 14:50 Plt Count 282 Th/cmm (150-400) 07/13/18 14:50 MPV 7.1 fl 07/13/18 14:50 Neutrophils % 55.3 % (40.0-80.0) 07/13/18 14:50 Lymphocytes % 33.5 % (20.0-50.0) 07/13/18 14:50 Monocytes % 10.1 % (2.0-10.0) H 07/13/18 14:50 Eosinophils % 0.7 % (0.0-5.0) 07/13/18 14:50 Basophils % 0.4 % (0.0-2.0) 07/13/18 14:50 Sodium 138 mEq/L (136-145) 07/13/18 14:50 Potassium 4.0 mEq/L (3.5-5.1) 07/13/18 14:50 Chloride 104 mEq/L (98-107) 07/13/18 14:50 Carbon Dioxide 28.9 mEq/L (21.0-31.0) 07/13/18 14:50 Anion Gap 9.1 (7.0-16.0) 07/13/18 14:50 BUN 18 mg/dL (7-25) 07/13/18 14:50 Creatinine 1.0 mg/dL (0.6-1.2) 07/13/18 14:50 Est GFR ( Amer) TNP 07/13/18 14:50 Est GFR (Non-Af Amer) TNP 07/13/18 14:50 BUN/Creatinine Ratio 18.0 07/13/18 14:50 Glucose 103 mg/dL (70-105) 07/13/18 14:50 Calcium 9.5 mg/dL (8.6-10.3) 07/13/18 14:50 Total Bilirubin 0.3 mg/dL (0.3-1.0) 07/13/18 14:50 AST 51 U/L (13-39) H 07/13/18 14:50 ALT 22 U/L (7-52) 07/13/18 14:50 Alkaline Phosphatase 103 U/L (34-104) 07/13/18 14:50 Total Protein 7.3 gm/dL (6.0-8.3) 07/13/18 14:50 Albumin 4.3 gm/dL (3.7-5.3) 07/13/18 14:50 Globulin 3.0 gm/dL 07/13/18 14:50 Albumin/Globulin Ratio 1.4 (1.0-1.8) 07/13/18 14:50 Triglycerides 45 mg/dL (<150) 07/13/18 14:50 Cholesterol 193 mg/dL (<200) 07/13/18 14:50 LDL Cholesterol Direct 101 mg/dL (75-193) 07/13/18 14:50 HDL Cholesterol 69 mg/dL (23-92) 07/13/18 14:50 TSH 0.95 uIU/ml (0.34-5.60) 07/13/18 14:50 Urine Source CLEAN C 07/13/18 16:20 Urine Color YELLOW 07/13/18 16:20 Urine Clarity SLIGHT HAZY (CLEAR) 07/13/18 16:20 Urine pH 6.5 (4.6 - 8.0) 07/13/18 16:20 Ur Specific [place] 1.015 (1.005-1.030) 07/13/18 16:20 Urine Protein TRACE mg/dL (NEGATIVE) 07/13/18 16:20 Urine Glucose (UA) NEGATIVE mg/dL (NEGATIVE) 07/13/18 16:20 Urine Ketones NEGATIVE mg/dL (NEGATIVE) 07/13/18 16:20 Urine Blood NEGATIVE (NEGATIVE) 07/13/18 16:20 Urine Nitrate NEGATIVE (NEGATIVE) 07/13/18 16:20 Urine Bilirubin NEGATIVE (NEGATIVE) 07/13/18 16:20 Urine Urobilinogen 0.2 E.U./dL (0.2 - 1.0) 07/13/18 16:20 Ur Leukocyte Esterase TRACE (NEGATIVE) H 07/13/18 16:20 Urine RBC 0-2 /hpf (0-5) 07/13/18 16:20 Urine WBC 0-2 /hpf (0-5) 07/13/18 16:20 Ur Epithelial Cells FEW /lpf (FEW) 07/13/18 16:20 Urine Bacteria FEW /hpf (NONE SEEN) 07/13/18 16:20 Salicylates < 25.0 mg/L (30.0-100.0) L 07/13/18 14:50 Urine Opiates Screen NEGATIVE (NEGATIVE) 07/13/18 16:20 Urine Methadone Screen NEGATIVE (NEGATIVE) 07/13/18 16:20 Acetaminophen < 10.0 ug/mL (10.0-30.0) L 07/13/18 14:50 Ur Barbiturates Screen NEGATIVE (NEGATIVE) 07/13/18 16:20 Ur Tricyclics Screen NEGATIVE (NEGATIVE) 07/13/18 16:20 Ur Phencyclidine Scrn NEGATIVE (NEGATIVE) 07/13/18 16:20 Amphetamines Screen NEGATIVE (NEGATIVE) 07/13/18 16:20 U Methamphetamines Scrn NEGATIVE (NEGATIVE) 07/13/18 16:20 U Benzodiazepines Scrn NEGATIVE (NEGATIVE) 07/13/18 16:20 U Cocaine Metab Screen NEGATIVE (NEGATIVE) 07/13/18 16:20 U Cannabinoids Screen NEGATIVE (NEGATIVE) 07/13/18 16:20 Ethyl Alcohol < 10 mg/dL (0-10) 07/13/18 14:50 RPR NONREACTIVE (NONREACTIVE) 07/13/18 14:50 - Physical Exam Vitals and I&O: Vital Signs Temp 97.9 F 07/16/18 14:15 Pulse 70 07/16/18 17:30 Resp 18 07/16/18 14:15 BP 138/71 07/16/18 17:30 Pulse Ox 97 07/16/18 14:15 Intake & Output 07/15/18 07/16/18 07/16/18 18:59 06:59 18:59 Intake Total 960 Balance 960 Intake: Oral 960 Other: # Voids 4 # Bowel Movements 1 Active Medications: Current Medications Acetaminophen (Tylenol Extra Strength) 1,000 mg PO Q4H PRN PRN Reason: Moderate pain Stop: 09/11/18 17:03 Last Admin: 07/14/18 14:07 Dose: 1,000 mg Acetaminophen (Tylenol) 650 mg PO Q4HR PRN PRN Reason: Pain (Mild) or Temp >101 Stop: 09/11/18 17:03 Al Hydrox/Mg Hydrox/Simethicone (Maalox) 30 ml PO Q4H PRN PRN Reason: Indigestion Stop: 09/11/18 17:03 Albuterol Sulfate (Albuterol 2.5mg/3ml Neb Ud) 2.5 mg HHN Q4HR PRN PRN Reason: cough/wheeze Stop: 09/11/18 17:03 Amlodipine Besylate (Norvasc) 5 mg PO BID [facility] Stop: 09/12/18 08:59 Last Admin: 07/16/18 17:30 Dose: 5 mg Aspirin (Ecotrin) 81 mg PO DAILY [facility] Stop: 09/12/18 08:59 Last Admin: 07/16/18 09:09 Dose: 81 mg Bisacodyl (Dulcolax 10 Mg Supp) 10 mg RC DAILY PRN PRN Reason: Constipation Stop: 09/11/18 17:03 Cilostazol (Pletal) 100 mg PO DAILY [facility] Stop: 09/12/18 08:59 Last Admin: 07/16/18 09:09 Dose: 100 mg Docusate Sodium (Colace) 250 mg PO DAILY [facility] Stop: 09/12/18 08:59 Last Admin: 07/16/18 09:13 Dose: Not Given Donepezil HCl (Aricept) 10 mg PO [facility] Stop: 09/11/18 20:59 Last Admin: 07/15/18 20:42 Dose: 10 mg Escitalopram Oxalate (Lexapro) 5 mg PO DAILY [facility]; Protocol Stop: 09/12/18 08:59 Last Admin: 07/16/18 09:10 Dose: 5 mg Guaifenesin/Dextromethorphan (Robitussin Dm) 10 ml PO Q4HR PRN PRN Reason: Cough Stop: 09/11/18 17:03 Last Admin: 07/14/18 04:48 Dose: 10 ml Magnesium Hydroxide (Milk Of Magnesia) 30 ml PO HS PRN PRN Reason: Constipation Stop: 09/11/18 17:09 Multivitamins/Vitamin C (Theragran) 1 tab PO DAILY [facility] Stop: 09/12/18 08:59 Last Admin: 07/16/18 09:09 Dose: 1 tab Pantoprazole Sodium (Protonix) 40 mg PO DAILY [facility] Stop: 09/12/18 08:59 Last Admin: 07/16/18 09:09 Dose: 40 mg Psyllium Hydrophilic Mucilloid (Metamucil) 1 pkt PO BID [facility] Stop: 09/12/18 08:59 Last Admin: 07/16/18 17:29 Dose: 1 pkt Quetiapine Fumarate (Seroquel) 12.5 mg PO BID [facility]; Protocol Stop: 09/12/18 08:59 Last Admin: 07/16/18 17:30 Dose: 12.5 mg Sodium Chloride (Nacl Tab) 1 gm PO BID [facility] Stop: 09/12/18 08:59 Last Admin: 07/16/18 17:31 Dose: 1 gm Tramadol HCl (Ultram) 50 mg PO Q8H [facility] Stop: 09/11/18 17:14 Last Admin: 07/16/18 17:35 Dose: Not Given Zolpidem Tartrate (Ambien) 5 mg PO HS PRN PRN Reason: Insomnia Stop: 09/11/18 16:49 Last Admin: 07/15/18 20:42 Dose: 5 mg Physical Exam: 77 y/o female patient was admitted due to Aggressive behavior and refusing care. Patient continues to be confused and is easily irritated. We will continue to monitor and treat patient. General: weak, demented HEENT: NC/AT, PERRLA Neck: Supple, No JVD Lungs: CTAB Cardiovascular: RRR, Normal S1 Abdomen: soft, non-tender Extremities: other (Hx of polyneuropathy.) Neurological: no change Internal Medicine Assmt/Plan - Assessment Assessment: Aggressive behavior. Htn. Copd. Asthma. Dementia. History of Hyponatremia. Polyneuropathy. History of TIA. History of CVA. Psychosis. History of Migraines. - Plan Plan: Continuation of care. Monitor Vitals and Labs. Continue present meds as directed. Monitor Diet/Nutritional support. Psych management per Psych. Pain Management. Physical therapy. Occupational therapy. Safety precaution. Supportive care. Fall precaution, frequent nursing rounds, and as needed restraints to prevent fall. Continue collaborating with consulting specialists, case management and nursing team. Will Monitor patient and continue present care management. Nutritional Asmnt/Malnutr-PDOC - Dietary Evaluation Malnutrition Findings (Please click <Entered> for more info): see orders.
--- NOTE | 2018-07-17 03:33 | Progress Notes ---
DATE: 07/16/2018 Case was discussed with staff of the patient, reviewed records. The patient continues to be demented, confused, continues to have episodes of being irritable, staples, unable to follow staff direction, paranoid, suspicious. Continues to have poor insight. Continues to need redirection. No side effects with the medication, no sedation, no nausea, no extrapyramidal symptoms. We will continue to work with the patient in group therapy, milieu therapy, and adjust the medication as needed. JOB# [id number]
[2018-07-17] MEDS: Multivitamin Tab PO SCH (08:29)
[2018-07-17] MEDS: Pantoprazole 40 mg EC Tab PO SCH (08:29)
[2018-07-17] MEDS: Escitalopram Oxalate 5 mg Tab PO SCH (08:29)
--- NOTE | 2018-07-17 10:53 | Internal Medicine Prog Note ---
Internal Medicine Subjective - Subjective Service Date: 07/17/18 Patient seen and examined:: with staff Patient is:: awake, verbal, agitated, confused Patient Complaints of:: other (reamains having Aggressive behavior and easily frustrated.) Per staff patient has:: no adverse event, no episodes of fall Internal Medicine Objective - Results Result Diagrams: 07/13/18 14:50 07/13/18 14:50 Recent Labs: Laboratory Last Values WBC 5.5 Th/cmm (4.8-10.8) 07/13/18 14:50 RBC 4.27 Mil/cmm (3.80-5.20) 07/13/18 14:50 Hgb 11.9 gm/dL (12-16) L 07/13/18 14:50 Hct 36.5 % (41.0-60) L 07/13/18 14:50 MCV 85.4 fl (81-100) 07/13/18 14:50 MCH 27.8 pg (27.0-31.0) 07/13/18 14:50 MCHC Differential 32.5 pg (28.0-36.0) 07/13/18 14:50 RDW 14.0 % (11.5-20.0) 07/13/18 14:50 Plt Count 282 Th/cmm (150-400) 07/13/18 14:50 MPV 7.1 fl 07/13/18 14:50 Neutrophils % 55.3 % (40.0-80.0) 07/13/18 14:50 Lymphocytes % 33.5 % (20.0-50.0) 07/13/18 14:50 Monocytes % 10.1 % (2.0-10.0) H 07/13/18 14:50 Eosinophils % 0.7 % (0.0-5.0) 07/13/18 14:50 Basophils % 0.4 % (0.0-2.0) 07/13/18 14:50 Sodium 138 mEq/L (136-145) 07/13/18 14:50 Potassium 4.0 mEq/L (3.5-5.1) 07/13/18 14:50 Chloride 104 mEq/L (98-107) 07/13/18 14:50 Carbon Dioxide 28.9 mEq/L (21.0-31.0) 07/13/18 14:50 Anion Gap 9.1 (7.0-16.0) 07/13/18 14:50 BUN 18 mg/dL (7-25) 07/13/18 14:50 Creatinine 1.0 mg/dL (0.6-1.2) 07/13/18 14:50 Est GFR ( Amer) TNP 07/13/18 14:50 Est GFR (Non-Af Amer) TNP 07/13/18 14:50 BUN/Creatinine Ratio 18.0 07/13/18 14:50 Glucose 103 mg/dL (70-105) 07/13/18 14:50 Calcium 9.5 mg/dL (8.6-10.3) 07/13/18 14:50 Total Bilirubin 0.3 mg/dL (0.3-1.0) 07/13/18 14:50 AST 51 U/L (13-39) H 07/13/18 14:50 ALT 22 U/L (7-52) 07/13/18 14:50 Alkaline Phosphatase 103 U/L (34-104) 07/13/18 14:50 Total Protein 7.3 gm/dL (6.0-8.3) 07/13/18 14:50 Albumin 4.3 gm/dL (3.7-5.3) 07/13/18 14:50 Globulin 3.0 gm/dL 07/13/18 14:50 Albumin/Globulin Ratio 1.4 (1.0-1.8) 07/13/18 14:50 Triglycerides 45 mg/dL (<150) 07/13/18 14:50 Cholesterol 193 mg/dL (<200) 07/13/18 14:50 LDL Cholesterol Direct 101 mg/dL (75-193) 07/13/18 14:50 HDL Cholesterol 69 mg/dL (23-92) 07/13/18 14:50 TSH 0.95 uIU/ml (0.34-5.60) 07/13/18 14:50 Urine Source CLEAN C 07/13/18 16:20 Urine Color YELLOW 07/13/18 16:20 Urine Clarity SLIGHT HAZY (CLEAR) 07/13/18 16:20 Urine pH 6.5 (4.6 - 8.0) 07/13/18 16:20 Ur Specific [place] 1.015 (1.005-1.030) 07/13/18 16:20 Urine Protein TRACE mg/dL (NEGATIVE) 07/13/18 16:20 Urine Glucose (UA) NEGATIVE mg/dL (NEGATIVE) 07/13/18 16:20 Urine Ketones NEGATIVE mg/dL (NEGATIVE) 07/13/18 16:20 Urine Blood NEGATIVE (NEGATIVE) 07/13/18 16:20 Urine Nitrate NEGATIVE (NEGATIVE) 07/13/18 16:20 Urine Bilirubin NEGATIVE (NEGATIVE) 07/13/18 16:20 Urine Urobilinogen 0.2 E.U./dL (0.2 - 1.0) 07/13/18 16:20 Ur Leukocyte Esterase TRACE (NEGATIVE) H 07/13/18 16:20 Urine RBC 0-2 /hpf (0-5) 07/13/18 16:20 Urine WBC 0-2 /hpf (0-5) 07/13/18 16:20 Ur Epithelial Cells FEW /lpf (FEW) 07/13/18 16:20 Urine Bacteria FEW /hpf (NONE SEEN) 07/13/18 16:20 Salicylates < 25.0 mg/L (30.0-100.0) L 07/13/18 14:50 Urine Opiates Screen NEGATIVE (NEGATIVE) 07/13/18 16:20 Urine Methadone Screen NEGATIVE (NEGATIVE) 07/13/18 16:20 Acetaminophen < 10.0 ug/mL (10.0-30.0) L 07/13/18 14:50 Ur Barbiturates Screen NEGATIVE (NEGATIVE) 07/13/18 16:20 Ur Tricyclics Screen NEGATIVE (NEGATIVE) 07/13/18 16:20 Ur Phencyclidine Scrn NEGATIVE (NEGATIVE) 07/13/18 16:20 Amphetamines Screen NEGATIVE (NEGATIVE) 07/13/18 16:20 U Methamphetamines Scrn NEGATIVE (NEGATIVE) 07/13/18 16:20 U Benzodiazepines Scrn NEGATIVE (NEGATIVE) 07/13/18 16:20 U Cocaine Metab Screen NEGATIVE (NEGATIVE) 07/13/18 16:20 U Cannabinoids Screen NEGATIVE (NEGATIVE) 07/13/18 16:20 Ethyl Alcohol < 10 mg/dL (0-10) 07/13/18 14:50 RPR NONREACTIVE (NONREACTIVE) 07/13/18 14:50 - Physical Exam Vitals and I&O: Vital Signs Temp 97.9 F 07/17/18 05:45 Pulse 81 07/17/18 09:36 Resp 18 07/17/18 09:36 BP 145/82 07/17/18 08:27 Pulse Ox 97 07/17/18 09:36 Intake & Output 07/16/18 07/17/18 07/17/18 18:59 06:59 18:59 Intake Total 300 Balance 300 Intake: Oral 300 Other: # Voids 2 # Bowel Movements 0 Active Medications: Current Medications Acetaminophen (Tylenol Extra Strength) 1,000 mg PO Q4H PRN PRN Reason: Moderate pain Stop: 09/11/18 17:03 Last Admin: 07/14/18 14:07 Dose: 1,000 mg Acetaminophen (Tylenol) 650 mg PO Q4HR PRN PRN Reason: Pain (Mild) or Temp >101 Stop: 09/11/18 17:03 Al Hydrox/Mg Hydrox/Simethicone (Maalox) 30 ml PO Q4H PRN PRN Reason: Indigestion Stop: 09/11/18 17:03 Albuterol Sulfate (Albuterol 2.5mg/3ml Neb Ud) 2.5 mg HHN Q4HR PRN PRN Reason: cough/wheeze Stop: 09/11/18 17:03 Amlodipine Besylate (Norvasc) 5 mg PO BID REPLACED BY [facility] Stop: 09/12/18 08:59 Last Admin: 07/17/18 08:27 Dose: 5 mg Aspirin (Ecotrin) 81 mg PO DAILY REPLACED BY [facility] Stop: 09/12/18 08:59 Last Admin: 07/17/18 08:27 Dose: 81 mg Bisacodyl (Dulcolax 10 Mg Supp) 10 mg RC DAILY PRN PRN Reason: Constipation Stop: 09/11/18 17:03 Cilostazol (Pletal) 100 mg PO DAILY REPLACED BY [facility] Stop: 09/12/18 08:59 Last Admin: 07/17/18 08:28 Dose: 100 mg Docusate Sodium (Colace) 250 mg PO DAILY REPLACED BY [facility] Stop: 09/16/18 08:59 Donepezil HCl (Aricept) 10 mg PO HS REPLACED BY [facility] Stop: 09/11/18 20:59 Last Admin: 07/16/18 20:48 Dose: 10 mg Escitalopram Oxalate (Lexapro) 5 mg PO DAILY REPLACED BY [facility]; Protocol Stop: 09/12/18 08:59 Last Admin: 07/17/18 08:29 Dose: 5 mg Guaifenesin/Dextromethorphan (Robitussin Dm) 10 ml PO Q4HR PRN PRN Reason: Cough Stop: 09/11/18 17:03 Last Admin: 07/14/18 04:48 Dose: 10 ml Magnesium Hydroxide (Milk Of Magnesia) 30 ml PO HS PRN PRN Reason: Constipation Stop: 09/11/18 17:09 Multivitamins/Vitamin C (Theragran) 1 tab PO DAILY [facility] Stop: 09/12/18 08:59 Last Admin: 07/17/18 08:29 Dose: 1 tab Pantoprazole Sodium (Protonix) 40 mg PO DAILY REPLACED BY [facility] Stop: 09/12/18 08:59 Last Admin: 07/17/18 08:29 Dose: 40 mg Psyllium Hydrophilic Mucilloid (Metamucil) 1 pkt PO BID REPLACED BY [facility] Stop: 09/12/18 08:59 Last Admin: 07/17/18 08:30 Dose: 1 pkt Quetiapine Fumarate (Seroquel) 12.5 mg PO BID REPLACED BY [facility]; Protocol Stop: 09/12/18 08:59 Last Admin: 07/17/18 08:30 Dose: 12.5 mg Sodium Chloride (Nacl Tab) 1 gm PO BID REPLACED BY [facility] Stop: 09/12/18 08:59 Last Admin: 07/17/18 08:30 Dose: 1 gm Tramadol HCl (Ultram) 50 mg PO Q8H REPLACED BY [facility] Stop: 09/11/18 17:14 Last Admin: 07/17/18 08:30 Dose: 50 mg Zolpidem Tartrate (Ambien) 5 mg PO HS PRN PRN Reason: Insomnia Stop: 09/11/18 16:49 Last Admin: 07/16/18 20:48 Dose: 5 mg Physical Exam: 77 y/o female patient was admitted due to Aggressive behavior and refusing care. Patient continues to be dis-oriented and is easily frustrated, very paranoid. We will continue to monitor and treat patient. General: weak, demented HEENT: NC/AT, PERRLA Neck: Supple, No JVD Lungs: CTAB Cardiovascular: RRR, Normal S1 Abdomen: soft, non-tender Extremities: other (Hx of polyneuropathy.) Neurological: no change Internal Medicine Assmt/Plan - Assessment Assessment: Aggressive behavior. Htn. Copd. Asthma. Dementia. History of Hyponatremia. Polyneuropathy. History of TIA. History of CVA. Psychosis. History of Migraines. - Plan Plan: Continuation of care. Monitor Vitals and Labs. Continue present meds as directed. Monitor Diet/Nutritional support. Psych management per Psych. Pain Management. Physical therapy. Occupational therapy. Safety precaution. Supportive care. Fall precaution, frequent nursing rounds, and as needed restraints to prevent fall. Continue collaborating with consulting specialists, case management and nursing team. Will Monitor patient and continue present care management. Nutritional Asmnt/Malnutr-PDOC - Dietary Evaluation Malnutrition Findings (Please click <Entered> for more info): see orders.
--- NOTE | 2018-07-18 06:09 | Progress Notes ---
DATE: SUBJECTIVE: Chart was reviewed and the patient interviewed. Also discussed the patient's condition with the staff and reviewed records and labs. The patient is still confused and forgetful. The patient also is still paranoid. She also is still withdrawn. The patient also is interacting minimally with peers and with others. She also is still easily agitated. Otherwise, the patient still needs close monitoring because of her aggressive behavior and easily agitated and also forgetful and needs lots of redirections. ASSESSMENT: The patient is still psychotic and still agitated. TREATMENT PLAN: Continue to monitor behavior and condition closely and continue adjusting psychotropic medications and work on behavioral modification. [facility]# [id number]
[2018-07-18] MEDS: Escitalopram Oxalate 5 mg Tab PO SCH (09:12)
[2018-07-18] MEDS: Multivitamin Tab PO SCH (09:13)
[2018-07-18] MEDS: Pantoprazole 40 mg EC Tab PO SCH (09:13)
--- NOTE | 2018-07-18 18:58 | Progress Notes ---
DATE: SUBJECTIVE: Chart reviewed and the patient interviewed. Also discussed the patient's condition with the staff and reviewed records and labs. The patient is still forgetful and is still isolative and withdrawn. She is interacting minimally with others and wants to be left alone. The patient also still needs redirections because of her confusion and forgetfulness. The patient also is having difficulty expressing herself or expressing her needs or feelings. On the other hand, the patient seems to be less irritable and less agitated and more cooperative with treatment. ASSESSMENT: The patient is still psychotic and agitated, but seems to be slightly less than before. TREATMENT PLAN: Continue current medications, which is Seroquel 12.5 mg twice a day and Lexapro 5 mg every day as well as Aricept 10 mg every day. Also, continue to monitor her behavior and work on her severe level of depression and to follow up closely. JOB# [id number]
[2018-07-19] MEDS: Escitalopram Oxalate 5 mg Tab PO SCH (08:45)
[2018-07-19] MEDS: Multivitamin Tab PO SCH (08:47)
[2018-07-19] MEDS: Pantoprazole 40 mg EC Tab PO SCH (08:47)
--- NOTE | 2018-07-19 10:53 | Internal Medicine Prog Note ---
Internal Medicine Subjective - Subjective Service Date: 07/19/18 Patient is:: awake, verbal, agitated, confused Patient Complaints of:: other (reamains having Aggressive behavior and easily frustrated.) Per staff patient has:: no adverse event, no episodes of fall Internal Medicine Objective - Results Result Diagrams: 07/13/18 14:50 07/13/18 14:50 Recent Labs: Laboratory Last Values WBC 5.5 Th/cmm (4.8-10.8) 07/13/18 14:50 RBC 4.27 Mil/cmm (3.80-5.20) 07/13/18 14:50 Hgb 11.9 gm/dL (12-16) L 07/13/18 14:50 Hct 36.5 % (41.0-60) L 07/13/18 14:50 MCV 85.4 fl (81-100) 07/13/18 14:50 MCH 27.8 pg (27.0-31.0) 07/13/18 14:50 MCHC Differential 32.5 pg (28.0-36.0) 07/13/18 14:50 RDW 14.0 % (11.5-20.0) 07/13/18 14:50 Plt Count 282 Th/cmm (150-400) 07/13/18 14:50 MPV 7.1 fl 07/13/18 14:50 Neutrophils % 55.3 % (40.0-80.0) 07/13/18 14:50 Lymphocytes % 33.5 % (20.0-50.0) 07/13/18 14:50 Monocytes % 10.1 % (2.0-10.0) H 07/13/18 14:50 Eosinophils % 0.7 % (0.0-5.0) 07/13/18 14:50 Basophils % 0.4 % (0.0-2.0) 07/13/18 14:50 Sodium 138 mEq/L (136-145) 07/13/18 14:50 Potassium 4.0 mEq/L (3.5-5.1) 07/13/18 14:50 Chloride 104 mEq/L (98-107) 07/13/18 14:50 Carbon Dioxide 28.9 mEq/L (21.0-31.0) 07/13/18 14:50 Anion Gap 9.1 (7.0-16.0) 07/13/18 14:50 BUN 18 mg/dL (7-25) 07/13/18 14:50 Creatinine 1.0 mg/dL (0.6-1.2) 07/13/18 14:50 Est GFR ( Amer) TNP 07/13/18 14:50 Est GFR (Non-Af Amer) TNP 07/13/18 14:50 BUN/Creatinine Ratio 18.0 07/13/18 14:50 Glucose 103 mg/dL (70-105) 07/13/18 14:50 Calcium 9.5 mg/dL (8.6-10.3) 07/13/18 14:50 Total Bilirubin 0.3 mg/dL (0.3-1.0) 07/13/18 14:50 AST 51 U/L (13-39) H 07/13/18 14:50 ALT 22 U/L (7-52) 07/13/18 14:50 Alkaline Phosphatase 103 U/L (34-104) 07/13/18 14:50 Total Protein 7.3 gm/dL (6.0-8.3) 07/13/18 14:50 Albumin 4.3 gm/dL (3.7-5.3) 07/13/18 14:50 Globulin 3.0 gm/dL 07/13/18 14:50 Albumin/Globulin Ratio 1.4 (1.0-1.8) 07/13/18 14:50 Triglycerides 45 mg/dL (<150) 07/13/18 14:50 Cholesterol 193 mg/dL (<200) 07/13/18 14:50 LDL Cholesterol Direct 101 mg/dL (75-193) 07/13/18 14:50 HDL Cholesterol 69 mg/dL (23-92) 07/13/18 14:50 TSH 0.95 uIU/ml (0.34-5.60) 07/13/18 14:50 Urine Source CLEAN C 07/13/18 16:20 Urine Color YELLOW 07/13/18 16:20 Urine Clarity SLIGHT HAZY (CLEAR) 07/13/18 16:20 Urine pH 6.5 (4.6 - 8.0) 07/13/18 16:20 Ur Specific [place] 1.015 (1.005-1.030) 07/13/18 16:20 Urine Protein TRACE mg/dL (NEGATIVE) 07/13/18 16:20 Urine Glucose (UA) NEGATIVE mg/dL (NEGATIVE) 07/13/18 16:20 Urine Ketones NEGATIVE mg/dL (NEGATIVE) 07/13/18 16:20 Urine Blood NEGATIVE (NEGATIVE) 07/13/18 16:20 Urine Nitrate NEGATIVE (NEGATIVE) 07/13/18 16:20 Urine Bilirubin NEGATIVE (NEGATIVE) 07/13/18 16:20 Urine Urobilinogen 0.2 E.U./dL (0.2 - 1.0) 07/13/18 16:20 Ur Leukocyte Esterase TRACE (NEGATIVE) H 07/13/18 16:20 Urine RBC 0-2 /hpf (0-5) 07/13/18 16:20 Urine WBC 0-2 /hpf (0-5) 07/13/18 16:20 Ur Epithelial Cells FEW /lpf (FEW) 07/13/18 16:20 Urine Bacteria FEW /hpf (NONE SEEN) 07/13/18 16:20 Salicylates < 25.0 mg/L (30.0-100.0) L 07/13/18 14:50 Urine Opiates Screen NEGATIVE (NEGATIVE) 07/13/18 16:20 Urine Methadone Screen NEGATIVE (NEGATIVE) 07/13/18 16:20 Acetaminophen < 10.0 ug/mL (10.0-30.0) L 07/13/18 14:50 Ur Barbiturates Screen NEGATIVE (NEGATIVE) 07/13/18 16:20 Ur Tricyclics Screen NEGATIVE (NEGATIVE) 07/13/18 16:20 Ur Phencyclidine Scrn NEGATIVE (NEGATIVE) 07/13/18 16:20 Amphetamines Screen NEGATIVE (NEGATIVE) 07/13/18 16:20 U Methamphetamines Scrn NEGATIVE (NEGATIVE) 07/13/18 16:20 U Benzodiazepines Scrn NEGATIVE (NEGATIVE) 07/13/18 16:20 U Cocaine Metab Screen NEGATIVE (NEGATIVE) 07/13/18 16:20 U Cannabinoids Screen NEGATIVE (NEGATIVE) 07/13/18 16:20 Ethyl Alcohol < 10 mg/dL (0-10) 07/13/18 14:50 RPR NONREACTIVE (NONREACTIVE) 07/13/18 14:50 - Physical Exam Vitals and I&O: Vital Signs Temp 97.9 F 07/19/18 06:36 Pulse 76 07/19/18 08:46 Resp 18 07/19/18 07:13 BP 120/67 07/19/18 08:46 Pulse Ox 97 07/19/18 07:13 Intake & Output 07/18/18 07/19/18 07/19/18 18:59 06:59 18:59 Intake Total 1000 180 Balance 1000 180 Intake: Oral 1000 180 Other: # Voids 4 2 # Bowel Movements 1 0 Active Medications: Current Medications Acetaminophen (Tylenol Extra Strength) 1,000 mg PO Q4H PRN PRN Reason: Moderate pain Stop: 09/11/18 17:03 Last Admin: 07/14/18 14:07 Dose: 1,000 mg Acetaminophen (Tylenol) 650 mg PO Q4HR PRN PRN Reason: Pain (Mild) or Temp >101 Stop: 09/11/18 17:03 Al Hydrox/Mg Hydrox/Simethicone (Maalox) 30 ml PO Q4H PRN PRN Reason: Indigestion Stop: 09/11/18 17:03 Albuterol Sulfate (Albuterol 2.5mg/3ml Neb Ud) 2.5 mg HHN Q4HR PRN PRN Reason: cough/wheeze Stop: 09/11/18 17:03 Amlodipine Besylate (Norvasc) 5 mg PO BID [facility] Stop: 09/12/18 08:59 Last Admin: 07/19/18 08:46 Dose: 5 mg Aspirin (Ecotrin) 81 mg PO DAILY [facility] Stop: 09/12/18 08:59 Last Admin: 07/19/18 08:46 Dose: 81 mg Bisacodyl (Dulcolax 10 Mg Supp) 10 mg RC DAILY PRN PRN Reason: Constipation Stop: 09/11/18 17:03 Cilostazol (Pletal) 100 mg PO DAILY [facility] Stop: 09/12/18 08:59 Last Admin: 07/19/18 08:44 Dose: 100 mg Docusate Sodium (Colace) 250 mg PO DAILY [facility] Stop: 09/16/18 08:59 Last Admin: 07/19/18 08:45 Dose: 250 mg Donepezil HCl (Aricept) 10 mg PO HS [facility] Stop: 09/11/18 20:59 Last Admin: 07/18/18 21:31 Dose: 10 mg Escitalopram Oxalate (Lexapro) 5 mg PO DAILY [facility]; Protocol Stop: 09/12/18 08:59 Last Admin: 07/19/18 08:45 Dose: 5 mg Guaifenesin/Dextromethorphan (Robitussin Dm) 10 ml PO Q4HR PRN PRN Reason: Cough Stop: 09/11/18 17:03 Last Admin: 07/14/18 04:48 Dose: 10 ml Magnesium Hydroxide (Milk Of Magnesia) 30 ml PO HS PRN PRN Reason: Constipation Stop: 09/11/18 17:09 Multivitamins/Vitamin C (Theragran) 1 tab PO DAILY [facility] Stop: 09/12/18 08:59 Last Admin: 07/19/18 08:47 Dose: 1 tab Pantoprazole Sodium (Protonix) 40 mg PO DAILY [facility] Stop: 09/12/18 08:59 Last Admin: 07/19/18 08:47 Dose: 40 mg Psyllium Hydrophilic Mucilloid (Metamucil) 1 pkt PO BID [facility] Stop: 09/12/18 08:59 Last Admin: 07/19/18 08:45 Dose: 1 pkt Quetiapine Fumarate (Seroquel) 12.5 mg PO BID [facility]; Protocol Stop: 09/12/18 08:59 Last Admin: 07/19/18 08:46 Dose: 12.5 mg Sodium Chloride (Nacl Tab) 1 gm PO BID [facility] Stop: 09/12/18 08:59 Last Admin: 07/19/18 08:47 Dose: 1 gm Tramadol HCl (Ultram) 50 mg PO Q8H [facility] Stop: 09/11/18 17:14 Last Admin: 07/19/18 08:46 Dose: 50 mg Zolpidem Tartrate (Ambien) 5 mg PO HS PRN PRN Reason: Insomnia Stop: 09/11/18 16:49 Last Admin: 07/18/18 21:31 Dose: 5 mg General: weak, demented HEENT: NC/AT, PERRLA Neck: Supple, No JVD Lungs: CTAB Cardiovascular: RRR, Normal S1 Abdomen: soft, non-tender Extremities: other (Hx of polyneuropathy.) Neurological: no change
--- NOTE | 2018-07-19 22:29 | Progress Notes ---
DATE: 07/19/2018 SUBJECTIVE: Chart was reviewed and the patient interviewed. Also discussed the patient's condition with the staff and reviewed records and labs. The patient is still anxious and is still withdrawn. The patient also is feeling hopeless and helpless, and she still needs a lot of monitoring and help. She also still has lack of motivations and lack of energy. Otherwise, the patient continued to comply with taking her medications with no side effects of medications. ASSESSMENT: The patient is still depressed. TREATMENT PLAN: Continue monitoring her behavior closely. Also, continue Lexapro, Seroquel, and Aricept and we will continue to follow up her. JOB# [id number]
[2018-07-20] MEDS: Multivitamin Tab PO SCH (08:36)
[2018-07-20] MEDS: Pantoprazole 40 mg EC Tab PO SCH (08:37)
[2018-07-20] MEDS: Escitalopram Oxalate 5 mg Tab PO SCH (08:38)
--- NOTE | 2018-07-20 11:04 | Discharge Summary ---
DATE OF DISCHARGE: 07/20/2018 THE PATIENT'S AGE: 77. SEX: Male. PHYSICIAN: Dr. Cruz. FINAL DIAGNOSIS: PRIMARY DIAGNOSIS: Unspecified psychosis. SECONDARY DIAGNOSES: Dementia, moderate to severe, with psychotic features and behavioral disturbances. REASON FOR HOSPITALIZATION: The patient was admitted to the hospital because of increased agitation and irritability in [facility] where the patient lives. HOSPITAL COURSE: The patient continued to be anxious and in a depressed mood. The patient also is agitated and irritable. The patient also was started on Lexapro a dose of 5 mg every day and Seroquel 12.5 mg twice a day. Gradually, the patient's affect was brighter. The patient was less agitated and less irritable. The patient also was not suicidal or homicidal, and the patient was discharged from the hospital. The patient went back to [place]. Physical exam of the patient basically showed no major medical problems. The patient also has no behavioral issues at the time of discharge: AFTER DISCHARGE PLANS: The patient went back to [place] with plans for outpatient treatment there. Physical exam of the patient shows no major behavioral problems. EXPECTED OUTCOME AFTER DISCHARGE: Fair if the patient continues with her outpatient treatment and follow up with discharge plans. EXPECTED OUTCOME AFTER DISCHARGE: Fair if the patient will follow up with discharge plans and to continue to take her medications. [facility]# [id number]
== END 2018-07-20 14:15 | DRG 885 ==
LOC: ER 14:01 → GERO2 15:45
PROVIDERS: ADMIT Psychiatry & Neurology Psychiatry; ATTEND Psychiatry & Neurology Psychiatry
DX: F29 Unspecified psychosis not due to a substance or known physiological condition (principal); F03.91 Unspecified dementia, unspecified severity, with behavioral disturbance; I10 Essential (primary) hypertension; J44.9 Chronic obstructive pulmonary disease, unspecified; K21.9 Gastro-esophageal reflux disease without esophagitis; G43.909 Migraine, unspecified, not intractable, without status migrainosus; G62.9 Polyneuropathy, unspecified; Z86.73 Personal history of transient ischemic attack (TIA), and cerebral infarction without residual deficits; Z87.891 Personal history of nicotine dependence; Z88.8 Allergy status to other drugs, medicaments and biological substances
CPT/HCPCS: 36415-UA; 80053-TC; 80061-TC; 80307; 80320-TC; 80329-TC; 81001-TC; 83036-90; 84443-TC; 85025-TC; 86592-TC; 93005; 94760; G0410; Z7610